=== PATIENT | female | born 1990 | race Caucasian/White ===

== ENCOUNTER 2022-09-25 09:32 | Outpatient (OUT) | payer OTHER, SELFPAY ==
--- NOTE | 2022-09-25 10:30 | US_ITS ---
The [address] [address] Patient Name: HERBERT VIEYRA MRN: [id number] date: 1990 Sex: F Assigned Patient Location: [place] Current Patient Location: [place] Accession/Order Number: [id number] Exam Date: 09/25/2022 09:52 Report Date: 09/25/2022 11:14 At the request of: TIM PANDYA Procedure: US renal bladder EXAM: US renal bladder HISTORY: . URINARY TRACT INFECTION COMPARISON: None. TECHNIQUE: Grayscale and color imaging was performed FINDINGS: Scanning of the right kidney demonstrates right kidney measures 12 x 4.1 x 6.1 cm. Color-flow is noted. No solid renal cortical masses or hydronephrosis is noted. Renal cortical echotexture is unremarkable. Left kidney measures 12.7 x 5 x 5.4 cm. Color-flow is noted. No solid renal cortical masses or hydronephrosis is noted. There is a 9 mm nonobstructing left renal calculus. Renal cortical echotexture is unremarkable. IMPRESSION: 1. Normal-appearing right kidney. 2. 9 mm nonobstructing left renal calculus. Electronically authenticated by: GERSNO MAYBERRY Date: 09/25/2022 11:14
== END 2022-09-25 09:33 ==
LOC: US 09:37
PROVIDERS: PCP Family Medicine; Visit Provider Urology
DX: N20.0 Calculus of kidney (principal)
CPT/HCPCS: 76770

== ENCOUNTER 2022-10-18 14:37 | Observation (INO) | payer OTHER, SELFPAY ==
--- NOTE | 2022-10-18 14:40 | US_ITS ---
[address] [address] Patient Name: HERBERT VIEYRA MRN: [id number] date: 1990 Sex: F Assigned Patient Location: [facility] Current Patient Location: [facility] Accession/Order Number: [id number] Exam Date: 10/18/2022 14:41 Report Date: 10/18/2022 15:35 At the request of: SAMUEL ATKINSON Procedure: US renal BI EXAMINATION: US renal BI HISTORY: back pain COMPARISON: No relevant comparison available. TECHNIQUE: Ultrasound examination was performed of the bladder. FINDINGS: Right Kidney: Normal in size, contour and echotexture. The cortex measures 1.4 cm. No hydronephrosis, obstructing nephrolithiasis or solid cortical mass Height: 4.1 cm Length: 11.6 cm Width: 5.5 cm Left Kidney: Normal size, contour and echotexture. The cortex measures 2.0 cm. Moderate hydronephrosis Height: 6.5 cm Length: 14.1 cm Width: 6.1 cm The urinary bladder is not visualized. head observed in the pelvis IMPRESSION: Moderate left hydronephrosis of unknown etiology. This could be related to intrauterine gestation or an unseen obstruction Electronically authenticated by: GERSON MELLO Date: 10/18/2022 15:35
--- NOTE | 2022-10-18 14:40 | US_ITS ---
[address] [address] Patient Name: HERBERT VIEYRA MRN: [id number] date: 1990 Sex: F Assigned Patient Location: [facility] Current Patient Location: [facility] Accession/Order Number: [id number] Exam Date: 10/18/2022 14:41 Report Date: 10/18/2022 15:32 At the request of: SAMUEL ATKINSON Procedure: US OB BPP w non-stress EXAMINATION: US OB BPP w non-stress HISTORY: back pain COMPARISON: No relevant comparison available. TECHNIQUE: Ultrasound biophysical profile was performed in the radiology department. FINDINGS: BREATHING MOVEMENTS: 2.0 GROSS BODY MOVEMENTS: 2.0 TONE: 2.0 QUALITATIVE AMNIOTIC FLUID VOLUME: 2.0 PRESENTATION: CEPHALIC HEART RATE: 140.6 bpm H.B./min AMNIOTIC FLUID VOLUME: 16.0 cm cm GESTATIONAL AGE: 32 weeks 5 days CONCLUSION: Total biophysical profile score: 8.0 Electronically authenticated by: GERSON MELLO Date: 10/18/2022 15:32
[2022-10-18] MEDS: ACETAMINOPHEN 500 MG TABLET 1000 MG PO (14:51)
[2022-10-18 15:20] VITALS: BP 82/49; PULSE 71
[2022-10-18 15:28] LABS: Bilirubin Urine NEGATIVE (NEGATIVE); Blood Urine NEGATIVE (NEGATIVE); Clarity Urine CLEAR (CLEAR); Color Urine YELLOW (YELLOW); Glucose Urine UA NEGATIVE (NEGATIVE); Ketones Urine NEGATIVE (NEGATIVE); Leukocyte Esterase Urine NEGATIVE (NEGATIVE); Nitrite Urine NEGATIVE (NEGATIVE); Protein Urine TRACE mg/dL (NEG/TRACE); Specific Gravity Urine >=1.030 (1.005-1.025); Urine Microscopic Indicated NO; Urobilinogen Urine 0.2 EU/dL (0.2-1.0)
[2022-10-18 15:39] LABS: Amphetamine Screen Urine NEGATIVE (NEGATIVE); Barbiturates Screen Urine NEGATIVE (NEGATIVE); Benzodiazepines Screen Urine NEGATIVE (NEGATIVE); Buprenorphine Screen Urine NEGATIVE (NEGATIVE); Cannabinoid Screen Urine POSITIVE (NEGATIVE); Cocaine Screen Urine NEGATIVE (NEGATIVE); Methadone Screen Urine NEGATIVE (NEGATIVE); Methamphetamines Screen Urine NEGATIVE (NEGATIVE); Opiate Screen Urine NEGATIVE (NEGATIVE); Oxycodone Screen Urine NEGATIVE (NEGATIVE); Phencyclidine Screen Urine NEGATIVE (NEGATIVE); Tricyclic Antidepressant Urine NEGATIVE (NEGATIVE)
[2022-10-18 15:41] VITALS: BP 92/50; PULSE 71
[2022-10-18] MEDS: 0.9 % SODIUM CHLORIDE 1,000 ML 1000 ML IV (16:09)
[2022-10-18] MEDS: 0.9 % SODIUM CHLORIDE 1,000 ML 125 ML IV (17:10)
== END 2022-10-18 18:10 | disposition home or self-care (01) ==
LOC: FBC 14:37
PROVIDERS: Admitting Provider Obstetrics & Gynecology; PCP Family Medicine; Visit Provider Obstetrics & Gynecology
DX: O26.893 Other specified pregnancy related conditions, third trimester (principal); M54.9 Dorsalgia, unspecified; Z3A.32 32 weeks gestation of pregnancy
CPT/HCPCS: 59025; 76775; 76818; 80307; 81003; G0378; G0379

== ENCOUNTER 2022-10-20 21:09 | Observation (INO) | payer OTHER, SELFPAY ==
[2022-10-20 21:33] VITALS: BP 106/57; PULSE 78
[2022-10-20 21:35] VITALS: PULSE 78; RESP 20; TEMP 35.6; TEMP 35.9
[2022-10-20 21:50] LABS: Bilirubin Urine NEGATIVE (NEGATIVE); Blood Urine TRACE-I (NEGATIVE); Clarity Urine CLEAR (CLEAR); Color Urine YELLOW (YELLOW); Glucose Urine UA NEGATIVE (NEGATIVE); Ketones Urine NEGATIVE (NEGATIVE); Leukocyte Esterase Urine NEGATIVE (NEGATIVE); Nitrite Urine NEGATIVE (NEGATIVE); Protein Urine 30 mg/dL (NEG/TRACE); Specific Gravity Urine >=1.030 (1.005-1.025); Urobilinogen Urine 0.2 EU/dL (0.2-1.0)
[2022-10-20 21:53] LABS: Urine Microscopic Indicated YES
[2022-10-20 21:56] LABS: Bacteria Urine SMALL #/HPF (NONE SEEN)
[2022-10-20 21:57] LABS: Calcium Oxalate Crystals Urine FEW; Cast Seen? NONE SEEN #/LPF (NONE SEEN); Crystals Seen? Seen #/HPF (None Seen); Mucus Urine NONE SEEN (NONE SEEN); Squamous Epithelial Cell Urine MANY #/LPF (NONE/RARE); Urine Culture Indicated YES
[2022-10-20 22:45] LABS: Basophils Percent Auto 0.3 % (0.2-2.0); Eosinophils Absolute Auto 0.1 10^3/uL (0.0-0.7); Eosinophils Percent Auto 0.8 % (0.9-7.0); Hematocrit 30.5 % (36.0-48.0); Hemoglobin 10.6 g/dL (12.0-16.0); Immature Granulocytes Pct Auto 0.9 % (0.0-0.5); Mean Corpuscular HGB Conc 34.8 g/dL (29.9-35.2); Mean Corpuscular Hemoglobin 32.4 pg (26.7-34.0); Mean Corpuscular Volume 93.3 fL (81.0-99.0); Mean Platelet Volume 9.8 fL (9.5-13.5); Monocytes Absolute Auto 0.9 10^3/uL (0.3-0.8); Monocytes Percent Auto 7.6 % (1.7-12.0); Neutrophils Absolute Auto 8.5 10^3/uL (1.4-6.5); Neutrophils Percent Auto 73.4 % (43.0-75.0); Platelet Count 214 10^3/uL (150-450); Red Blood Count 3.27 10^6/uL (4.20-5.40); Red Cell Distribution Width 12.5 % (11.0-15.0); White Blood Count 11.6 10^3/uL (4.0-11.0)
[2022-10-20 22:53] LABS: Alanine Aminotransferase 17 U/L (14-59); Amylase 38 U/L (25-115); Anion Gap 12.3; Aspartate Amino Transferase 15 U/L (15-37); Carbon Dioxide 22.7 mmol/L (21.0-32.0); Chloride 105 mmol/L (98-107); Estimated GFR (African America 56 (>=60); Estimated GFR (Non-African Ame 46 (>=60); Sodium 136 mmol/L (136-145)
[2022-10-20] MEDS: 0.9 % SODIUM CHLORIDE 1,000 ML 125 ML IV (23:01)
[2022-10-20] MEDS: NALBUPHINE HCL 10 MG/ML AMPULE IV (23:01)
--- NOTE | 2022-10-20 23:30 | PC.NURSE ---
Patient more comfortable and dozing at this time.
[2022-10-21] VITALS (18 sets, daily range): BP systolic 89–112; BP diastolic 49–75; PULSE 67–88; RESP 14–25; TEMP 36.1–37.1; O2SAT 95–100
[2022-10-21] MEDS: 0.9 % SODIUM CHLORIDE 1,000 ML 125 ML IV (00:04)
[2022-10-21] MEDS: CEFAZOLIN SODIUM/DEXTROSE 2 GM/50 ML PIGGYBACK IV (00:06)
--- NOTE | 2022-10-21 01:18 | PC.NURSE ---
Care relinquished to Duyen Lucero RN
[2022-10-21] MEDS: 0.9 % SODIUM CHLORIDE 1,000 ML 175 ML IV ×2 (05:49→12:14)
--- NOTE | 2022-10-21 07:00 | US_ITS ---
[address] [address] Patient Name: HERBERT VIEYRA MRN: [id number] date: 1990 Sex: F Assigned Patient Location: [facility] Current Patient Location: [facility] Accession/Order Number: [id number] Exam Date: 10/21/2022 07:20 Report Date: 10/21/2022 07:59 At the request of: MELISSA RENDON Procedure: US renal BI EXAM: Renal and bladder ultrasound CLINICAL INDICATION: Flank pain/ kidney stone. TECHNIQUE: Grayscale and color Doppler imaging was obtained of both kidneys. FINDINGS: RIGHT: No hydronephrosis. Cortical echogenicity and thickness is preserved. The kidney measures 10.9 cm length. 4 mm right calyceal nonobstructing stone. No abnormal renal masses identified. LEFT: Moderate left hydronephrosis is not significantly changed compared to 10/10/2022. Cortical echogenicity and thickness is preserved. The kidney measures 13.4 cm length. No sonographically evident renal calculi. No abnormal renal masses identified. Bladder: No obvious sonographic abnormality. IMPRESSION: Moderate left hydronephrosis is not significantly changed. Electronically authenticated by: ADIS KAPLAN Date: 10/21/2022 07:59
--- NOTE | 2022-10-21 07:13 | P.OBHP_ITS ---
OB - H&P: HPI History of Present Illness Chief complaint: BACK PAIN , CVA tenderness : 3 Para: 2 Gestational age based on last menstrual period: 32 6/7wks Meds Home Medications and Allergies Allergies Allergy/AdvReac Type Severity Reaction Status Date / Time No Known Allergies Allergy Verified 10/20/22 22:22 Exam Constitutional Vital Signs - 24 hr 10/20/22 21:33 10/20/22 21:35 10/20/22 21:35 Temperature 96.1 F L 96.7 F L Pulse Rate 78 78 Respiratory Rate 20 Blood Pressure 106/57 L Results Labs Labs: Short CBC 10/20/22 Range/Units 22:35 WBC 11.6 H (4.0-11.0) 10^3/uL Hgb 10.6 L (12.0-16.0) g/dL Hct 30.5 L (36.0-48.0) % Plt Count 214 (150-450) 10^3/uL BMP 10/20/22 22:35 Sodium 136 Potassium 4.0 Chloride 105 Carbon Dioxide 22.7 BUN 14.0 Creatinine 1.35 H Liver Function 10/20/22 Range/Units 22:35 AST 15 (15-37) U/L ALT 17 (14-59) U/L Urine 10/20/22 Range/Units 21:30 Urine Color Yellow (YELLOW) Urine Clarity Clear (CLEAR) Urine pH 6.0 (5.0-9.0) Ur Specific [place] >=1.030 A (1.005-1.025) Urine Protein 30 A (NEG/TRACE) mg/dL Urine Glucose (UA) Negative (NEGATIVE) mg/dL
--- NOTE | 2022-10-21 07:16 | PM.OBLDTN ---
OB - Triage/Final Diagnosis Visit Information Date of evaluation: 10/21/22 Reason for evaluation: other Comments/Additional reasons for admission: pt here for lt sided flank pain, nausea/vomiting, denies fevers, chills, denies urinay symptoms, positive fm, ua shows crystals and calcium oxalate along with hematuria Evaluation Laboratory results: Laboratory Tests 10/20/22 10/20/22 21:30 22:35 WBC 11.6 H RBC 3.27 L Hgb 10.6 L Hct 30.5 L MCV 93.3 MCH 32.4 MCHC 34.8 RDW 12.5 Plt Count 214 MPV 9.8 Neut % (Auto) 73.4 Lymph % (Auto) 17.0 L [place] % (Auto) 7.6 Eos % (Auto) 0.8 L Baso % (Auto) 0.3 Neut # (Auto) 8.5 H Lymph # (Auto) 2.0 [place] # (Auto) 0.9 H Eos # (Auto) 0.1 Baso # (Auto) 0.0 Abs Immat Gran (auto) 0.10 H Imm/Tot Granulo (auto) 0.9 H Sodium 136 Potassium 4.0 Chloride 105 Carbon Dioxide 22.7 Anion Gap 12.3 BUN 14.0 Creatinine 1.35 H Est GFR ( Amer) 56 L Est GFR (Non-Af Amer) 46 L AST 15 ALT 17 Amylase 38 Lipase 73.0 Urine Color Yellow Urine Clarity Clear Urine pH 6.0 Ur Specific [place] >=1.030 A Urine Protein 30 A Urine Glucose (UA) Negative Urine Ketones Negative Urine Occult Blood Trace-i Urine Nitrite Negative Urine Bilirubin Negative Urine Urobilinogen 0.2 Ur Leukocyte Esterase Negative Urine RBC 2-5 A Urine WBC 5-10 A Ur Squamous Epith Cells Many A Urine Crystals Seen A Calcium Oxalate Crystal Few Urine Bacteria Small A Urine Casts None seen Urine Mucus None seen Ur Culture Indicated? Yes Vital signs: Vital Signs - 24 hr 10/20/22 21:33 10/20/22 21:35 10/20/22 21:35 Temperature 96.1 F L 96.7 F L Pulse Rate 78 78 Respiratory Rate 20 Blood Pressure 106/57 L heart rate baseline: 110 keno terminal operator variability: Moderate (6-25 bpm) monitor accelerations: Present monitor decelerations: None
--- NOTE | 2022-10-21 07:21 | PM.OBPN ---
OB - PN: Subj Subjective Interval history: pt is a 32 yo at 32 6/7wks presents with lt sided flank pain, nausea and vomiting, pt denies fevers, chills, complains of suprapubic pain positive fm, denies vaginal bleeding, ctxns, lof Patient comments: other Exam Constitutional Vital Signs - 24 hr 10/20/22 21:33 10/20/22 21:35 10/20/22 21:35 Temperature 96.1 F L 96.7 F L Pulse Rate 78 78 Respiratory Rate 20 Blood Pressure 106/57 L Documenting provider has reviewed patient's vital signs: yes Common normals: alert General appearance: cooperative Respiratory Common normals: normal respiratory effort and clear to auscultation bilaterally Cardio Common normals: regular rate and regular rhythm GI Common normals: Normal to inspection, nondistended, normoactive bowel sounds present, soft to palpation and non-tender Auscultation: normoactive bowel sounds Common normals: CVA tenderness (lt sided cva tenderness) Bladder/kidney exam: CVA tenderness on the left Extremity Common normals: normal to inspection, no clubbing, cyanosis or edema and no calf tenderness Results Labs Labs: Short CBC 10/20/22 Range/Units 22:35 WBC 11.6 H (4.0-11.0) 10^3/uL Hgb 10.6 L (12.0-16.0) g/dL Hct 30.5 L (36.0-48.0) % Plt Count 214 (150-450) 10^3/uL BMP 10/20/22 22:35 Sodium 136 Potassium 4.0 Chloride 105 Carbon Dioxide 22.7 BUN 14.0 Creatinine 1.35 H Liver Function 10/20/22 Range/Units 22:35 AST 15 (15-37) U/L ALT 17 (14-59) U/L Urine 10/20/22 Range/Units 21:30 Urine Color Yellow (YELLOW) Urine Clarity Clear (CLEAR) Urine pH 6.0 (5.0-9.0) Ur Specific [place] >=1.030 A (1.005-1.025) Urine Protein 30 A (NEG/TRACE) mg/dL Urine Glucose (UA) Negative (NEGATIVE) mg/dL OB - PN: A/P Assessment and Plan (1) Kidney stones: Plan lt sided cva tenderness, suprapubic pain, ho kidney stones-cont iv hydration, cont iv abx, labs reviewed, awaiting renal ultrasound, considering urology consult Time Spent with Patient Time: Total time spent is greater than 50% in coordination of care (as documented) at patient's floor/unit and/or counseling patient: Total time spent with greater than 50% in coordination of care (as documented) at patient's floor/unit and/or counseling patient: 25 - 35 minutes
--- NOTE | 2022-10-21 08:25 | US_ITS ---
The [address] [address] Patient Name: HERBERT VIEYRA MRN: [id number] date: 1990 Sex: F Assigned Patient Location: [facility] Current Patient Location: [facility] Accession/Order Number: [id number] Exam Date: 10/21/2022 09:10 Report Date: 10/21/2022 10:22 At the request of: TIM PANDYA Procedure: US bladder US bladder CLINICAL HISTORY: left flank pain, elevated creatinine COMPARISON: 10/21/2022. TECHNIQUE: Routine transverse and longitudinal grayscale images of the bladder. FINDINGS: Visualized lower pelvis demonstrates intrauterine with cephalic presentation. Cervix not well evaluated. No other imaging is provided. Mild urinary bladder distention. Right ureteral jet is seen with none on the left after 15 minute visualization. Urinary bladder with 98 mL prevoid volume. No significant post void residual. Focused imaging left kidney demonstrates unchanged moderate left hydronephrosis pre and post. IMPRESSION: Mild urinary bladder distention but with persistent unchanged moderate left hydronephrosis both pre and post void. No left ureteral jet seen for 15 minutes. Electronically authenticated by: DAR ESCUDERO Date: 10/21/2022 10:22
[2022-10-21] MEDS: ONDANSETRON PF 4 MG/2 ML VIAL IV ×2 (09:04→14:49)
[2022-10-21] MEDS: NALBUPHINE HCL 10 MG/ML AMPULE IV (09:18)
--- NOTE | 2022-10-21 11:00 | XR_ITS ---
[address] [address] Patient Name: HERBERT VIEYRA MRN: [id number] date: 1990 Sex: F Assigned Patient Location: [facility] Current Patient Location: [facility] Accession/Order Number: [id number] Exam Date: 10/21/2022 11:00 Report Date: 10/21/2022 21:28 At the request of: TIM PANDYA Procedure: XR urethrogram retrograde X-RAY RETROGRADE CYSTOURETHROGRAM HISTORY: LEFT KIDNEY STONE COMPARISON: None. DLP/Contrast: 1.23 mGycm FINDINGS/IMPRESSION: There was one image a provided for interpretation. There is contrast in the left renal collecting system with mild hydronephrosis. There is a left ureteral stent proximal portion visualized. Correlate with procedure note. Electronically authenticated by: DINORA BARRAZA Date: 10/21/2022 21:28
--- NOTE | 2022-10-21 11:23 | PM.CN ---
Consult Note: HPI Data of Consult Consult date: 10/21/22 Requesting Physician: Chandu Hernandez DO Primary Care Provider: VICTORIANO RINCON Consult Narrative Reason for consult: left hydronephrosis, CAMPBELL, renal colic, history of kidney stone Narrative: 32 year old female at 32 6/7wks gestation with a history of BL renal stones presents with worsening left sided flank pain, nausea and vomiting. Pt denies fevers, chills, dysuria. Labs showed CAMPBELL Cr 1.3, mild leukocytosis 11, UA neg for UTI. Renal US shows moderate L hydronephrosis, prior left lower pole renal stone from US 09/21/22 no longer seen. No ureteral jets were obtained during this US. Repeat later showed no left ureteral jet x 15 minutes. Pt continues to have uncontrolled pain, nausea and emesis. On empiric Ancef. Seen outpt 09/20/22 - at that time she had mild L hydronephrosis with 9 mm LLP stone from recent renal US. Repeat renal US showed no hydronephrosis, 9mm LLP non obstructing stone in place, BL ureteral jets. She was asymptomatic until this past week, likely due to stone now passing. cc:: CC: Chandu Hernandez DO Review of Systems ROS Constitutional Denies: fever or chills Eyes Denies: change in vision or blurry vision Cardiovascular Denies: chest pain or palpitations Respiratory Denies: shortness of breath or cough Gastrointestinal Reports: abdominal pain (LLQ ), nausea and vomiting Genitourinary Reports: pelvic pain; Denies: painful urination Musculoskeletal Reports: back pain; Denies: extremity pain Integumentary/Breast Denies: rash or itching Neurological Denies: headache or numbness in extremities Psychiatric Denies: anxiety or memory loss Meds Home Medications and Allergies Home Medications Medication Instructions Recorded Confirmed Type cephalexin 500 mg capsule 500 mg PO TID 7 days #21 caps 10/21/22 Rx oxycodone-acetaminophen 5 mg-325 1 tab PO Q6H PRN pain 5 days #20 10/21/22 Rx mg tablet (Percocet) tabs Allergies Allergy/AdvReac Type Severity Reaction Status Date / Time No Known Allergies Allergy Verified 10/20/22 22:22 Exam Narrative Exam Narrative: Lying in bed. Moderate to severe distress Sweating, appears uncomfortable Non labored respirations, on room air Normal rate and rhythm Abd gravity, LLQ/hip pain No BL CVA tenderness Moves all extremities Motor/sensation intact, no acute focal deficits Appropriate, cooperative, alert and oriented Constitutional Vital Signs - 24 hr 10/20/22 21:33 10/20/22 21:35 10/21/22 09:58 Temperature 96.1 F L Pulse Rate 78 71 Respiratory Rate Blood Pressure 106/57 L 112/55 L Blood Pressure [Left Radial Artery] 10/20/22 21:35 10/21/22 09:00 Temperature 96.7 F L 98.2 F Pulse Rate 78 75 Respiratory Rate 20 18 Blood Pressure Blood Pressure [Left Radial Artery] 112/75 Results Labs Labs: Short CBC 10/20/22 Range/Units 22:35 WBC 11.6 H (4.0-11.0) 10^3/uL Hgb 10.6 L (12.0-16.0) g/dL Hct 30.5 L (36.0-48.0) % Plt Count 214 (150-450) 10^3/uL BMP 10/20/22 22:35 Sodium 136 Potassium 4.0 Chloride 105 Carbon Dioxide 22.7 BUN 14.0 Creatinine 1.35 H Liver Function 10/20/22 Range/Units 22:35 AST 15 (15-37) U/L ALT 17 (14-59) U/L Urine 10/20/22 Range/Units 21:30 Urine Color Yellow (YELLOW) Urine Clarity Clear (CLEAR) Urine pH 6.0 (5.0-9.0) Ur Specific [place] >=1.030 A (1.005-1.025) Urine Protein 30 A (NEG/TRACE) mg/dL Urine Glucose (UA) Negative (NEGATIVE) mg/dL Imaging US - abdomen: Attestation: I have reviewed the pertinent imaging results. (MRN: [facility]:[id number] date: 1990 Sex: F Assigned Patient Location: [facility] Current Patient Location: [facility] Accession/Order Number: [id number] Exam Date: 10/21/2022 09:10 Report Date: 10/21/2022 10:22 At the request of: TIM PANDYA Procedure: US bladder US bladder CLINICAL HISTO) My impression: Renal, bladder US 10/21/22: Moderate left hydronephrosis. No L ureteral jet, consistent with left ureteral obstruction. Distal stone potentially seen. 4 mm right non obstructing stone Assessment and Plan Assessment and Plan (1) Kidney stones: (2) Hydronephrosis, left: (3) Acute unilateral obstructive uropathy: (4) CAMPBELL (acute kidney injury): (5) Renal colic on left side: Plan 32 year old female at 32 6/7wks gestation with uncontrolled left flank/LLQ pain and findings of left hydronephrosis with obstruction and CAMPBELL. Prior 9 mm LLP stone no longer visible. Discussed risks and benefits of management options for suspected obstructing left ureteral stone. Given patient's uncontrollable pain PO intolerance and CAMPBELL, patient elected to proceed to the OR for cystoscopy, left ureteroscopy with laser lithotripsy, stone basket extraction, left stent placement. Risks were discussed including but not limited to bleeding, pain, infection, damage to surroounding structures, inability to treat the stone/place a stent and need for additional procedures. Additional risks were discussed including labor given 3rd trimester. Also discussed need for frequent stent exchanges if needed to stay in situ during . Dr. Hernandez notified, plans for monitoring pre and post op.
--- NOTE | 2022-10-21 11:31 | PC.NURSE ---
0710 Report received, vomited large emesis and writhing in pain, pain to left flank which pt states feels swollen to the touch, pain also radiates to low left hip and abdomen area. instructed on plan of care
--- NOTE | 2022-10-21 11:40 | PC.NURSE ---
9095 Dr Hernandez sees pt and views labs, orders received. US to room
--- NOTE | 2022-10-21 11:53 | PC.NURSE ---
0900 Zofran given for intermittent nausea, continues to cry, Dr Bonds consulted and orders received and discussed with pt
--- NOTE | 2022-10-21 12:03 | PC.NURSE ---
0915 US at bedside, medicated with Nubain
--- NOTE | 2022-10-21 12:04 | PC.NURSE ---
0947 Dr Bonds notified of US results, states will take pt to surgery for complete blockage r/t probable stone, encourages RN to call Dr Hernandez with plan of care
--- NOTE | 2022-10-21 12:08 | PC.NURSE ---
1100 Dr Bonds available at bedside and explains surgery to pt and consent signed
--- NOTE | 2022-10-21 13:19 | P.URON_ITS ---
Urology Surgery Operative Note Operative Note Procedure Date: 10/21/22 Time Out Performed: yes Pre-op Diagnosis: 1. Left ureteral stone with hydronephrosis and obstruction 2. Acute renal injury 3. Renal colic Post-op Diagnosis: Same Procedures performed: Cystoscopy, left retrograde pyelogram, ureteroscopy with laser lithotripsy/stone extraction, stent placement Anesthesia: MAC and spinal (Dr. Mauri Rodgers) Primary Surgeon: Diane Falcon Complications: none Estimated blood loss (mL): 1 Findings: Ureteral stone was pushed up into kidney with wire placement. Concentrated urine with some debris (Urine culture sent). ~ 9x5mm stone in upper pole laser lithotripsied. Larger fragments removed. Unable to advance sheath past mid ureter due to ureteral narrowing, limiting visibility and stone removal. 3-4 mm stone in LLP, unable to remove/fragment due to angle. No extravasation of contrast or filling defects of left moderate hydronephrosis. Specimens: 1. Left renal pelvis for culture 2. Left renal stone Drains: 6Fr x 22-30 JJ left ureteral stent Indications for Procedures: 32 year old female at 32-6/7 weeks gestation admitted with left obstructive uropathy, CAMPBELL, uncontrolled renal colic and PO intolerance due to a 9 mm stone. After discussion of risks/benefits of management options including labor, patient elected to proceed urgently to the OR for the above procedures. Detailed description of Procedure: After informed consent was obtained, the patient was brought to the operating room and transferred onto the operating table in supine position. Sequential compression devices were placed on bilateral lower extremities. The patient received the appropriate dose of preoperative IV antibiotics and spinal and MAC anesthesia was induced. They were positioned in modified dorsolithotomy with the appropriate pressure points padded, prepped, and draped in the usual sterile fashion for this procedure. The left hip was bumped up and a lead apron was used to cover the right side and lower abd of the patient. leaving only the left kidney visible. An operative safety timeout was performed confirming the patient's identity, laterality and procedure, and all present agreed to proceed. I began by inserting a 22 [place] rigid cystoscope with 30 degree lens into the patient's urethra and bladder without difficulty. There were no bladder tumors, lesions or foreign bodies. Bilateral ureteral orifices were orthotopic and patent. I turned my attention to the left ureteral orifice and a sensor wire was inserted into the ureter up to the renal pelvis. Next a semirigid ureteroscope was inserted along the wire to gain access to the ureteral stone. However, no stone was found up to the proximal-mid ureter. Next a flexible ureteroscope was inserted over the wire and advanced to the kidney where the stone was now found in renal pelvis. Ureteroscope was removed and an 11/13 [place] by 36 cm ureteral access sheath was inserted over the wire in a sequential fashion to gain access to the renal pelvis, unfortunately meeting resistance and unable to advance past mid ureter. The flexible ureterscope was inserted through the sheath and the stone was pushed into the upper pole. A 275 ?m holmium laser fiber was used to break the stone into fragments which were then removed with a 2.2 tipless basket. Due to soft aspects of the stone and ureter, the fragments was difficult to fully remove. The remaining fragments were dusted as much as possible. Visibility was limited, despite repeat manual aspirations to decompress the pelvis. After the stone was adequately treated, a full renoscopy was performed with findings as above. The wire was reinserted, contrast was injected with fi ndings above and a pull down ureteroscopy was performing confirming no stones were in the ureter. The wire was backloaded through the cystoscope and 6 Fr x 22-30cm JJ variable length ureteral stent was advanced over the wire, noting adequate curl in the renal pelvis and bladder on fluoroscopic and direct visualization. The bladder was drained and inspected one final time to ensure adequate position of stent and no undue trauma to the bladder was done. The stones sent for pathology and the cystoscope was removed. The patient tolerated the procedure well without complication. The patient was awakened from anesthesia and sent to PACU in stable condition. Plan: Return to OB floor. Ok for dc home later if pain controlled and doing well. Tamsulosin and AZO prn for stent irritation and bladder pain. Follow up on intraop culture to ensure on appropriate abx if needed (preop UA neg for UTI). -Follow up in 2-3 wks with renal US to determine stent removal vs need for 2nd ureteroscopy after delivery vs stent exchange. Pt's mother was updated on findings and plan of care. Increased fluid intake was highlighted. Other Provider present: No Attending Doc Confirm Attending Attestation: Yes
[2022-10-21 13:51] LABS: Bilirubin Urine NEGATIVE (NEGATIVE); Blood Urine LARGE (NEGATIVE); Color Urine YELLOW (YELLOW); Glucose Urine UA NEGATIVE (NEGATIVE); Ketones Urine TRACE mg/dL (NEGATIVE); Leukocyte Esterase Urine MODERATE (NEGATIVE); Nitrite Urine NEGATIVE (NEGATIVE); Protein Urine 30 mg/dL (NEG/TRACE); Specific Gravity Urine 1.015 (1.005-1.025); Urobilinogen Urine 0.2 EU/dL (0.2-1.0)
[2022-10-21 13:52] LABS: Clarity Urine SLIGHTLY CLOUDY (CLEAR); Urine Microscopic Indicated YES
[2022-10-21 13:59] LABS: Bacteria Urine NONE SEEN #/HPF (NONE SEEN); Crystals Seen? None Seen #/HPF (None Seen); Mucus Urine NONE SEEN (NONE SEEN); RBC Urine 75-100 #/HPF (0-2); Squamous Epithelial Cell Urine RARE #/LPF (NONE/RARE)
[2022-10-21 14:00] LABS: Cast Seen? NONE SEEN #/LPF (NONE SEEN); Urine Culture Indicated NO
[2022-10-21] MEDS: NIFEdipine 10 MG CAPSULE 20 MG PO (15:47)
[2022-10-21] MEDS: TAMSULOSIN HCL 0.4 MG CAPSULE PO (16:04)
--- NOTE | 2022-10-21 16:26 | PC.NURSE ---
1600 voids large amount in bed involuntarily, Dr Hernandez aware and order for flomax given
[2022-10-21] MEDS: RHO(D) IMMUNE GLOBULIN 1,500 UNIT SYRINGE 300 UNIT IV (18:25)
[2022-10-21] MEDS: PROMETHAZINE HCL 25 MG/ML VIAL 12.5 MG IV (18:39)
--- NOTE | 2022-10-21 19:54 | PC.NURSE ---
1650 voids large amount in bed, involuntarily. urine appears clear yellow
--- NOTE | 2022-10-21 19:55 | PC.NURSE ---
1700 up to void with assist of RN, able to ambulate easily, states feels empty and uncomfortable returns to bed then medicated with percocet
--- NOTE | 2022-10-21 20:02 | PC.NURSE ---
1819 Dr lombardi updated on pt feeling tired and continued intermittent nausea, orders received
--- NOTE | 2022-10-21 20:03 | PC.NURSE ---
1840 medicated with phenergan and monitor applied, denies pain currently, plan of care discussed
[2022-10-22] VITALS: RESP 14
[2022-10-22] MEDS: ZOLPIDEM TARTRATE 10 MG TABLET PO (00:08)
[2022-10-22 00:14] VITALS: BP 103/59; PULSE 65; RESP 14; TEMP 36.2
--- NOTE | 2022-10-22 00:32 | PC.NURSE ---
RN flushes IV site at this time prior to medication administration. With initial 1 ml from flush, pt complaining of tenderness then pt denied pain with the rest of flush. IV site WNLs. Pt states the tape is itchy but denies need for intervention.
[2022-10-22] MEDS: ONDANSETRON PF 4 MG/2 ML VIAL IV (00:44)
--- NOTE | 2022-10-22 10:27 | PC.NURSE ---
up to BR per self to void,QS richard/pink urine noted. Then returns to bed per self. Eats breakfast, d/c plan of care reviewed. verbalizes understanding.
--- NOTE | 2022-10-22 12:10 | PM.OBPN ---
OB - PN: Subj Subjective Interval history: pt is a 32 yo at 32 6/7wks presents with lt sided flank pain, nausea and vomiting, pt denies fevers, chills, complains of suprapubic pain positive fm, denies vaginal bleeding, ctxns, lof Patient comments: pain well controlled Narrative: Patient states she feels much better since the stent procedure. She states she can void now and she feels much better. does desire to go home today. Exam Constitutional Vital Signs - 24 hr 10/21/22 13:35 10/21/22 13:53 10/21/22 14:08 Temperature Pulse Rate 78 74 74 Respiratory Rate Blood Pressure 101/49 L 97/51 L 95/55 L Pulse Oximetry Oxygen Delivery Method 10/21/22 14:53 10/21/22 15:11 10/21/22 15:23 Temperature Pulse Rate 70 77 67 Respiratory Rate Blood Pressure 96/55 L 102/55 L 102/55 L Pulse Oximetry Oxygen Delivery Method 10/21/22 15:38 10/21/22 15:38 10/22/22 00:14 Temperature 98.8 F Pulse Rate 70 65 Respiratory Rate 18 Blood Pressure 99/55 L 103/59 L Pulse Oximetry Oxygen Delivery Method 10/22/22 00:14 10/21/22 12:50 10/21/22 13:00 Temperature 97.1 F L 97 F L Pulse Rate 78 Respiratory Rate 14 24 Blood Pressure 89/49 L Pulse Oximetry 95 Oxygen Delivery Method Room Air Room Air 10/21/22 12:53 10/21/22 12:55 10/21/22 12:56 Temperature Pulse Rate 84 83 Respiratory Rate 18 18 Blood Pressure 89/49 L Pulse Oximetry 97 97 98 Oxygen Delivery Method 10/21/22 12:56 10/21/22 12:56 10/21/22 12:58 Temperature Pulse Rate 88 85 79 Respiratory Rate 19 25 H 16 Blood Pressure 89/49 L 91/56 L Pulse Oximetry 95 96 98 Oxygen Delivery Method 10/21/22 13:00 10/21/22 13:05 10/21/22 13:10 Temperature Pulse Rate 76 73 75 Respiratory Rate 19 19 16 Blood Pressure 95/53 L 95/54 L 97/53 L Pulse Oximetry 98 98 98 Oxygen Delivery Method 10/21/22 13:20 10/22/22 00:00 Temperature Pulse Rate 75 Respiratory Rate 14 14 Blood Pressure 102/60 Pulse Oximetry 100 Oxygen Delivery Method Room Air Room Air Documenting provider has reviewed patient's vital signs: yes Common normals: no apparent distress General appearance: cooperative HENMT Common normals: normocephalic Chest Common normals: inspection of chest normal Respiratory Common normals: normal respiratory effort Cardio Common normals: regular rate and regular rhythm Rate: regular rate Rhythm: regular rhythm GI Common normals: Normal to inspection, nondistended, normoactive bowel sounds present Auscultation: normoactive bowel sounds Palpation: soft Common normals: no CVA tenderness Psych Common normals: mental status grossly normal and thought process normal Attitude: calm Speech: normal speech Results Labs Labs: Urine 10/21/22 Range/Units 13:00 Urine Color Yellow (YELLOW) Urine Clarity Slightly cloudy A (CLEAR) Urine pH 6.0 (5.0-9.0) Ur Specific [place] 1.015 (1.005-1.025) Urine Protein 30 A (NEG/TRACE) mg/dL Urine Glucose (UA) Negative (NEGATIVE) mg/dL OB - PN: A/P Assessment and Plan (1) Kidney stones: (2) Hydronephrosis, left: (3) Acute unilateral obstructive uropathy: (4) CAMPBELL (acute kidney injury): (5) Renal colic on left side: Time Spent with Patient Time: Total time spent is greater than 50% in coordination of care (as documented) at patient's floor/unit and/or counseling patient: Total time spent with greater than 50% in coordination of care (as documented) at patient's floor/unit and/or counseling patient: less than 15 minutes
--- NOTE | 2022-10-22 12:21 | PM.OBDS ---
DS: Providers Provider Date of admission: 10/20/22 21:09 Primary care physician: VICTORIANO RINCON Admitting clinician: Chandu Hernandez Attending physician on admission: Chandu Hernandez Consults: 10/21/22 Consult to Urology Routine Consulting Provider: Diane Falcon Attending physician on discharge: CRISTOFER NUNEZ Discharging clinician: CRISTOFER NUNEZ Anticipated date of discharge: 10/22/22 DS: Diagnosis Discharge Diagnosis (1) Kidney stones: (2) Hydronephrosis, left: (3) Acute unilateral obstructive uropathy: (4) CAMPBELL (acute kidney injury): (5) Renal colic on left side: OB - DS: Summary Hospital Course Time spent discussing smoking cessation with patient: more than 10 minutes Peripartum Data - Procedures: Procedures Operation Date: 10/21/22 11:00 Actual Procedure Side Surgeon p Cysto, LEFT Ureteroscopy, LEFT RETROGRTADE,HOLMIUM LASER,BASKET STONE EXTRACTION, left Stent Insert Not Applicable Diane Falcon MD Peripartum Data - Vaginal Delivery Procedures: Procedures Operation Date: 10/21/22 11:00 Actual Procedure Side Surgeon p Cysto, LEFT Ureteroscopy, LEFT RETROGRTADE,HOLMIUM LASER,BASKET STONE EXTRACTION, left Stent Insert Not Applicable Diane Falcon MD Complications complications: other Time Spent with Patient Time attestation: Total time spent providing and/or coordinating discharge services: Time spent: less than 30 minutes Exam Constitutional Vital Signs - 24 hr 10/21/22 13:35 10/21/22 13:53 10/21/22 14:08 Temperature Pulse Rate 78 74 74 Respiratory Rate Blood Pressure 101/49 L 97/51 L 95/55 L Pulse Oximetry Oxygen Delivery Method 10/21/22 14:53 10/21/22 15:11 10/21/22 15:23 Temperature Pulse Rate 70 77 67 Respiratory Rate Blood Pressure 96/55 L 102/55 L 102/55 L Pulse Oximetry Oxygen Delivery Method 10/21/22 15:38 10/21/22 15:38 10/22/22 00:14 Temperature 98.8 F Pulse Rate 70 65 Respiratory Rate 18 Blood Pressure 99/55 L 103/59 L Pulse Oximetry Oxygen Delivery Method 10/22/22 00:14 10/21/22 12:50 10/21/22 13:00 Temperature 97.1 F L 97 F L Pulse Rate 78 Respiratory Rate 14 24 Blood Pressure 89/49 L Pulse Oximetry 95 Oxygen Delivery Method Room Air Room Air 10/21/22 12:53 10/21/22 12:55 10/21/22 12:56 Temperature Pulse Rate 84 83 Respiratory Rate 18 18 Blood Pressure 89/49 L Pulse Oximetry 97 97 98 Oxygen Delivery Method 10/21/22 12:56 10/21/22 12:56 10/21/22 12:58 Temperature Pulse Rate 88 85 79 Respiratory Rate 19 25 H 16 Blood Pressure 89/49 L 91/56 L Pulse Oximetry 95 96 98 Oxygen Delivery Method 10/21/22 13:00 10/21/22 13:05 10/21/22 13:10 Temperature Pulse Rate 76 73 75 Respiratory Rate 19 19 16 Blood Pressure 95/53 L 95/54 L 97/53 L Pulse Oximetry 98 98 98 Oxygen Delivery Method 10/21/22 13:20 10/22/22 00:00 Temperature Pulse Rate 75 Respiratory Rate 14 14 Blood Pressure 102/60 Pulse Oximetry 100 Oxygen Delivery Method Room Air Room Air Documenting provider has reviewed patient's vital signs: yes Common normals: no apparent distress General appearance: cooperative and comfortable HENMT Common normals: normocephalic Chest Common normals: inspection of chest normal Respiratory Common normals: normal respiratory effort Effort & inspection: able to speak in complete sentences Auscultation: clear to auscultation bilaterally Cardio Common normals: no JVD, regular rate and regular rhythm Rate: regular rate Rhythm: regular rhythm GI Common normals: Normal to inspection, nondistended, normoactive bowel sounds present Inspection: normal to inspection Auscultation: normoactive bowel sounds Palpation: soft Common normals: no CVA tenderness Psych Common normals: mental status grossly normal and thought process normal DS: Data Data Completed and Pending Labs on day of discharge: Labs from last 24 hours 10/21/22 10/21/22 16:38 13:00 Urine Color Yellow Urine Clarity Slightly cloudy A Urine pH 6.0 Ur Specific [place] 1.015 Urine Protein 30 A Urine Glucose (UA) Negative Urine Ketones Trace A Urine Occult Blood Large A Urine Nitrite Negative Urine Bilirubin Negative Urine Urobilinogen 0.2 Ur Leukocyte Esterase Moderate A Urine RBC 75-100 A Urine WBC 2-5 A Ur Squamous Epith Cells Rare Urine Crystals None seen Urine Bacteria None seen Urine Casts None seen Urine Mucus None seen Ur Culture Indicated? No Blood Type A Negative Antibody Screen Negative Discharge Plan Discharge Disposition: Home, Self-Care (OBS FBC) Condition: Good Care Plan Goals: patient will be discharged today and has follow up appointments scheduled with dr Hernandez and Dr Araya-urology Discharge Medications: New oxycodone-acetaminophen [Percocet] 5-325 mg tablet 1 tab PO Q6H PRN (Reason: pain) 5 Days Qty: 20 0RF cephalexin 500 mg capsule 500 mg PO TID 7 Days Qty: 21 0RF tamsulosin 0.4 mg capsule 0.4 mg PO DAILY Qty: 30 2RF Patient Instructions: Kidney Stones (DC), Ureteral Stent Placement (DC), Ureteroscopy (DC) Activity Restrictions/Additional Instructions: Tamsulosin daily for stent pain. If you get lightheaded or dizzy, take at night. You can purchase AZO [id number] for urinary discomfort and burning with urination. This will make your urine orange. Drink plenty of fluids to keep urine light. Seeing blood in urine or red is normal. If you are unable to urinate, please call the office or present to ER. Referrals: Diane Falcon MD [Physician] - (Office will call to schedule follow up in 2-3 weeks with renal US just before appointment)
[2022-10-31 00:07] LABS: Calcium Oxalate Monohydrate 20 % (.); Calcium phosphate (hydroxyl) 80 % (.)
== END 2022-10-22 12:40 | disposition home or self-care (01) ==
PROVIDERS: Urology; Admitting Provider Obstetrics & Gynecology; PCP Family Medicine; Visit Provider Obstetrics & Gynecology
PROC: (CPT 52356; principal; 2022-10-21 11:00)
DX: O26.893 Other specified pregnancy related conditions, third trimester (principal); N13.2 Hydronephrosis with renal and ureteral calculous obstruction; N17.9 Acute kidney failure, unspecified; Z3A.32 32 weeks gestation of pregnancy
CPT/HCPCS: 52356; 36415; 59025; 74420; 76775; 76857; 80051; 81003; 81015; 82150; 82365; 82565; 83690; 84450; 84460; 84520; 85025; 86850; 86900; 86901; 87086; 96374; 96375; 96376; 99999; C1874; G0378; G0379; J2300; J2704; J2790

== ENCOUNTER 2022-10-27 09:37 | Outpatient (OUT) | payer OTHER, SELFPAY ==
--- NOTE | 2022-10-27 09:47 | US_ITS ---
[address] [address] Patient Name: HERBERT VIEYRA MRN: [id number] date: 1990 Sex: F Assigned Patient Location: Current Patient Location: US Accession/Order Number: [id number] Exam Date: 10/27/2022 09:50 Report Date: 10/27/2022 16:44 At the request of: TIM PANDYA Procedure: US renal BI EXAMINATION: US renal BI HISTORY: Ureteral stone, hydronephrosis COMPARISON: 10/21/2022 TECHNIQUE: Ultrasound examination was performed of the bladder. FINDINGS: Right Kidney: Normal in size, contour and echotexture with no solid cortical mass, hydronephrosis or obstructing nephrolithiasis. The cortex measures 1.4 cm Height: 5.0 cm Length: 9.8 cm Width: 4.7 cm Left Kidney: Asymmetrically enlarged in size, normal in, contour and echotexture with no solid cortical mass. The cortex measures 1.8 cm. Moderate hydronephrosis. Area of linear hyperechogenicity, I suspect a ureteral stent. 6 mm echogenic focus, nephrolith Height: 6.6 cm Length: 13.5 cm Width: 5.2 cm Urinary bladder measures 2.4 x 5.5 x 9.1 cm a volume of 84.6 mL IMPRESSION: Moderate left hydronephrosis Electronically authenticated by: GERSON MELLO Date: 10/27/2022 16:44
== END 2022-10-27 09:38 | disposition home or self-care (01) ==
LOC: US 09:38
PROVIDERS: PCP Family Medicine; Visit Provider Urology
DX: N13.2 Hydronephrosis with renal and ureteral calculous obstruction (principal)
CPT/HCPCS: 76775

== ENCOUNTER 2022-11-01 11:09 | Outpatient (OUT) | payer OTHER, SELFPAY ==
--- NOTE | 2022-11-01 11:14 | US_ITS ---
[address] [address] Patient Name: HERBERT VIEYRA MRN: [id number] date: 1990 Sex: F Assigned Patient Location: US Current Patient Location: US Accession/Order Number: [id number] Exam Date: 11/01/2022 11:20 Report Date: 11/01/2022 19:51 At the request of: TIM PANDYA Procedure: US bladder EXAM: US bladder HISTORY: Unspecified hydronephrosis N13.30 COMPARISON: Ultrasound bladder 10/21/2022 TECHNIQUE: Multiple sonographic images of the urinary bladder were obtained. FINDINGS: The urinary bladder is mildly distended, with a prevoid volume of 79 mL. The post void volume is 12 mL. Evaluation for bladder wall thickening is limited. A ureteral stent is in place on the left. The left ureteral jet is partially visualized. The right ureteral jet is present. Moderate left hydronephrosis persists. US/US bladder IMPRESSION: The urinary bladder is initially is not very well distended. The left stent remains in place with the faint ureteral jet on the left. Moderate hydronephrosis is present. Electronically authenticated by: KAREN SUAZO Date: 11/01/2022 19:51
== END 2022-11-01 11:10 | disposition home or self-care (01) ==
LOC: US 11:10
PROVIDERS: PCP Family Medicine; Visit Provider Urology
DX: N13.30 Unspecified hydronephrosis (principal)
CPT/HCPCS: 76857

== ENCOUNTER 2022-11-09 19:46 | Outpatient (REF) | payer OTHER, SELFPAY | END 2022-11-09 19:47 | disposition home or self-care (01) | LOC: LAB 19:46 | PROVIDERS: PCP Family Medicine; Visit Provider Physician Assistant | DX: Z34.93 Encounter for supervision of normal pregnancy, unspecified, third trimester (principal) | CPT/HCPCS: 87081 ==

== ENCOUNTER 2022-11-16 09:51 | Outpatient (OUT) | payer OTHER, SELFPAY | END 2022-11-16 09:52 | disposition home or self-care (01) | LOC: PST 09:51 | PROVIDERS: PCP Family Medicine; Visit Provider Urology | DX: Z01.818 Encounter for other preprocedural examination (principal); N13.2 Hydronephrosis with renal and ureteral calculous obstruction ==

== ENCOUNTER 2022-11-20 05:01 | Inpatient (IN) | payer OTHER, SELFPAY ==
[2022-11-20] VITALS (89 sets, daily range): BP systolic 91–136; BP diastolic 44–77; PULSE 62–106; RESP 16–18; TEMP 36.6–37.2
[2022-11-20 05:54] LABS: Hematocrit 29.8 % (36.0-48.0); Hemoglobin 10.5 g/dL (12.0-16.0); Mean Corpuscular HGB Conc 35.2 g/dL (29.9-35.2); Mean Corpuscular Hemoglobin 32.4 pg (26.7-34.0); Mean Platelet Volume 10.8 fL (9.5-13.5); Platelet Count 221 10^3/uL (150-450); Red Blood Count 3.24 10^6/uL (4.20-5.40); Red Cell Distribution Width 13.2 % (11.0-15.0)
[2022-11-20] MEDS: OXYTOCIN 10 UNIT in 0.9 % SODIUM CHLORIDE 500 ML 6.012 UNIT IV (05:59)
[2022-11-20] MEDS: 0.9 % SODIUM CHLORIDE 1,000 ML 125 ML IV ×2 (06:00→15:21)
[2022-11-20 06:06] LABS: Amphetamine Screen Urine NEGATIVE (NEGATIVE); Benzodiazepines Screen Urine NEGATIVE (NEGATIVE); Cannabinoid Screen Urine POSITIVE (NEGATIVE); Cocaine Screen Urine NEGATIVE (NEGATIVE); Methamphetamines Screen Urine NEGATIVE (NEGATIVE); Opiate Screen Urine NEGATIVE (NEGATIVE); Phencyclidine Screen Urine NEGATIVE (NEGATIVE)
[2022-11-20 06:07] LABS: Barbiturates Screen Urine NEGATIVE (NEGATIVE); Buprenorphine Screen Urine NEGATIVE (NEGATIVE); Methadone Screen Urine NEGATIVE (NEGATIVE); Oxycodone Screen Urine NEGATIVE (NEGATIVE); Tricyclic Antidepressant Urine NEGATIVE (NEGATIVE)
[2022-11-20] MEDS: FENTANYL CITRATE/PF 100 MCG/2 ML VIAL EPIDURAL ×2 (10:07→10:10)
[2022-11-20] MEDS: EPHEDRINE SULFATE 50 MG/ML VIAL IV (10:08)
[2022-11-20] MEDS: 0.9 % SODIUM CHLORIDE 1,000 ML 1000 ML IV ×2 (10:09→10:10)
[2022-11-20] MEDS: ROPIVACAINE HCL/PF 400 MG/200 ML PREMIX 10 MG EPIDURAL (10:12)
--- NOTE | 2022-11-20 11:50 | US_ITS ---
[address] [address] Patient Name: HERBERT VIEYRA MRN: [id number] date: 1990 Sex: F Assigned Patient Location: [facility] Current Patient Location: [facility] Accession/Order Number: [id number] Exam Date: 11/20/2022 12:00 Report Date: 11/20/2022 12:37 At the request of: MELISSA RENDON Procedure: US OB limited EXAM: US OB limited HISTORY: PRESENTATION COMPARISON: None. TECHNIQUE: Transabdominal ultrasound evaluation. FINDINGS: Presentation: Cephalic Heart rate: 126 bpm GA: 37 weeks 3 days SONU: 12/08/2022 US/US OB limited IMPRESSION: 1. Single live intrauterine in cephalic presentation. Electronically authenticated by: ELIZA DIAMOND Date: 11/20/2022 12:37
[2022-11-20] MEDS: ONDANSETRON PF 4 MG/2 ML VIAL IV (18:11)
--- NOTE | 2022-11-20 21:27 | PM.OBPRCVD ---
Procedure Intrapartal events: None Induction method: per pitocin protocol Delivery augmentation: pitocin Delivery monitor: external FHT and external uterine Route of delivery: Episiotomy Description: none Laceration description: none Estimated blood loss (mL): 250 Anesthesia type: Epidural Disposition: floor Delivery date: 11/20/22 Gender: male presentation: vertex Placental delivery description: Spontaneous cord description: 3 Vessels, Nuchal Cord (TIMES 2) and Around Body x1
[2022-11-20] MEDS: OXYBUTYNIN chloride 5 MG TABLET PO (22:24)
[2022-11-20] MEDS: IBUPROFEN 600 MG TABLET PO (23:06)
[2022-11-21 04:08] VITALS: BP 116/79; PULSE 70
[2022-11-21 04:10] VITALS: TEMP 37.1
[2022-11-21] MEDS: IBUPROFEN 600 MG TABLET PO ×4 (04:57→23:28)
[2022-11-21 06:29] LABS: Basophils Percent Auto 0.2 % (0.2-2.0); Eosinophils Absolute Auto 0.1 10^3/uL (0.0-0.7); Hematocrit 25.1 % (36.0-48.0); Hemoglobin 8.5 g/dL (12.0-16.0); Immature Granulocytes Abs Auto 0.11 10^3/uL (0.00-0.03); Immature Granulocytes Pct Auto 0.8 % (0.0-0.5); Lymphocytes Absolute Auto 2.4 10^3/uL (1.2-3.8); Lymphocytes Percent Auto 18.2 % (20.5-60.0); Mean Corpuscular HGB Conc 33.9 g/dL (29.9-35.2); Mean Corpuscular Hemoglobin 32.2 pg (26.7-34.0); Mean Corpuscular Volume 95.1 fL (81.0-99.0); Mean Platelet Volume 9.7 fL (9.5-13.5); Monocytes Absolute Auto 1.1 10^3/uL (0.3-0.8); Monocytes Percent Auto 8.2 % (1.7-12.0); Neutrophils Absolute Auto 9.4 10^3/uL (1.4-6.5); Neutrophils Percent Auto 71.6 % (43.0-75.0); Platelet Count 164 10^3/uL (150-450); Red Blood Count 2.64 10^6/uL (4.20-5.40); Red Cell Distribution Width 13.2 % (11.0-15.0); White Blood Count 13.2 10^3/uL (4.0-11.0)
--- NOTE | 2022-11-21 07:52 | W.PC.ACHO ---
Registration Status: ADM IN Primary Language: Indian Preferred Language: Indian Active Medications Generic Name Dose Route Start Last Admin Trade Name Freq PRN Reason Stop Dose Admin Acetaminophen 650 mg 11/20/22 21:25 Acetaminophen 325 Mg Tablet PO Q6H PRN Mild Pain Al Hydroxide/Mg Hydroxide 2,400 mg 11/20/22 21:25 Magnesium Hydroxide 2,400 Mg/10 Ml Oral.Susp PO Q6H PRN Dyspepsia Benzocaine/Menthol 1 applic 11/20/22 21:25 Benzocaine/Menthol 85 Gram Bottle TOPICAL DIRECTED PRN Pain Diphenhydramine HCl 25 mg 11/20/22 05:02 Diphenhydramine Hcl 50 Mg/Ml (1ml) Vial IV Q6H PRN Itching Docusate Sodium 100 mg 11/21/22 09:00 Docusate Sodium 100 Mg Capsule PO BID TD Ephedrine Sulfate 5 mg 11/20/22 05:02 11/20/22 10:08 Ephedrine Sulfate 50 Mg/Ml Vial IV 5 mg Q5M PRN Administration Blood Pressure - Low Fentanyl Citrate 100 mcg 11/20/22 05:02 11/20/22 10:07 Fentanyl Citrate/Pf 100 Mcg/2 Ml Vial EPIDURAL 100 mcg Q4H PRN Administration Pain Fentanyl Citrate 100 mcg 11/20/22 07:23 11/20/22 10:10 Fentanyl Citrate/Pf 100 Mcg/2 Ml Vial EPIDURAL 100 mcg Q4H PRN Administration Pain Sodium Chloride 1,000 mls @ 125 mls/hr 11/20/22 05:15 11/20/22 21:18 Sodium Chloride 0.9% 1,000 Ml IV Infused .Q8H [facility] Infusion Oxytocin 10 unit/ Sodium 501 mls @ 6.012 mls/hr 11/20/22 05:15 11/20/22 05:59 Chloride IV 2 milliunit/min Q24H TD 6.012 mls/hr Administration 2 MILLIUNIT/MIN Ropivacaine/Sodium Chloride 400 mg in 200 mls @ 6 mls/hr 11/20/22 05:15 11/20/22 10:12 Naropin 0.2% 400 Mg/200 Ml Bag EPIDURAL 10 ml/hr Q24H TD 10 mls/hr Administration Ibuprofen 600 mg 11/20/22 21:25 11/21/22 04:57 Ibuprofen 600 Mg Tablet PO 600 mg Q6H PRN Administration Moderate Pain Lidocaine 5 ml 11/20/22 05:02 Lidocaine Hcl 2% Pf 100 Mg/5 Ml Vial INJ Q1H PRN Labor Pain Nalbuphine HCl 10 mg 11/20/22 05:02 Nalbuphine Hcl 10 Mg/Ml Ampule IV Q3H PRN Pain Naloxone HCl 0.4 mg 11/20/22 21:25 Naloxone Hcl 0.4 Mg/Ml Vial IV ONCE PRN Opiate Reversal Ondansetron HCl 4 mg 11/20/22 05:02 11/20/22 18:11 Ondansetron Pf 4 Mg/2 Ml Vial IV 4 mg Q6H PRN Administration Nausea And Vomiting Ondansetron HCl 4 mg 11/20/22 05:02 Ondansetron 4 Mg Rapdis Tablet SL Q6H PRN Nausea And Vomiting Oxybutynin Chloride 5 mg 11/20/22 22:00 11/20/22 22:24 Oxybutynin Chloride 5 Mg Tablet PO 5 mg DAILY TD Administration Oxytocin 10 unit 11/20/22 21:25 Oxytocin 10 Unit/Ml Vial IV 11/21/22 21:26 ONCE PRN Uterine Bleeding Senna 17.2 mg 11/20/22 20:00 Sennosides 8.6 Mg Tablet PO QHS PRN Constipation Simethicone 80 mg 11/20/22 21:25 Simethicone 80 Mg Tab.Chew PO QID PRN Abdominal Distention Temazepam 15 mg 11/20/22 20:00 Temazepam 15 Mg Capsule PO BEDTIME PRN Sleep Witch Debora/Glycerin 1 each 11/20/22 21:25 Glycerin/Witch Debora 1 Each Jar TOPICAL DIRECTED PRN Pain Diet Category Date Time Status Regular Consistency Diet Diet 11/20/22 Dinner Active Consults Category Date Time Status Consult to Vice President Investor Relations Routine Cons 11/21/22 Ordered Respiratory Lung sounds [Throughout] clear Oxygen Delivery Method Room Air Catheter Date Urinary Catheter Removed 11/20/22
--- NOTE | 2022-11-21 08:12 | PM.OBPN ---
OB - PN: Subj Subjective Patient comments: no complaints [place] status: doing well feeding status: exclusively Exam Constitutional Vital Signs, click to edit/add: Last Vital Signs Temp 98.7 F 11/21/22 04:10 Pulse 70 11/21/22 04:08 Resp 16 11/20/22 14:37 BP 116/79 11/21/22 04:08 O2 Del Method Room Air 11/20/22 23:20 Documenting provider has reviewed patient's vital signs: yes Common normals: no apparent distress General appearance: cooperative HENMT Common normals: normocephalic Lymph Lymphatic: no lymphadenopathy noted Chest Common normals: inspection of chest normal Respiratory Common normals: normal respiratory effort Effort & inspection: able to speak in complete sentences Auscultation: clear to auscultation bilaterally Cardio Common normals: no JVD, regular rate and regular rhythm Rate: regular rate Rhythm: regular rhythm GI Common normals: Normal to inspection, nondistended, normoactive bowel sounds present Auscultation: normoactive bowel sounds Palpation: soft Percussion: normal to percussion Common normals: no CVA tenderness Back & Pelvis Common normals: no CVA tenderness Extremity Common normals: normal to inspection Neuro Sensorium/orientation: awake, alert, oriented to person, oriented to place and oriented to time Psych Psychiatry clinicians, please identify where your Mental Status Exam is documented: Mental Status Exam documented in the separate MSE Attitude: calm Activity/motor behavior: appropriate eye contact Results Labs Labs: Short CBC 11/21/22 Range/Units 06:18 WBC 13.2 H (4.0-11.0) 10^3/uL Hgb 8.5 L (12.0-16.0) g/dL Hct 25.1 L (36.0-48.0) % Plt Count 164 (150-450) 10^3/uL OB - PN: A/P Plan - Vaginal Delivery day: 1 Plan: routine care Time Spent with Patient Time: Total time spent is greater than 50% in coordination of care (as documented) at patient's floor/unit and/or counseling patient: Total time spent with greater than 50% in coordination of care (as documented) at patient's floor/unit and/or counseling patient: less than 15 minutes
[2022-11-21 08:17] VITALS: BP 117/82; PULSE 74
[2022-11-21] MEDS: DOCUSATE SODIUM 100 MG CAPSULE PO ×2 (08:18→21:47)
--- NOTE | 2022-11-21 15:00 | W.PC.ACHO ---
Registration Status: ADM IN Primary Language: Libyan Preferred Language: Libyan Report given to Asmita Warner RN. Care relinquished. Active Medications Generic Name Dose Route Start Last Admin Trade Name Cecelia PRN Reason Stop Dose Admin Acetaminophen 650 mg 11/20/22 21:25 Acetaminophen 325 Mg Tablet PO Q6H PRN Mild Pain Al Hydroxide/Mg Hydroxide 2,400 mg 11/20/22 21:25 Magnesium Hydroxide 2,400 Mg/10 Ml Oral.Susp PO Q6H PRN Dyspepsia Benzocaine/Menthol 1 applic 11/20/22 21:25 Benzocaine/Menthol 85 Gram Bottle TOPICAL DIRECTED PRN Pain Docusate Sodium 100 mg 11/21/22 09:00 11/21/22 08:18 Docusate Sodium 100 Mg Capsule PO 100 mg BID TD Administration Sodium Chloride 1,000 mls @ 125 mls/hr 11/20/22 05:15 11/20/22 21:18 Sodium Chloride 0.9% 1,000 Ml IV Infused .Q8H TD Infusion Oxytocin 10 unit/ Sodium 501 mls @ 6.012 mls/hr 11/20/22 05:15 11/20/22 05:59 Chloride IV 2 milliunit/min Q24H TD 6.012 mls/hr Administration 2 MILLIUNIT/MIN Ropivacaine/Sodium Chloride 400 mg in 200 mls @ 6 mls/hr 11/20/22 05:15 11/20/22 10:12 Naropin 0.2% 400 Mg/200 Ml Bag EPIDURAL 10 ml/hr Q24H TD 10 mls/hr Administration Ibuprofen 600 mg 11/20/22 21:25 11/21/22 11:35 Ibuprofen 600 Mg Tablet PO 600 mg Q6H PRN Administration Moderate Pain Ondansetron HCl 4 mg 11/20/22 05:02 11/20/22 18:11 Ondansetron Pf 4 Mg/2 Ml Vial IV 4 mg Q6H PRN Administration Nausea And Vomiting Ondansetron HCl 4 mg 11/20/22 05:02 Ondansetron 4 Mg Rapdis Tablet SL Q6H PRN Nausea And Vomiting Oxybutynin Chloride 5 mg 11/20/22 22:00 11/20/22 22:24 Oxybutynin Chloride 5 Mg Tablet PO 5 mg DAILY TD Administration Oxytocin 10 unit 11/20/22 21:25 Oxytocin 10 Unit/Ml Vial IV 11/21/22 21:26 ONCE PRN Uterine Bleeding Senna 17.2 mg 11/20/22 20:00 Sennosides 8.6 Mg Tablet PO QHS PRN Constipation Simethicone 80 mg 11/20/22 21:25 Simethicone 80 Mg Tab.Chew PO QID PRN Abdominal Distention Temazepam 15 mg 11/20/22 20:00 Temazepam 15 Mg Capsule PO BEDTIME PRN Sleep Witch Debora/Glycerin 1 each 11/20/22 21:25 Glycerin/Witch Debora 1 Each Jar TOPICAL DIRECTED PRN Pain Diet Category Date Time Status Regular Consistency Diet Diet 11/20/22 Dinner Active Consults Category Date Time Status Consult to Food Preparation Kitchen Aide Routine Cons 11/21/22 Ordered Respiratory Lung sounds [Throughout] clear Lung sounds [Throughout] clear Oxygen Delivery Method Room Air Oxygen Delivery Method Room Air Renal Bladder Pattern Continent Catheter Date Urinary Catheter Removed 11/20/22
--- NOTE | 2022-11-21 16:08 | SWNOTE1 ---
SW was consulted due to positive drug screen for marijuana. Patient lives at home with her mother and father and her 2 children who are 9 & 2. Patient has good support with her family, she has 5 brothers as well who are her support. Pt has everything she needs at home for baby as well. She works at [employer] and plans on going back to work in January. Patient had kidney stones around 25 weeks and was in a lot of pain. Pt did smoke marijuana during and she was positive on admission. Pt stated she was in a lot of pain for kidney stones and she smoke for that. She was prescribed percocet, but did not take it. She does not plan on using marijuana after discharge. Pt is appropriate with baby and bonding with baby. SW did ask about father of baby, who is father of 9 year old. She stated he is just coming to sign certificate, but does not feel he will be involved. Pt did voice she has a lot of other support. SW let her know that SW is mandated reported and has to call CPS. YADY called report in to [facility] CPS. HIPPA form sent to Danay. Cord sent.
--- NOTE | 2022-11-21 16:08 | PC.NURSE ---
LC into room, mom holding and bonding with baby. States has nursed other children 2 years each and feels confident in her ability to nurse this child. Does note difference in infant waking up for feeds. Baby delivered at 37+4 days where other children were 40 weeks. Discussed LPI behaviors and mom verbalizes understanding. Given BF handouts with discussion as well as LPI information. No concerns noted at this time.
[2022-11-21 17:24] VITALS: BP 120/73; PULSE 61
[2022-11-21 17:28] VITALS: BP 120/73; PULSE 61; RESP 16; TEMP 36.8
[2022-11-21] MEDS: ACETAMINOPHEN 325 MG TABLET 650 MG PO (19:43)
[2022-11-21] MEDS: OXYBUTYNIN chloride 5 MG TABLET PO (23:29)
[2022-11-21 23:33] VITALS: BP 109/85; PULSE 73; TEMP 35.8
--- NOTE | 2022-11-22 07:36 | W.PC.ACHO ---
Registration Status: ADM IN Primary Language: Stateless Preferred Language: Stateless Active Medications Generic Name Dose Route Start Last Admin Trade Name Freq PRN Reason Stop Dose Admin Acetaminophen 650 mg 11/20/22 21:25 11/21/22 19:43 Acetaminophen 325 Mg Tablet PO 650 mg Q6H PRN Administration Mild Pain Al Hydroxide/Mg Hydroxide 2,400 mg 11/20/22 21:25 Magnesium Hydroxide 2,400 Mg/10 Ml Oral.Susp PO Q6H PRN Dyspepsia Benzocaine/Menthol 1 applic 11/20/22 21:25 Benzocaine/Menthol 85 Gram Bottle TOPICAL DIRECTED PRN Pain Docusate Sodium 100 mg 11/21/22 09:00 11/21/22 21:47 Docusate Sodium 100 Mg Capsule PO 100 mg BID TD Administration Sodium Chloride 1,000 mls @ 125 mls/hr 11/20/22 05:15 11/20/22 21:18 Sodium Chloride 0.9% 1,000 Ml IV Infused .Q8H TD Infusion Oxytocin 10 unit/ Sodium 501 mls @ 6.012 mls/hr 11/20/22 05:15 11/20/22 05:59 Chloride IV 2 milliunit/min Q24H TD 6.012 mls/hr Administration 2 MILLIUNIT/MIN Ropivacaine/Sodium Chloride 400 mg in 200 mls @ 6 mls/hr 11/20/22 05:15 11/20/22 10:12 Naropin 0.2% 400 Mg/200 Ml Bag EPIDURAL 10 ml/hr Q24H TD 10 mls/hr Administration Ibuprofen 600 mg 11/20/22 21:25 11/21/22 23:28 Ibuprofen 600 Mg Tablet PO 600 mg Q6H PRN Administration Moderate Pain Ondansetron HCl 4 mg 11/20/22 05:02 11/20/22 18:11 Ondansetron Pf 4 Mg/2 Ml Vial IV 4 mg Q6H PRN Administration Nausea And Vomiting Ondansetron HCl 4 mg 11/20/22 05:02 Ondansetron 4 Mg Rapdis Tablet SL Q6H PRN Nausea And Vomiting Oxybutynin Chloride 5 mg 11/21/22 23:30 11/21/22 23:29 Oxybutynin Chloride 5 Mg Tablet PO 5 mg HS TD Administration Senna 17.2 mg 11/20/22 20:00 Sennosides 8.6 Mg Tablet PO QHS PRN Constipation Simethicone 80 mg 11/20/22 21:25 Simethicone 80 Mg Tab.Chew PO QID PRN Abdominal Distention Temazepam 15 mg 11/20/22 20:00 Temazepam 15 Mg Capsule PO BEDTIME PRN Sleep Witch Debora/Glycerin 1 each 11/20/22 21:25 Glycerin/Witch Debora 1 Each Jar TOPICAL DIRECTED PRN Pain Respiratory Lung sounds [Throughout] clear Lung sounds [Throughout] clear Lung sounds [Throughout] clear Oxygen Delivery Method Room Air Renal Bladder Pattern Continent
[2022-11-22 07:39] VITALS: BP 91/54; PULSE 54
[2022-11-22] MEDS: IBUPROFEN 600 MG TABLET PO ×2 (07:39→14:13)
[2022-11-22 07:45] VITALS: RESP 16
--- NOTE | 2022-11-22 08:19 | PM.OBPN ---
OB - PN: Subj Subjective Patient comments: no complaints [place] status: doing well Exam Constitutional Vital Signs, click to edit/add: Last Vital Signs Temp 96.4 F L 11/21/22 23:33 Pulse 54 L 11/22/22 07:39 Resp 16 11/22/22 07:45 BP 91/54 11/22/22 07:39 O2 Del Method Room Air 11/22/22 07:45 Common normals: no apparent distress General appearance: cooperative Neck & C-Spine Common normals: full ROM Lymph Lymphatic: no lymphadenopathy noted Respiratory Common normals: normal respiratory effort Auscultation: clear to auscultation bilaterally Cardio Common normals: no JVD, regular rate, regular rhythm and no murmurs Rate: regular rate Rhythm: regular rhythm GI Common normals: Normal to inspection, nondistended, normoactive bowel sounds present Common normals: no CVA tenderness Back & Pelvis Common normals: no CVA tenderness Extremity Common normals: normal to inspection Neuro Common normals: oriented x3 Sensorium/orientation: awake, alert, oriented to person, oriented to place and oriented to time Speech: speech normal Psych Attitude: calm OB - PN: A/P Plan - Vaginal Delivery day: 2 Plan: discharge home Time Spent with Patient Time: Total time spent is greater than 50% in coordination of care (as documented) at patient's floor/unit and/or counseling patient: Total time spent with greater than 50% in coordination of care (as documented) at patient's floor/unit and/or counseling patient: less than 15 minutes
--- NOTE | 2022-11-22 14:28 | PC.NURSE ---
1415 pt requested ice pack and Motrin for back pain and uterine cramping. Given ice pack for epidural site on back, bruising noted and medicated with Motrin 600mg as requested. No further complaints offered.
[2022-11-23 11:09] LABS: Cannabinoid Positive (.); Carboxy THC Conf, MS, UR 708 ng/mL (Cutoff=10)
== END 2022-11-22 17:25 | disposition home or self-care (01) | DRG 560 ==
PROVIDERS: Admitting Provider Obstetrics & Gynecology; PCP Family Medicine; Visit Provider Obstetrics & Gynecology
DX: O99.892 Other specified diseases and conditions complicating childbirth (principal); O69.81X0 Labor and delivery complicated by cord around neck, without compression, not applicable or unspecified; O69.82X0 Labor and delivery complicated by other cord entanglement, without compression, not applicable or unspecified; Z3A.37 37 weeks gestation of pregnancy; Z37.0 Single live birth; N20.0 Calculus of kidney; M54.9 Dorsalgia, unspecified; M41.9 Scoliosis, unspecified; M53.9 Dorsopathy, unspecified; O99.62 Diseases of the digestive system complicating childbirth; K21.9 Gastro-esophageal reflux disease without esophagitis
CPT/HCPCS: 36415; 59050; 59410; 76815; 80307; 80349; 85025; 85027; 86850; 86900; 86901; 96365; 96366; 96375; 96376

== ENCOUNTER 2022-12-01 10:44 | Emergency (ER) | payer OTHER, SELFPAY ==
[2022-12-01 10:47] VITALS: BP 135/70; PULSE 74; RESP 18; TEMP 36.8; O2SAT 99; BMI 36.6
--- NOTE | 2022-12-01 11:04 | ED_ITS ---
HPI - Female Genitourinary General Chief complaint: Urogenital-Female Stated complaint: FLANK PAIN Time Seen by Provider: 12/01/22 11:04 Source: patient Mode of arrival: walk-in Limitations: no limitations History of Present Illness HPI Narrative: pt presents to the emergency department complaining of right flank pain. Patient states pain started in her right flank this morning radiating to her right groin. Patient states this feels like when she had a kidney stone. She states she had a left ureteral stent placed 10/21/[address] Falcon. She then had a spontaneous vaginal delivery 11/21/[address] Hernandez. She states that she was doing well taking Motrin at home for pain however this pain came on suddenly this morning and is causing her to be nauseated. She states she has not been vomiting. Pain is sharp, stabbing. She denies any hematuria, dysuria. She states she still has some vaginal bleeding denies any discharge or foul odor discharge. Patient is breast-feeding. She denies any complications or other than the kidney stone during the . Denies any fever, chills, or cough. She denies any diarrhea, constipation. She denies any urinary symptoms. She denies any headache. Related Data Home Medications Medication Instructions Recorded Confirmed vits [id number] fum 1 tab PO DAILY 11/16/22 12/01/22 27 mg iron-folic acid 800 mcg tablet ( Vitamin) oxybutynin chloride 5 mg tablet 5 mg PO .QD 11/20/22 12/01/22 Previous Rx's Medication Instructions Recorded acetaminophen 325 mg tablet 650 mg PO Q6H PRN Mild Pain #30 11/22/22 tabs benzocaine 20 %-menthol 0.5 % 1 spray topical DIRECTED PRN 11/22/22 topical aerosol (Dermoplast (with Pain 14 days #56 grams menthol)) glycerin-witch marc 12.5 %-50 % 1 pad topical DIRECTED PRN Pain 11/22/22 topical pads (A.E.R. Witch Marc) 14 days #40 ea ibuprofen 800 mg tablet 800 mg PO Q8H PRN Moderate Pain 30 11/22/22 days #60 tabs cephalexin 500 mg capsule 500 mg PO BID 7 days #14 caps 12/01/22 hydrocodone 5 mg-acetaminophen 325 1 tab PO Q6H PRN pain 5 days #20 12/01/22 mg tablet tabs ondansetron HCl 4 mg tablet 4 mg PO DAILY PRN nausea and 12/01/22 vomiting 4 days #10 tabs Allergies Allergy/AdvReac Type Severity Reaction Status Date / Time Latex, Natural Rubber Allergy Unknown Verified 12/01/22 10:52 Review of Systems ROS Status of ROS 10 or more systems reviewed and unremarkable except as noted in history and below PFSH PFS Medical History (Updated 12/01/22 @ 13:07 by Dhara Gusman MD) (2019) Surgical History (Updated 11/16/22 @ 10:52 by Bina Barreto) (~10/2022) Family History (Updated 11/16/22 @ 10:32 by Bina Barreto) Other Family history of Alzheimer's disease Family history of diabetes mellitus Family history of heart disease Family history of hypertension Family history of stroke Social History (Updated 11/16/22 @ 10:24 by Bina Barreto) Within the past year, how often did you have a drink containing alcohol: never Within the past year, how often did you have six or more drinks on one occasion: never Score interpretation: A score less than 3 is consistent with normal alcohol consumption. Smoking status: Former smoker Nicotine containing products detail: CANNABIS Non-prescribed substance use: cannabis (any form) Non-prescribed substance use details: SMOKES 3X A DAY FOR 15 YEARS Previous occupational history: [employer] Highest level of school completed/degree received: high school graduate Exam Narrative Exam Narrative: Nurses notes and vital signs reviewed and patient is not hypoxic. General: Nontoxic, Crying from the pain, no apparent distress. Skin: Warm, dry, no pallor noted. No Rash Head: Normocephalic, atraumatic. Neck: Supple, non-tender. Eye: Pupils are equal, round and EOMI. No scleral icterus. Ears, Nose, Mouth, and Throat: TM clear, no posterior oropharynx erythema or nasal mucosal hypertrophy, uvula is mid-line Oral mucosa is moist Cardiovascular: Regular Rate and Rhythm without murmur, gallop or rub. Respiratory: No accessory muscle use or respiratory distress. Lungs are clear to auscultation, no wheezing, rales or rhonchi Chest Wall: no tenderness Back: No midline thoracic or lumbar vertebral tenderness. No CVA tenderness Musculoskeletal: normal ROM, no calf or popliteal tenderness, no lower extremity edema/swelling GI: Abdomen is soft, non-distended. Normal bowel sounds. No masses appreciated. No tenderness to palpation. No rebound, guarding, or rigidity noted. Neurological: A&O x4. No cranial nerve dysfunction observed. No truncal ataxia. Moves all extremities. Sensation intact. Psychiatric: Cooperative and interactive. Normal mood and affect. Constitutional Vital Signs, click to edit/add: Last Vital Signs Temp 98.2 F 12/01/22 10:47 Pulse 54 L 12/01/22 11:55 Resp 18 12/01/22 11:55 BP 108/73 12/01/22 11:55 Pulse Ox 95 12/01/22 11:55 O2 Del Method Room Air 12/01/22 10:47 Course Vital Signs Vital signs: Vital Signs Temperature 98.2 F 12/01/22 10:47 Pulse Rate 74 12/01/22 10:47 Respiratory Rate 18 12/01/22 10:47 Blood Pressure 135/70 12/01/22 10:47 Pulse Oximetry 99 12/01/22 10:47 Oxygen Delivery Method Room Air 12/01/22 10:47 Temperature 98.2 F 12/01/22 10:47 Pulse Rate 54 L 12/01/22 11:55 Respiratory Rate 18 12/01/22 11:55 Blood Pressure 108/73 12/01/22 11:55 Pulse Oximetry 95 12/01/22 11:55 Oxygen Delivery Method Room Air 12/01/22 10:47 MDM - Female Genitourinary MDM Narrative Medical decision making narrative: IV established, given 1 L of normal saline. She was given 4 mg of morphine and Zofran. Discussed with the patient risks and benefits of narcotics while breast- feeding. She understands and is agreeable to having the medication. Studies were done, urinalysis shows moderate leucocytes, pt will be started on keflex.Ct scan abdomen and pelvis showed a 5 mm right UVJ obstructing stone. Patient's BUN/creatinine are normal. She has a left ureteral stent. Patient has follow-up appointment with urology next week. Patient is tolerating by mouth. Pain is well controlled. Patient is nontoxic. Discussed strainer, increase fluids, and [place], Keflex, and Zofran. She will try to pass this stone as an outpatient. and has fu with urology next week. She will return to emergency department if she develops any fever, worsening pain, any of the symptoms worsened, she cannot tolerate by mouth, or she has any problems or concerns. Differential Diagnosis Differential diagnosis: Likely urinary tract infection Lab Data Attestation: I reviewed the patient's lab results. Labs: Lab Results 12/01/22 12/01/22 Range/Units 10:55 11:05 WBC 6.8 (4.0-11.0) 10^3/uL RBC 3.14 L (4.20-5.40) 10^6/uL Hgb 9.9 L (12.0-16.0) g/dL Hct 30.3 L (36.0-48.0) % MCV 96.5 (81.0-99.0) fL MCH 31.5 (26.7-34.0) pg MCHC 32.7 (29.9-35.2) g/dL RDW 13.2 (11.0-15.0) % Plt Count 346 (150-450) 10^3/uL MPV 9.2 L (9.5-13.5) fL Neut % (Auto) 56.9 (43.0-75.0) % Lymph % (Auto) 34.3 (20.5-60.0) % [place] % (Auto) 6.1 (1.7-12.0) % Eos % (Auto) 1.9 (0.9-7.0) % Baso % (Auto) 0.4 (0.2-2.0) % Neut # (Auto) 3.8 (1.4-6.5) 10^3/uL Lymph # (Auto) 2.3 (1.2-3.8) 10^3/uL [place] # (Auto) 0.4 (0.3-0.8) 10^3/uL Eos # (Auto) 0.1 (0.0-0.7) 10^3/uL Baso # (Auto) 0.0 (0.0-0.1) 10^3/uL Abs Immat Gran (auto) 0.03 (0.00-0.03) 10^3/uL Imm/Tot Granulo (auto) 0.4 (0.0-0.5) % Sodium 139 (136-145) mmol/L Potassium 4.8 (3.5-5.1) mmol/L Chloride 109 H (98-107) mmol/L Carbon Dioxide 22.4 (21.0-32.0) mmol/L Anion Gap 12.4 BUN 20.0 H (7.0-18.0) mg/dL Creatinine 0.91 (0.55-1.02) mg/dL Est GFR ( Amer) >60 (>=60) Est GFR (Non-Af Amer) >60 (>=60) BUN/Creatinine Ratio 22.0 Glucose 86 (74-106) mg/dL Calcium 8.7 (8.5-10.1) mg/dL Total Bilirubin 0.2 (0.2-1.0) mg/dL AST 19 (15-37) U/L ALT 24 (14-59) U/L Alkaline Phosphatase 53 (46-116) U/L Total Protein 6.7 (6.4-8.2) g/dL Albumin 2.9 L (3.4-5.0) g/dL Globulin 3.8 g/dL Albumin/Globulin Ratio 0.8 Urine Color Lt. yellow (YELLOW) Urine Clarity Clear (CLEAR) Urine pH 6.0 (5.0-9.0) Ur Specific [place] 1.015 (1.005-1.025) Urine Protein 100 A (NEG/TRACE) mg/dL Urine Glucose (UA) Negative (NEGATIVE) mg/dL Urine Ketones Negative (NEGATIVE) mg/dL Urine Occult Blood Large A (NEGATIVE) Urine Nitrite Negative (NEGATIVE) Urine Bilirubin Negative (NEGATIVE) Urine Urobilinogen 0.2 (0.2-1.0) EU/dL Ur Leukocyte Esterase Large A (NEGATIVE) Urine RBC 20-50 A (0-2) #/HPF Urine WBC 20-50 A (NONE SEEN) #/HPF Ur Squamous Epith Cells Few A (NONE/RARE) #/LPF Urine Crystals None seen (None Seen) #/HPF Urine Bacteria Small A (NONE SEEN) #/HPF Urine Casts None seen (NONE SEEN) #/LPF Urine Mucus Trace A (NONE SEEN) Ur Culture Indicated? Yes Discharge Plan Discharge Chief Complaint: Urogenital-Female Clinical Impression: Urinary tract infection, Right distal ureteral calculus Patient Disposition: Home, Self-Care Time of Disposition Decision: 13:03 Condition: Good Mode of Transportation: Private Vehicle Prescriptions / Home Meds: New cephalexin 500 mg capsule 500 mg PO BID 7 Days Qty: 14 0RF hydrocodone-acetaminophen 5-325 mg tablet 1 tab PO Q6H PRN (Reason: pain) 5 Days Qty: 20 0RF ondansetron HCl 4 mg tablet 4 mg PO DAILY PRN (Reason: nausea and vomiting) 4 Days Qty: 10 0RF No Action Vitamin 27 mg iron- 800 mcg tablet 1 tab PO DAILY oxybutynin chloride 5 mg tablet 5 mg PO .QD acetaminophen 325 mg Tablet 650 mg PO Q6H PRN (Reason: Mild Pain) Qty: 30 0RF Dermoplast (with menthol) 20-0.5 % Aerosol 1 spray topical DIRECTED PRN (Reason: Pain) 14 Days Qty: 56 0RF A.E.R. Witch Marc 12.5-50 % Pads, Medicated 1 pad topical DIRECTED PRN (Reason: Pain) 14 Days Qty: 40 0RF ibuprofen 800 mg tablet 800 mg PO Q8H PRN (Reason: Moderate Pain) 30 Days Qty: 60 0RF Instructions: Urinary Tract Infection in Women (ED), Ureteral Stones (ED) Stand Alone Forms: Portal Instructions Referrals: VICTORIANO RINCON [Primary Care Provider] - 1 week Freddy Sandoval MD [Physician] - 1 week
[2022-12-01 11:15] LABS: Bilirubin Urine NEGATIVE (NEGATIVE); Blood Urine LARGE (NEGATIVE); Clarity Urine CLEAR (CLEAR); Color Urine LT. YELLOW (YELLOW); Glucose Urine UA NEGATIVE (NEGATIVE); Ketones Urine NEGATIVE (NEGATIVE); Leukocyte Esterase Urine LARGE (NEGATIVE); Nitrite Urine NEGATIVE (NEGATIVE); Protein Urine 100 mg/dL (NEG/TRACE); Specific Gravity Urine 1.015 (1.005-1.025); Urine Microscopic Indicated YES; Urobilinogen Urine 0.2 EU/dL (0.2-1.0)
--- NOTE | 2022-12-01 11:22 | CT_ITS ---
[address] [address] Patient Name: HERBERT VIEYRA MRN: [id number] date: 1990 Sex: F Assigned Patient Location: ER Current Patient Location: Accession/Order Number: [id number] Exam Date: 12/01/2022 11:40 Report Date: 12/01/2022 12:04 At the request of: JORDON BRENNAN Procedure: CT abdomen pelvis wo con EXAM: CT abdomen pelvis wo con; [id number] REASON FOR EXAM: flank pain TECHNIQUE: Helical CT images of the abdomen and pelvis were obtained without IV contrast. Multiplanar reformats were generated at the scanner. Dose reduction technique used: Automated exposure control and/or adjustment of the mA and/or kV according to patient size and/or use of iterative reconstruction technique. COMPARISON: None. FINDINGS: Note: Compared with a contrast-enhanced CT exam, noncontrast images are relatively insensitive for detection of solid organ and vascular abnormalities. Visualized Chest: No pleural effusion or any significant pulmonary findings. Abdomen: Liver: Within normal limits. Gallbladder: No calcified gallstones. No acute inflammatory changes. Bile Ducts: No significant biliary ductal dilatation. Pancreas: No ductal dilatation or inflammatory changes. Spleen: No splenomegaly. Adrenals: No nodules. Kidneys: -Obstructing stone at the right distal ureter near the ureterovesical junction measuring 5 x 4 mm (series 3 image 113). This results in mild right-sided hydroureter and hydronephrosis. -Nonobstructing 3 mm stone in the lower pole of the right kidney. -Left-sided double-J ureteral stent appears appropriately positioned. -Collection of amorphous calcification in the lower pole of the left kidney measuring in total approximately 14 x 17 mm (series 3 image 48). Vascular: No aortic aneurysm. Lymph Nodes: No adenopathy. Abdominal Wall: No hernia or mass. Pelvis: No mass or adenopathy. Bowel/Peritoneal Cavity/Mesentery: -No bowel obstruction or significant ileus. -No acute inflammatory changes. -No free air or free fluid. Musculoskeletal: No acute fracture or suspicious osseous lesion. CT/CT abdomen pelvis wo con IMPRESSION: 1. Obstructing 5 x 4 mm stone in the most distal right ureter near the right ureterovesical junction resulting in mild right-sided hydronephrosis. 2. The left-sided double-J ureteral stent appears appropriately positioned. 3. Nonobstructing 3 mm stone in the right kidney and collection of amorphous calcification in the lower pole of the left kidney measuring up to 17 mm. Electronically authenticated by: BORIS KAY Date: 12/01/2022 12:04
[2022-12-01 11:26] LABS: Bacteria Urine SMALL #/HPF (NONE SEEN); Cast Seen? NONE SEEN #/LPF (NONE SEEN); Crystals Seen? None Seen #/HPF (None Seen); Mucus Urine TRACE (NONE SEEN); RBC Urine 20-50 #/HPF (0-2); Squamous Epithelial Cell Urine FEW #/LPF (NONE/RARE); Urine Culture Indicated YES; WBC Urine 20-50 #/HPF (NONE SEEN)
[2022-12-01] MEDS: ONDANSETRON PF 4 MG/2 ML VIAL IV (11:36)
[2022-12-01] MEDS: 0.9 % SODIUM CHLORIDE 1,000 ML 1000 ML IV (11:36)
[2022-12-01] MEDS: MORPHINE SULFATE 4 MG/ML VIAL IV (11:36)
[2022-12-01 11:44] LABS: Basophils Percent Auto 0.4 % (0.2-2.0); Eosinophils Absolute Auto 0.1 10^3/uL (0.0-0.7); Eosinophils Percent Auto 1.9 % (0.9-7.0); Hematocrit 30.3 % (36.0-48.0); Hemoglobin 9.9 g/dL (12.0-16.0); Immature Granulocytes Abs Auto 0.03 10^3/uL (0.00-0.03); Immature Granulocytes Pct Auto 0.4 % (0.0-0.5); Lymphocytes Absolute Auto 2.3 10^3/uL (1.2-3.8); Lymphocytes Percent Auto 34.3 % (20.5-60.0); Mean Corpuscular HGB Conc 32.7 g/dL (29.9-35.2); Mean Corpuscular Hemoglobin 31.5 pg (26.7-34.0); Mean Corpuscular Volume 96.5 fL (81.0-99.0); Mean Platelet Volume 9.2 fL (9.5-13.5); Monocytes Absolute Auto 0.4 10^3/uL (0.3-0.8); Monocytes Percent Auto 6.1 % (1.7-12.0); Neutrophils Absolute Auto 3.8 10^3/uL (1.4-6.5); Neutrophils Percent Auto 56.9 % (43.0-75.0); Platelet Count 346 10^3/uL (150-450); Red Blood Count 3.14 10^6/uL (4.20-5.40); Red Cell Distribution Width 13.2 % (11.0-15.0); White Blood Count 6.8 10^3/uL (4.0-11.0)
[2022-12-01 11:45] LABS: Alanine Aminotransferase 24 U/L (14-59); Albumin Globulin Ratio 0.8; Albumin Level 2.9 g/dL (3.4-5.0); Alkaline Phosphatase 53 U/L (46-116); Anion Gap 12.4; Aspartate Amino Transferase 19 U/L (15-37); Bilirubin Total 0.2 mg/dL (0.2-1.0); Calcium 8.7 mg/dL (8.5-10.1); Carbon Dioxide 22.4 mmol/L (21.0-32.0); Chloride 109 mmol/L (98-107); Estimated GFR (African America >60 (>=60); Estimated GFR (Non-African Ame >60 (>=60); Globulin 3.8 g/dL; Glucose 86 mg/dL (74-106); Potassium 4.8 mmol/L (3.5-5.1); Sodium 139 mmol/L (136-145); Total Protein 6.7 g/dL (6.4-8.2)
[2022-12-01 11:55] VITALS: BP 108/73; PULSE 54; RESP 18; O2SAT 95
[2022-12-01 13:34] VITALS: BP 116/78; PULSE 53; RESP 16; O2SAT 98
== END 2022-12-01 13:37 | disposition home or self-care (01) ==
PROVIDERS: Emergency Provider Emergency Medicine; PCP Family Medicine
DX: O90.89 Other complications of the puerperium, not elsewhere classified (principal); N20.1 Calculus of ureter; O86.20 Urinary tract infection following delivery, unspecified; N39.0 Urinary tract infection, site not specified; Z87.891 Personal history of nicotine dependence; Z87.442 Personal history of urinary calculi
CPT/HCPCS: 36415; 74176; 80053; 81001; 85025; 87086; 96374; 96375; 99285

== ENCOUNTER 2022-12-06 13:08 | Day surgery (SDC) | payer OTHER, SELFPAY ==
[2022-11-16 10:25] VITALS: PULSE 79; RESP 16; TEMP 36.6; O2SAT 98; BMI 39.2
[2022-12-06] VITALS (11 sets, daily range): BP systolic 111–156; BP diastolic 73–102; PULSE 52–88; RESP 14–19; TEMP 36.1–36.3; O2SAT 94–99; BMI 36.9
--- NOTE | 2022-12-06 13:00 | XR_ITS ---
The [address] [address] Patient Name: HERBERT VIEYRA MRN: [id number] date: 1990 Sex: F Assigned Patient Location: [facility] Current Patient Location: [facility] Accession/Order Number: [id number] Exam Date: 12/06/2022 13:35 Report Date: 12/06/2022 15:15 At the request of: FEROZ BECKER Procedure: XR chest 1V EXAM: XR chest 1V HISTORY: smoker COMPARISON: None. TECHNIQUE: AP view of the chest. FINDINGS: The cardiomediastinal silhouette is normal. The lungs are clear. There is no pneumothorax. No pleural effusion is noted. The osseous structures are intact. XR/XR chest 1V IMPRESSION: No acute cardiopulmonary process. Electronically authenticated by: CHUNG PAGE Date: 12/06/2022 15:15
[2022-12-06 13:32] LABS: HCG Qualitative NEGATIVE (NEGATIVE)
[2022-12-06] MEDS: LACTATED RINGER'S SOLUTION 1,000 ML 50 ML IV (14:08)
--- NOTE | 2022-12-06 14:26 | P.URON_ITS ---
Urology Surgery Operative Note Operative Note Procedure Date: 12/06/22 Time Out Performed: yes Pre-op Diagnosis: 1. Left kidney stone 2. Indwelling left ureteral stent Post-op Diagnosis: other (1. Left kidney stone, 2. Encrusted left ureteral stent ) Procedures performed: 1. Cystoscopy, left retrograde pyelogram, left ureteroscopy with laser lithotripsy of encrusted stent 2. Left renoscopy with stone extraction, left stent exchange Anesthesia: GETA (LMA, Dr. Francesco Last) Primary Surgeon: Diane Falcon Complications: none Estimated blood loss (mL): 0 Findings: Encrusted proximal and distal curls of indwelling left ureteral stent requiring laser lithotripsy to remove stent, adding complexity and prolonging case. Irritated proximal ureter and renal pelvis. Left mid and lower pole stone fragments removed. Small fragments of debris unable to be basket extracted. No hydronephrosis or extravasation of contrast. Specimens: none Drains: 4.8Fr x 22-30 cm JJ left ureteral stent Incision: none Indications for Procedures: 32 year old female diagnosed with left kidney and ureteral stones during s/p left ureteroscopy, laser lithotripsy/stone extraction, stent placement on 10/21/2022. Unable to complete treatment of additional kidney stones during index urgent surgery while for ureteral stone treatment. A 5-6mm stone remains in the left kidney per renal US. She presents today for definitive stone treatment as above now that she has delivered her baby. Risks were discussed including but not limited to bleeding, pain, infection, damage to surrounding structures, inability to treat the stone/place a stent, and need for additional procedures. The patient understands the stent is not permanent and needs to be removed or exchanged within 3 months to prevent encrustation, infection, invasive procedures and/or permanent renal damage. Detailed description of Procedure: After informed consent was obtained, the patient was brought to the operating room and transferred onto the operating table in supine position. Sequential compression devices were placed on bilateral lower extremities. The patient received the appropriate dose of preoperative IV antibiotics and general anesthesia LMA was induced. They were positioned in modified dorsolithotomy with the appropriate pressure points padded, prepped, and draped in the usual sterile fashion for this procedure. An operative safety timeout was performed confirming the patient's identity, laterality and procedure, and all present agreed to proceed. I began by inserting a 22 Yoruba rigid cystoscope with 30 degree lens into the patient's urethra and bladder without difficulty. There were no bladder tumors, lesions or stones. Bilateral ureteral orifices were orthotopic and patent. I turned my attention to the left ureteral orifice and noted an encrusted curl of the left indwelling stent. Flexible graspers were used to break off the calcifications to allow uncurling of the stent. The indwelling stent was brought to the meatus with graspers. A Sensor wire was inserted into the stent, req uiring manipulation, ultimately unable to advance through the proximal curl. The wire was then inserted alongside the stent, meeting resistance at the renal pelvis. A semirigid ureteroscope was inserted alongside the wire and indwelling stent until the encrusted proximal aspect was noted at the UPJ. A 275 ?m holmium laser fiber was used to break off the encrusted stent calcifications and dust the fragments into tiny pieces. After circumferentially treating the stent, it was able to be removed intact without difficulty. Next the ureter was cleared of any calcifications/debris using a 2.4 tipless nitinol basket. After the ureter was cleared, an 11/13Fr x 36cm ureteral access sheath was inserted over the wire to gain access to the renal pelvis. A full renoscopy was performed removing any retrievable debris and stones. After the kidney was cleared, contrast was injected to assist with mapping for the renoscopy, confirming no significant residual stones or fragments remained. The wire was reinserted and a pull down ureteroscopy was performed confirming no stones remained in the ureter. The wire was backloaded through the cystoscope and 4.8Fr x 22-30cm JJ variable length ureteral stent was advanced over the wire, noting adequate curl in the renal pelvis and bladder on fluoroscopic and direct visualization. The bladder was irrigated until clear and inspected one final time to ensure adequate position of stent and no undue trauma to the bladder was done. The cystoscope was removed. The patient tolerated the procedure well without complication. The patient was awakened from anesthesia and sent to PACU in stable condition. Plan: Discharge home with stent pain medications. Follow up in 2 weeks for in- office cystoscopy, left ureteral stent removal. Other Provider present: No Post Operative care instructions: See discharge instructions Attending Doc Confirm Attending Attestation: Yes
[2022-12-06] MEDS: CEFAZOLIN SODIUM/DEXTROSE,ISO 2 GM/50 ML PIGGYBACK IV (14:28)
[2022-12-06] MEDS: LACTATED RINGER'S SOLUTION 1,000 ML 1000 ML IV (15:29)
[2022-12-06] MEDS: IOHEXOL 240 MG/ML - 50 ML VIAL INJ (16:00)
== END 2022-12-06 17:30 | disposition home or self-care (01) ==
PROVIDERS: Anesthesiology; PCP Family Medicine; Visit Provider Urology
PROC: (CPT 918; principal; 2022-12-06 14:00)
DX: N20.0 Calculus of kidney (principal); Z87.891 Personal history of nicotine dependence; R31.0 Gross hematuria; R35.1 Nocturia; R33.9 Retention of urine, unspecified; N39.43 Post-void dribbling
CPT/HCPCS: 52356; 36415; 71045; 74420; 84703; C1874; J2704; Q9966

== ENCOUNTER 2023-01-24 08:55 | Outpatient (OUT) | payer OTHER, SELFPAY ==
--- NOTE | 2023-01-24 09:00 | US_ITS ---
[address] [address] Patient Name: HERBERT VIEYRA MRN: [id number] date: 1990 Sex: F Assigned Patient Location: Current Patient Location: Accession/Order Number: [id number] Exam Date: 01/24/2023 09:01 Report Date: 01/24/2023 09:27 At the request of: TIM PANDYA Procedure: US renal BI EXAMINATION: US renal BI HISTORY: Left Hydronephrosis N13.30, Ureteral Stone With Hydronephros COMPARISON: 10/27/2022 TECHNIQUE: Ultrasound examination was performed of the bladder. FINDINGS: Right Kidney: Normal in size, contour and echotexture. No solid cortical mass, hydronephrosis or obstructing nephrolithiasis Height: 3.9 cm Length: 11.6 cm Width: 5.4 cm Left Kidney: Normal in size, contour and echotexture. No solid cortical mass or obstructing nephrolithiasis. Mild pelviectasis Height: 4.6 cm Length: 12.7 cm Width: 4.8 cm The urinary bladder measures 9.5 x 9.7 x 6.1 cm with volume of 389 mL US/US renal BI IMPRESSION: Mild left pelviectasis Electronically authenticated by: GERSON MELLO Date: 01/24/2023 09:27
== END 2023-01-24 08:56 | disposition home or self-care (01) ==
LOC: US 08:55
PROVIDERS: PCP Family Medicine; Visit Provider Urology
DX: N13.2 Hydronephrosis with renal and ureteral calculous obstruction (principal)
CPT/HCPCS: 76775

== ENCOUNTER 2023-02-07 21:44 | Outpatient (REF) | payer OTHER, SELFPAY ==
[2023-02-13 09:08] LABS: Age Gdln ACOG Testing Note (.); HPV Aptima Negative (Negative); IGP, Aptima HPV, rfx 16/18,45 Note (.)
== END 2023-02-07 21:45 | disposition home or self-care (01) ==
LOC: LAB 21:44
PROVIDERS: PCP Family Medicine; Visit Provider Obstetrics & Gynecology
DX: Z01.419 Encounter for gynecological examination (general) (routine) without abnormal findings (principal)
CPT/HCPCS: 87624; G0145

== ENCOUNTER 2023-08-28 16:04 | Outpatient (OUT) | payer OTHER, SELFPAY ==
--- NOTE | 2023-08-28 16:07 | US_ITS ---
The [address] [address] Patient Name: HERBERT VIEYRA MRN: [id number] date: 1990 Sex: F Assigned Patient Location: Current Patient Location: Accession/Order Number: [id number] Exam Date: 08/28/2023 16:10 Report Date: 08/29/2023 07:43 At the request of: MELISSA RENDON Procedure: US pelvis transvaginal EXAMINATION: US pelvis transvaginal HISTORY: pelvic cramping R10.2 COMPARISON: No relevant comparison available. FINDINGS: Uterus is normal in size, contour and myometrial echotexture measuring 8.2 x 3.2 x 4.5 cm. No focal myometrial mass The endometrium measures 5.9 mm, normal. Linear hyperechogenicity within the endometrial canal, normally positioned IUD The right ovary is normal measuring 3.7 x 1.7 x 2.6 cm. Normal color and Doppler flow. Normal subcentimeter follicles. The left ovary is normal measuring 2.2 x 1.9 x 1.7 cm. Normal color Doppler flow. Normal subcentimeter follicles No ascites US/US pelvis transvaginal IMPRESSION: Normal exam Electronically authenticated by: GERSON MELLO Date: 08/29/2023 07:43
== END 2023-08-28 16:05 | disposition home or self-care (01) ==
LOC: US 16:04
PROVIDERS: PCP Family Medicine; Visit Provider Obstetrics & Gynecology
DX: R10.2 Pelvic and perineal pain (principal)
CPT/HCPCS: 76830

== ENCOUNTER 2024-03-10 12:21 | Emergency (ER) | payer OTHER, SELFPAY ==
[2024-03-10 12:33] VITALS: BP 124/80; PULSE 74; TEMP 37.1; O2SAT 98; BMI 36.8
--- NOTE | 2024-03-10 12:50 | US_ITS ---
The [address] [address] Patient Name: HERBERT VIEYRA MRN: [id number] date: 1990 Sex: F Assigned Patient Location: ER Current Patient Location: ER Accession/Order Number: [id number] Exam Date: 03/10/2024 13:40 Report Date: 03/10/2024 14:21 At the request of: LINDSAY STEWART Procedure: US venous doppler LE LT CLINICAL DATA: Leg swelling. Pain. PROCEDURE: Left lower extremity venous duplex ultrasound TECHNIQUE: Peguero-scale, color flow, and waveform spectral analysis was performed of the left lower extremity. FINDINGS: The left common femoral, profunda femoral, femoral, and popliteal veins were compressible. The saphenous vein was compressible. No venous thrombosis was seen. The veins fill with color Doppler. Augmentation was normal. US/US venous doppler LE LT IMPRESSION: 1. No acute lower extremity deep venous thrombosis. 2. No superficial venous thrombosis. Electronically authenticated by: Mary COFFEY Date: 03/10/2024 14:21
--- NOTE | 2024-03-10 12:50 | XR_ITS ---
The [address] [address] Patient Name: HERBERT VIEYRA MRN: [id number] date: 1990 Sex: F Assigned Patient Location: ER Current Patient Location: ER Accession/Order Number: [id number] Exam Date: 03/10/2024 12:55 Report Date: 03/10/2024 13:54 At the request of: LINDSAY STEWART Procedure: XR foot LT min 3V PROCEDURE: XR foot LT min 3V HISTORY: Atraumatic pain, swelling COMPARISON: None. FINDINGS: BONES:No fracture, acute abnormality, or significant arthropathy. SOFT TISSUES:Distal dorsal soft tissue swelling. EFFUSION:None visible. OTHER: Negative. XR/XR foot LT min 3V IMPRESSION: 1. Dorsal soft tissue swelling of uncertain etiology. 2. No acute bone abnormality or significant degenerative changes. Electronically authenticated by: ELIZA DIAMOND Date: 03/10/2024 13:54
--- NOTE | 2024-03-10 12:51 | ED_ITS ---
HPI HPI - General Adult General Chief complaint: Extremity Injury, Lower Stated complaint: LOWER EXTREMITY PAIN/SWELLING Time Seen by Provider: 03/10/24 12:44 Source: patient Mode of arrival: walk-in Limitations: no limitations History of Present Illness HPI narrative: 33-year-old female presents for swelling in her left foot and pain in the calf. Her mother was worried about a blood clot so she came here to be checked. No chest pain or shortness of breath or symptoms in the right leg. She has had the symptoms for more than a week. Related Data Home Medications ?Medication ?Instructions ?Recorded ?Confirmed citalopram 20 mg tablet mg 03/10/24 venlafaxine 37.5 mg mg PO 03/10/24 capsule,extended release 24 hr Previous Rx's ?Medication ?Instructions ?Recorded acetaminophen 325 mg tablet 650 mg (2 x 325 mg) PO Q6H PRN 11/22/22 Mild Pain #30 tabs Allergies Allergy/AdvReac Type Severity Reaction Status Date / Time Latex, Natural Rubber Allergy Unknown Abdominal Verified 03/10/24 12:37 Pain Opioid HPI Opioid Management Most Recent Opioid Data: Last Pain Scale 3 03/10/24 12:39 03/10/24 Urine Cannabinoids Positive (.) A 11/20/22 03:20 11/20/22 Ur Phencyclidine Scrn Negative (NEGATIVE) 11/20/22 05:20 10/23 05/15 Review of Systems ROS Narrative A ten point review of systems is negative except as noted above. [facility] Medical History (Updated 03/10/24 @ 14:46 by Kobi Bravo MD) Ureteral stent present ?Z96.0 - Presence of urogenital implants (ICD-10) Shingles (2019) ?B02.9 - Zoster without complications (ICD-10) HPV (human papilloma virus) infection ?B97.7 - Papillomavirus as the cause of diseases classified elsewhere (ICD- 10) Back pain ?M54.9 - Dorsalgia, unspecified (ICD-10) Depression ?F32.A - Depression, unspecified (ICD-10) Bronchitis ?J40 - Bronchitis, not specified as acute or chronic (ICD-10) Restless leg ?G25.81 - Restless legs syndrome (ICD-10) Seasonal allergies ?J30.2 - Other seasonal allergic rhinitis (ICD-10) GERD (gastroesophageal reflux disease) ?K21.9 - Gastro-esophageal reflux disease without esophagitis (ICD-10) Heartburn ?R12 - Heartburn (ICD-10) Activity intolerance ?R68.89 - Other general symptoms and signs (ICD-10) Colon polyps ?K63.5 - Polyp of colon (ICD-10) Renal colic on left side ?N23 - Unspecified renal colic (ICD-10) CAMPBELL (acute kidney injury) ?N17.9 - Acute kidney failure, unspecified (ICD-10) Acute unilateral obstructive uropathy ?N13.9 - Obstructive and reflux uropathy, unspecified (ICD-10) Hydronephrosis, left ?N13.30 - Unspecified hydronephrosis (ICD-10) Kidney stones ?N20.0 - Calculus of kidney (ICD-10) Surgical History (Updated 11/16/22 @ 10:52 by Bina Barreto) S/P cystoscopy with ureteral stent placement (~10/2022) ?Z96.0 - Presence of urogenital implants (ICD-10) History of colonoscopy ?Z98.890 - Other specified postprocedural states (ICD-10) Family History (Updated 11/16/22 @ 10:32 by Bina Barreto) Other Family history of Alzheimer's disease Family history of diabetes mellitus Family history of heart disease Family history of hypertension Family history of stroke Social History (Updated 11/16/22 @ 10:24 by Bina Barreto) Within the past year, how often did you have a drink containing alcohol: never Within the past year, how often did you have six or more drinks on one occasion: never Score interpretation: A score less than 3 is consistent with normal alcohol consumption. Smoking status: Former smoker Nicotine containing products detail: CANNABIS Non-prescribed substance use: cannabis (any form) Non-prescribed substance use details: SMOKES 3X A DAY FOR 15 YEARS Previous occupational history: [employer] Highest level of school completed/degree received: high school graduate Little interest or pleasure in doing things: not at all Feeling down, depressed, or hopeless: not at all Exam Narrative Exam Narrative: Nurses note and vital signs reviewed and patient is not hypoxic. General: The patient appears well and in no apparent distress. Patient is resting comfortably on cart. Skin: Warm, dry, no pallor noted. There is no rash noted. Head: Normocephalic, atraumatic Eye: Normal conjunctiva, no drainage Ears, Nose, Mouth, and Throat: oral mucosa is moist. Nares patent. Cardiovascular: Regular Rate and Rhythm Respiratory: Patient is in no distress, no accessory muscle use, lungs are clear to auscultation, no wheezing, rales or rhonchi Back: non-tender GI: Nontender Musculoskeletal: The left foot is swollen. Dorsalis pedis pulse 2+. No erythema bruising or rash. She has minimal tenderness in the left calf area without mass. Neurological: Awake and alert Psychiatric: Cooperative Constitutional Vital Signs, click to edit/add: Last Vital Signs Temp 98.7 F 03/10/24 12:33 Pulse 74 03/10/24 12:33 Resp 18 03/10/24 12:33 BP 124/80 03/10/24 12:33 Pulse Ox 98 03/10/24 12:33 O2 Del Method Room Air 03/10/24 12:33 Course Vital Signs Vital signs: Vital Signs Temperature 98.7 F 03/10/24 12:33 Pulse Rate 74 03/10/24 12:33 Respiratory Rate 18 03/10/24 12:33 Blood Pressure 124/80 03/10/24 12:33 Pulse Oximetry 98 03/10/24 12:33 Oxygen Delivery Method Room Air 03/10/24 12:33 Temperature 98.7 F 03/10/24 12:33 Pulse Rate 74 03/10/24 12:33 Respiratory Rate 18 03/10/24 12:33 Blood Pressure 124/80 03/10/24 12:33 Pulse Oximetry 98 03/10/24 12:33 Oxygen Delivery Method Room Air 03/10/24 12:33 Medical Decision Making MDM Narrative Medical decision making narrative: X-ray shows soft tissue swelling, otherwise negative. Doppler shows no DVT or superficial thrombophlebitis. She was recommended ice and elevation. Treatment diagnosis and follow-up were discussed with the patient. Differential Diagnosis Differential Diagnosis: DVT, superficial thrombophlebitis, arthritis Imaging Data Foot x-ray, Doppler: Radiologist's impression: ITS Impressions Foot X-Ray 03/10/24 12:50 IMPRESSION: 1. Dorsal soft tissue swelling of uncertain etiology. 2. No acute bone abnormality or significant degenerative changes. Electronically authenticated by: ELIZA DIAMOND Date: 03/10/2024 13:54 Venous Doppler Study 03/10/24 12:50 IMPRESSION: 1. No acute lower extremity deep venous thrombosis. 2. No superficial venous thrombosis. Electronically authenticated by: Mary COFFEY Date: 03/10/2024 14:21 Discharge Plan Discharge Chief Complaint: Extremity Injury, Lower Clinical Impression: Left foot pain Patient Disposition: Home, Self-Care Time of Disposition Decision: 14:46 Condition: Good Mode of Transportation: Private Vehicle Prescriptions / Home Meds: No Action acetaminophen 325 mg Tablet 650 mg PO Q6H PRN (Reason: Mild Pain) Qty: 30 0RF venlafaxine 37.5 mg capsule,extended release 24hr PO citalopram 20 mg tablet Print Language: Kinyarwanda Instructions: Leg Pain (ED) Referrals: VICTORIANO RINCON [Primary Care Provider] - 1 week
--- OUTSIDE RECORDS SUMMARY | 2024-03-10 13:04 | XMS_ITS | CCD ---
Author Organization [facility] Care Team Providers Care Hot Metal Charger Name Role Phone Chano Barron Unavailable Adalberto Cook Unavailable Diane Falcon Attending Unavailable DEMETRIUSPALAK FERNANDEZ Attending Unavailable PALAK ROMO Admitting Unavailable DEMETRIUS, PALAK Consulting Unavailable MCKENZIE, DR PASTRANA Primary Care Unavailable CHAVO, KAREN Barron Attending Unavailable KAREN TONY Admitting Unavailable MCKENZIE, DR PASTRANA Primary Care Unavailable DARA, DR ELIZA Gee Consulting Unavailable KAREN TONY Consulting Unavailable PALAK ROMO Attending Unavailable MCKENZIE, DR PASTRANA Primary Care Unavailable PALAK ROMO Admitting Unavailable RIAZ, DR GERSON Aguilar Consulting Unavailable PALAK ROMO Consulting Unavailable KARASIK ., DR BAKER Attending Unavailabl e KARASIK ., DR BAKER Admitting Unavailabl e KARASIK ., DR BAKER Consulting Unavailabl e REQUEST, DR NONE LISTED Primary Care Unavaila ble KARASIK ., DR BAKER Admitting Unavailabl e KARASIK ., DR BAKER Consulting Unavailabl e KARASIK ., DR BAKER Attending Unavailabl e KUNS, DR PASTRANA Primary Care Unavailable KARASIK ., DR BAKER Attending Unavailabl e KARASIK ., DR BAKER Admitting Unavailabl e KARASIK ., DR BAKER Consulting Unavailabl e REQUEST, NONE LISTED Primary Care Unavaila ble KARASIK ., DR BAKER Attending Unavailabl e KARASIK ., DR BAKER Admitting Unavailabl e KARASIK ., DR BAKER Consulting Unavailabl e REQUEST, DR NONE LISTED Primary Care Unavaila ble WEST, DR GERSON Aguilar Consulting Unavailable EMIL SHIELDS Consulting Unavailable MIKA .JORDON Admitting Unavailable GRECHNY ., PERCY RODRÍGUEZ Consulting Unavailabl e MCKENZIE, DR PASTRANA Primary Care Unavailable MIKA ., JORDON Attending Unavailable GERSON STRICKLAND Unavailable KARASIK ., DR BAKER Admitting Unavailabl e KARASIK ., DR BAKER Consulting Unavailabl e REQUEST, DR NONE LISTED Primary Care Unavaila ble KARASIK ., DR BAKER Attending Unavailabl e ZIEBER, DR ELIZA Gee Consulting Unavailable KARASIK ., DR BAKER Admitting Unavailabl e KARASIK ., DR BAKER Consulting Unavailabl e KARASIK ., DR BAKER Attending Unavailabl e KUNS, DR PASTRANA Primary Care Unavailable BRONAUGH, DR GERSON Aguilar Consulting Unavailable KUNAnt, DR PASTRANA Primary Care Unavailable DEMETRIUS, PALAK Attending Unavailable DEMETRIUS, PALAK Admitting Unavailable DEMETRIUS, PALAK Consulting Unavailable KARASIK ., DR BAKER Admitting Unavailabl e KARASIK ., DR BAKER Consulting Unavailabl e KARASIK ., DR BAKER Attending Unavailabl e REQUEST, DR NONE LISTED Primary Care Unavaila ble WEST, DR GERSON Aguilar Consulting Unavailable KARASIK ., DR BAKER Admitting Unavailabl e KARASIK ., DR BAKER Consulting Unavailabl e KARASIK ., DR BAKER Attending Unavailabl e KUNAnt, DR PASTRANA Primary Care Unavailable ANNE BURKETT Attending Unavailable MELISSA RENDON Attending Unavailable MELISSA RENDON Attending Unavailable ANNE BURKETT Attending Unavailable MELISSA RENDON Attending Unavailable MELISSA RENDON Attending Unavailable Medications Current Medications Medication Drug Class(es) Dates Sig (Normalized) Sig (Original) polyethylene glycol 3350 01075 mg powder for oral solution (2 sources) Osmotic Laxative Start: 06-14-2021 Polyethylene Glycol 3350 17 GM/SCOOP as directed Orally Once a day for 30 day(s) May, Active (2 sources) Active Completed/Discontinued Medications Medication Drug Class(es) Dates Sig (Normalized) Sig (Original) Ketorolac (1 source) Nonsteroidal Anti-inflammatory Drug, Cyclooxygenase Inhibitor Start: 07-15-2012 Toradol per 15 mg Jun, 2 ml Triamcinolone (1 source) Corticosteroid Start: 09-08-2020 KENALOG - 10 mg August, 40 mg Problems Active Problems Problem Classification Problem Date Documented Da te Episodic/Chronic Abdominal pain (1 source) Left lower quadrant pain; Translations: [LEFT LOWER QUADRANT PAIN] Onset: 08-18-2022 Episodic Mood disorders (2 sources) Major depressive disorder, single episode, unspecified; Translations: [Depression] Chronic Other complications of (4 sources) Other specified related conditions, second trimester; Translations: [OTH SPEC PREG RELATED COND 2ND TRI] Onset: 08-16-2022 Episodic Other diseases of kidney and ureters (1 source) Unspecified hydronephrosis; Translations: [UNSPECIFIED HYDRONEPHROSIS] Onset: 08-18-2022 Episodic Other gastrointestinal disorders (2 sources) Constipation; Translations: [Constipation, unspecified] Episodic Other nutritional; endocrine; and metabolic disorders (2 sources) Obese class II; Translations: [Body mass index (BMI) 38.0-38.9, adult] Chronic Other and delivery including normal (8 sources) Encounter for supervision of other normal , second trimester; Translations: [Encounter for supervision of other normal , first trimester] Onset: 06-14-2022 Episodic Other screening for suspected conditions (not mental disorders or infectious disease) (8 sources) Encounter for other specified screening; Translations: [Encounter for screening for malignant neoplasm of cervix] Onset: 01-27-2022 Episodic Residual codes; unclassified (1 source) 23 weeks gestation of ; Translations: [23 WEEKS GESTATION OF ] Onset: 08-18-2022 Episodic Substance-related disorders (1 source) Nicotine dependence, cigarettes, uncomplicated; Translations: [NICOTINE DEPEND CIGARETTES UNCOMP] Onset: 09-20-2021 Chronic Unclassified (1 source) OT SPCF DIS/COND COMPL ; Translations: [OT SPCF DIS/COND COMPL ] Onset: 08-18-2022 Past or Other Problems Problem Classification Problem Date Documented Da te Episodic/Chronic Anal and rectal conditions (1 source) Other specified diseases of anus and rectum Onset: 06-14-2021 Resolved: 06-14-2021 Episodic E Codes: Overexertion (1 source) Slipping, tripping and stumbling without falling, unspecified, initial encounter; Translations: [SLIP TRIP STUMBL NO FALL UNS INIT] Onset: 09-20-2021 Episodic Fracture of lower limb (9 sources) Displaced fracture of distal phalanx of left great toe, subsequent encounter for fracture with routine healing; Translations: [Displaced fracture of distal phalanx of left great toe, initial encounter for open fracture] Onset: 09-20-2021 Episodic Other connective tissue disease (4 sources) Pain in left foot; Translations: [PAIN IN LEFT FOOT] Onset: 12-06-2021 Episodic Other connective tissue disease (3 sources) Pain in right toe(s); Translations: [PAIN IN RIGHT TOES] Onset: 09-19-2021 Episodic Other gastrointestinal disorders (1 source) Constipation, unspecified Onset: 06-14-2021 Resolved: 06-14-2021 Episodic Results Test Name Value Interpretation Reference Range Facility CBC AUTO DIFFon 08-25-2022 BASO # 0.0 103/ul Normal 0.0-0.1 [facility] Comment on above: Performed By: #### C BC #### [facility] [address] [address] [address] Lara Greene Basophils/100 WBC (Bld) 0.2 % Normal 0.2-2.0 [facility] Comment on above: Performed By: #### C BC #### [facility] [address] [place] [address] Dr. Lara Greene EO # 0.0 103/ul Normal 0.0-0.7 [facility] Comment on above: Performed By: #### C BC #### [facility] [address] [address] [address] Lara Greene Eosinophils/100 WBC (Bld) 0.1 % Critically low 0.9-7.0 [facility] Comment on above: Performed By: #### C BC #### [facility] [address] [address] [address] Lara Greene Erythrocyte distribution width (RBC) [Ratio] 12.4 % Normal 11.0-15.0 [facility] Comment on above: Performed By: #### C BC #### [facility] [address] [address] [address] Lara Greene Hematocrit (Bld) [Volume fraction] 31.4 % Critically low 36.0-48.0 [facility] Comment on above: Performed By: #### C BC #### [facility] [address] [place] [address] Dr. Lara Greene Hemoglobin (Bld) [Mass/Vol] 11.0 g/dL Critically low 12.0-16.0 [facility] Comment on above: Performed By: #### C BC #### [facility] [address] [place] [address] Dr. Lara Greene IG # 0.06 10e3/ul Critically high 0.00-0.03 [facility] Comment on above: Performed By: #### C BC #### [facility] [address] [place] [address] Dr. Lara Greene IG % 0.5 % Normal 0.0-0.5 [facility] Comment on above: Performed By: #### C BC #### [facility] [address] [place] [address] Dr. Lara Greene LYMPH # 1.9 103/ul Normal 1.2-3.8 [facility] Comment on above: Performed By: #### C BC #### [facility] [address] [place] [address] Dr. Lara Greene Lymphocytes/100 WBC (Bld) 16.0 % Critically low 20.5-60.0 [facility] Comment on above: Performed By: #### C BC #### [facility] [address] [place] [address] Dr. Lara Greene MANUAL DIFF REQ NO Normal [facility] Comment on above: Performed By: #### C BC #### [facility] [address] [place] [address] Dr. Lara Greene MCH (RBC) [Entitic mass] 32.5 pg Normal 26.7-34.0 [facility] Comment on above: Performed By: #### C BC #### [facility] [address] [place] [address] Dr. Lara Greene MCHC (RBC) [Mass/Vol] 35.0 g/dL Normal 29.9-35.2 [facility] Comment on above: Performed By: #### C BC #### [facility] [address] [place] [address] Dr. Lara Greene MCV (RBC) [Entitic vol] 92.9 fL Normal 81.0-99.0 [facility] Comment on above: Performed By: #### C BC #### [facility] [address] [place] [address] Dr. Lara Greene MONO # 0.5 103/ul Normal 0.3-0.8 [facility] Comment on above: Performed By: #### C BC #### [facility] [address] [place] [address] Dr. Lara Greene Monocytes/100 WBC (Bld) 4.3 % Normal 1.7-12.0 [facility] Comment on above: Performed By: #### C BC #### [facility] [address] [place] [address] Dr. Lara Greene NEUT # 9.2 103/ul Critically high 1.4-6.5 [facility] Comment on above: Performed By: #### C BC #### [facility] [address] [place] [address] Dr. Lara Greene Neutrophils/100 WBC (Bld) 78.9 % Critically high 43.0-75.0 [facility] Comment on above: Performed By: #### C BC #### [facility] [address] [place] [address] Dr. Lara Greene Platelet mean volume (Bld) [Entitic vol] 9.7 fL Normal 9.5-13.5 [facility] Comment on above: Performed By: #### C BC #### [facility] [address] [place] [address] Dr. Lara Greene PLT 219 103/ul Normal 150-450 [facility] Comment on above: Performed By: #### C BC #### [facility] [address] [place] [address] Dr. Lara Greene RBC 3.38 106/ul Critically low 4.20-5.40 [facility] Comment on above: Performed By: #### C BC #### [facility] [address] [place] [address] Dr. Lara Greene WBC 11.7 103/ul Critically high 4.0-11.0 [facility] Comment on above: Performed By: #### C BC #### [facility] [address] [place] [address] Dr. Lara Greene GLUCOSE - 1HRon 08-25-2022 Glucose [Mass/Vol] 137 mg/dL Critically high 74-[address] [facility] Comment on above: Performed By: #### G LU1HR #### [facility] [address] [place] [address] Dr. Lara Greene CBC AUTO DIFFon 08-16-2022 BASO # 0.0 103/ul Normal 0.0-0.1 [facility] Comment on above: Performed By: #### C BC #### [facility] [address] [place] [address] Dr. Lara Greene Basophils/100 WBC (Bld) 0.2 % Normal 0.2-2.0 [facility] Comment on above: Performed By: #### C BC #### [facility] [address] [place] [address] Dr. Lara Greene EO # 0.1 103/ul Normal 0.0-0.7 [facility] Comment on above: Performed By: #### C BC #### [facility] [address] [place] [address] Dr. aLra Greene Eosinophils/100 WBC (Bld) 0.6 % Critically low 0.9-7.0 [facility] Comment on above: Performed By: #### C BC #### [facility] [address] [place] [address] Dr. Lara Greene Erythrocyte distribution width (RBC) [Ratio] 12.5 % Normal 11.0-15.0 [facility] Comment on above: Performed By: #### C BC #### [facility] [address] [place] [address] Dr. Lara Greene Hematocrit (Bld) [Volume fraction] 33.8 % Critically low 36.0-48.0 [facility] Comment on above: Performed By: #### C BC #### [facility] [address] [place], [place] [id number] Dr. Lara Greene Hemoglobin (Bld) [Mass/Vol] 11.9 g/dL Critically low 12.0-16.0 [facility] Comment on above: Performed By: #### C BC #### [facility] [address] [place] [address] Dr. Lara Greene IG # 0.05 10e3/ul Critically high 0.00-0.03 [facility] Comment on above: Performed By: #### C BC #### [facility] [address] [place] [address] Dr. Lara Greene IG % 0.4 % Normal 0.0-0.5 [facility] Comment on above: Performed By: #### C BC #### [facility] [address] [place] [address] Dr. Lara Greene LYMPH # 2.2 103/ul Normal 1.2-3.8 [facility] Comment on above: Performed By: #### C BC #### [facility] [address] [place] [address] Dr. Lara Greene Lymphocytes/100 WBC (Bld) 18.8 % Critically low 20.5-60.0 [facility] Comment on above: Performed By: #### C BC #### [facility] [address] [place] [address] Dr. Lara Greene MANUAL DIFF REQ NO Normal [facility] Comment on above: Performed By: #### C BC #### [facility] [address] [place] [address] Dr. Lara Greene MCH (RBC) [Entitic mass] 31.8 pg Normal 26.7-34.0 [facility] Comment on above: Performed By: #### C BC #### [facility] [address] [place] [address] Dr. Lara Greene MCHC (RBC) [Mass/Vol] 35.2 g/dL Normal 29.9-35.2 [facility] Comment on above: Performed By: #### C BC #### [facility] [address] [place] [address] Dr. Lara Greene MCV (RBC) [Entitic vol] 90.4 fL Normal 81.0-99.0 [facility] Comment on above: Performed By: #### C BC #### [facility] [address] [place] [address] Dr. Lara Greene MONO # 0.7 103/ul Normal 0.3-0.8 [facility] Comment on above: Performed By: #### C BC #### [facility] [address] [place] [address] Dr. Lara Greene Monocytes/100 WBC (Bld) 6.3 % Normal 1.7-12.0 [facility] Comment on above: Performed By: #### C BC #### [facility] [address] [place] [address] Dr. Lara Greene NEUT # 8.7 103/ul Critically high 1.4-6.5 [facility] Comment on above: Performed By: #### C BC #### [facility] [address] [place] [address] Dr. Lara Greene Neutrophils/100 WBC (Bld) 73.7 % Normal 43.0-75.0 [facility] Comment on above: Performed By: #### C BC #### [facility] [address] [place] [address] Dr. Lara Grenee Platelet mean volume (Bld) [Entitic vol] 9.9 fL Normal 9.5-13.5 [facility] Comment on above: Performed By: #### C BC #### [facility] [address] [place] [address] Dr. Lara Greene PLT 226 103/ul Normal 150-450 [facility] Comment on above: Performed By: #### C BC #### [facility] [address] [place] [address] Dr. Lara Greene RBC 3.74 106/ul Critically low 4.20-5.40 [facility] Comment on above: Performed By: #### C BC #### [facility] [address] [place] [address] Dr. Lara Greene WBC 11.8 103/ul Critically high 4.0-11.0 [facility] Comment on above: Performed By: #### C BC #### [facility] [address] [address] [address] Lara Greene CULTURE URINEon 08-16-2022 CULTURE URINE Culture Observations : NO GROWTH. Normal [facility] Comment on above: Performed By: #### D RUGRPD #### [facility] [address] [address] [address] Lara Greene UA (CLEAN/CATCH) CABLE OPERATOR/MICRO I F IND.on 08-16-2022 Bilirubin Ql (U) Negative Normal NEGATIVE [facility] Comment on above: Performed By: #### U ACSIND, UMICRO #### [facility] [address] [place] [address] Dr. Lara Greene Clarity (U) CLEAR Normal CLEAR [facility] Comment on above: Performed By: #### U ACSIND, UMICRO #### [facility] [address] [place] [address] Dr. Lara Greene Color (U) YELLOW Normal YELLOW [facility] Comment on above: Performed By: #### U ACSIND, UMICRO #### [facility] [address] [place] [address] Dr. Lara Greene Glucose Ql (U) Negative Normal NEGATIVE [facility] Comment on above: Performed By: #### U ACSIND, UMICRO #### [facility] [address] [place] [address] Dr. Lara Greene Hemoglobin Ql (U) LARGE Abnormal NEGATIVE [facility] Comment on above: Performed By: #### U ACSIND, UMICRO #### [facility] [address] [place] [address] Dr. Lara Greene Ketones Ql (U) Negative Normal NEGATIVE [facility] Comment on above: Performed By: #### U ACSIND, UMICRO #### [facility] [address] [place] [address] Dr. Lara Greene LEUKOCYTES Negative Normal NEGATIVE [facility] Comment on above: Performed By: #### U ACSIND, UMICRO #### [facility] [address] [address] [address] Lara Greene Nitrite Ql (U) Negative Normal NEGATIVE [facility] Comment on above: Performed By: #### U ACSDIMA UMICRO #### [facility] [address] [place] [address] Dr. Lara rGeene pH (U) 7.0 [pH] Normal 5-9 [facility] Comment on above: Performed By: #### U ACSDIMA UMICRO #### [facility] [address] [place] [address] Dr. Lara Greene SPEC GRAVITY 1.020 Normal 1.005-<=1.025 [facility] Comment on above: Performed By: #### U MARIAH UMICRO #### [facility] [address] [place] [address] Dr. Lara Greene UA PROTEIN 30 mg/dl Abnormal NEGATIVE/ TRACE [facility] Comment on above: Performed By: #### U MARIAH UMICRO #### [facility] [address] [place] [address] Dr. Lara Greene UR MICRO IND INDICATED Normal [facility] Comment on above: Performed By: #### U MARIAH UMICRO #### [facility] [address] [place] [address] Dr. Lara Greene Urobilinogen Qn (U) 0.2 {Francisco'U}/dL Normal 0.2 - 1. 0 [facility] Comment on above: Performed By: #### U ACSDIMA UMICRO #### [facility] [address] [place] [address] Dr. Lara Greene URINE MICROSCOPIC ONLYon BACTERIA SMALL Abnormal NONE SEEN [facility] Comment on above: Performed By: #### U ACSDIMA UMICRO #### [facility] [address] [place] [address] Dr. Lara Greene Bacteria identified Cx Nom (U) INDICATED Normal [facility] Comment on above: Performed By: #### U ACSDIMA UMICRO #### [facility] [address] [place], [place] [id number] Dr. Lara Greene CA OX CRYSTALS RARE Normal [facility] Comment on above: Performed By: #### U ACSIND, UMICRO #### [facility] [address] [place] [address] Dr. Lara Greene CAST NONE SEEN Normal NONE SEEN [facility] Comment on above: Performed By: #### U ACSIND, UMICRO #### [facility] [address] [place] [address] Dr. Lara Greene Crystals LM Nom (Urine sed) SEEN Abnormal NONE SEEN [facility] Comment on above: Performed By: #### U ACSIND, UMICRO #### [facility] [address] [place] [address] Dr. Lara Greene Epithelial cells LM Ql (Urine sed) FEW Abnormal NONE SEEN /RARE [facility] Comment on above: Performed By: #### U ACSIND, UMICRO #### [facility] [address] [place] [address] Dr. Lara Greene MUCOUS NONE SEEN Normal NONE SEEN [facility] Comment on above: Performed By: #### U ACSIND, UMICRO #### [facility] [address] [place] [address] Dr. Lara Greene RBC 20-50 Abnormal 0-2 [facility] Comment on above: Performed By: #### U ACSIND, UMICRO #### [facility] [address] [place] [address] Dr. Lara Greene WBC 0-2 Abnormal NONE SEEN [facility] Comment on above: Performed By: #### U ACSIND, UMICRO #### [facility] [address] [place] [address] Dr. Lara Greene US APPENDIXon 08-16-2022 US APPENDIX EXAM: US APPENDIX HISTORY: Left sided abdominal pain COMPARISON: None. TECHNIQUE: Grayscale and color ultrasound FINDINGS: Normal bowel loops. No ascites. The appendix is not visualized. Oval hypoechogenic structure in the right pelvis possibly a normal ovary measuring 4.5 x 2.0 x 3.2 cm IMPRESSION: Nonvisualization of the appendix Electronically authenticated by: GERSON MELLO Date: 2022-08-16 15:21 Normal [facility] US KIDNEYSon 08-16-2022 US KIDNEYS EXAM: US KIDNEYS HISTORY: Left sided abdominal pain COMPARISON: None. TECHNIQUE: Retroperitoneal ultrasound of the bilateral kidneys was performed with ramirez scale and color Doppler imaging. FINDINGS: KIDNEYS: RIGHT KIDNEY: Maximum length: 11.3 cm. Morphology: Normal echogenicity; no nephrolithiasis identified. There is a 0.3 cm echogenic focus, likely representing nonobstructing stone. Solid/cystic lesions: None. Collecting system: No hydronephrosis. LEFT KIDNEY: Maximum length: 12.3 cm. Morphology: Normal echogenicity; no nephrolithiasis identified. There is a 0.8 cm echogenic focus in the lower pole with posterior acoustic shadowing, representing a stone. Solid/cystic lesions: None. Collecting system: Mild hydronephrosis. BLADDER: Not imaged. Additional findings: None. IMPRESSION: 0.3 cm right renal stone. No hydronephrosis. 0.8 cm left lower pole renal stone. Mild hydronephrosis. Electronically authenticated by: EMIL SHIELDS Date: 2022-08-16 16:31 Normal [facility] US PREG CERVICAL LENGTHon US PREG CERVICAL LENGTH EXAMINATION: US PREG CERVICAL LENGTH HISTORY: Left sided abdominal pain COMPARISON: No relevant comparison available. FINDINGS: Closed cervix measuring 3.7 cm in length IMPRESSION: Closed cervix measuring 3.7 cm Electronically authenticated by: GERSON MELLO Date: 2022-08-16 15:20 Normal [facility] US PREG GROWTHon 08-16-2022 US PREG GROWTH EXAMINATION: US PREG GROWTH HISTORY: Patient currently COMPARISON: No relevant comparison available. FINDINGS: Heart Rate: 117.4 bpm Amniotic Fluid Volume: 17.1 cm Number: 1.0 Cervix: Closed, 3.7 cm Position: Cephalic presentation, longitudinal lie Placenta: Anterior. Placental edge is 6.8 cm from the internal os, grade 1. Maximum Vertical Pocket: 5.7 cm cm 5.1 cm cm 1.0 cm cm 5.3 cm cm BIOMETRY: BPD: 5.9 cm cm; 24 weeks 0 days; 53% HC: 22.2 cmcm; 24 weeks 1 days, 52% AC: 18.8 cm cm; 23 weeks 4 days, 37% FL: 4.0 cm cm; 22 weeks 5 days; 12.1 % % EFW: 585.0 grams, 1 lb. 5 oz., 25% FL/AC: 21.0 FL/BPD: 67.5 HC/AC: 1.2 GESTATIONAL AGE: Age by EDC: 23 weeks 5 days SONU by EDC: 12/08/2022 Age by US: 23 weeks 4 days SONU by US: 12/09/2022 IMPRESSION: Normal interval growth Electronically authenticated by: GERSON MELLO Date: 2022-08-16 13:35 Normal [facility] US PREG PLACENTAon US PREG PLACENTA EXAMINATION: US PREG PLACENTA HISTORY: Patient currently COMPARISON: 08/16/2022 FINDINGS: Placenta: Anterior. Placental edge 6.8 cm from the cervical os. Grade 1. Small areas of anechoic echogenicity measuring up to 1.3 cm, small placental franz suspected. No retroplacental echogenic abnormality to suggest hemorrhage Closed cervix measuring 3.7 cm IMPRESSION: No acute abnormality Electronically authenticated by: GERSON MELLO Date: 2022-08-16 13:36 Normal [facility] US PREG ANATOMY SINGLEon US PREG ANATOMY SINGLE EXAMINATION: US PREG ANATOMY SINGLE HISTORY: anatomy study COMPARISON: Ultrasound transvaginal 05/08/2022 TECHNIQUE: Transabdominal sonographic examination was performed for obstetrical and evaluation. FINDINGS: Number: 1 Heart Rate: 134.0 bpm H.B. /min Amniotic Fluid Volume: Subjectively normal Placental Location: Anterior with lower margin 3.0 cm from os. Cervix Length: 4.1 cm, closed. ANATOMY: Normal Structures -cerebellum, choroid plexus, cisterna magna, lateral cerebral ventricles, orbits, midline falx, hard palate, four-chamber heart, RVOT, LVOT, stomach, kidneys, bladder, umbilical cord insertion into abdomen, three-vessel cord, cervical spine, thoracic spine, lumbar spine, sacral spine, right upper extremity, left upper extremity, right lower extremity, left lower extremity. SUBOPTIMALLY SEEN: None ABNORMALITIES: None BIOMETRY: BPD: 4.7 cm , 20 weeks 3 days HC: 17.5 cm , 20 weeks 0 days AC: 14.8 cm , 20 weeks 1 day FL: 3.5 cm , 21 weeks 1 day EFW:357.8 grams; 33% by LMP; 49% by ultrasound FL/AC: 0.2 FL/BPD: 0.7 HC/AC: 1.2 GESTATIONAL AGE: Age by EDC: 20 weeks 5 days SONU by EDC: 12/08/2022 Age by current US: 20 weeks 3 days SONU by current US: 12/10/2022 IMPRESSION: 1. Single live intrauterine with growth detailed above. 2. Borderline low-lying anterior placenta. Electronically authenticated by: ELIZA DIAMOND Date: 2022-07-26 10:38 Normal [facility] AFP MATERNAL FOR SPINA BIFID Aon 07-22-2022 AFP MoM 0.72 Normal [facility] Comment on above: Performed By: #### A FPMAT #### [facility] [address] [address] [address] Lara Greene AFP Value 34.0 ng/mL Normal [facility] Comment on above: Performed By: #### A FPMAT #### [facility] [address] [address] [address] Lara Greene AFP, Serum for Spina Bifida Report Normal [facility] Comment on above: Performed By: #### A FPMAT #### [facility] [address] [address] [address] Lara Greene Comment Comment Normal [facility] Comment on above: Result Comment: Florentino Schrader, Ph.D., [facility] Director . References: Available Upon Request. . Multiples Of Median Cutoffs For AFP Elevations Jessica 2.5 Black 2.8 IDD 2.0 Twins 4.5 Abbreviation Definitions IDD - Insulin Dep Diabetes OSBR - Open Spina Bifida Risk . For further inquiries contact [employer] [facility] [facility] at [phone]. . This test was developed and its performance characteristics determined by [email or web address]. It has not been cleared or approved by the Food and Drug Administration. Performed By: #### A FPMAT #### [facility] [address] [address] [address] Lara Greene Gest Age Collection Date 19.9 weeks Normal [facility] Comment on above: Performed By: #### A FPMAT #### [facility] [address] [place] [address] Dr. Lara Greene Gestat, Age Based on LMP Normal [facility] Comment on above: Result Comment: Reca lculations are not recommended when gestational dating by LMP and ultrasound are within 10 days. Performed By: #### A FPMAT #### [facility] [address] [place] [address] Dr. Lara Greene Insulin Dep Diabetes No Normal [facility] Comment on above: Performed By: #### A FPMAT #### [facility] [address] [place] [address] Dr. Lara Greene Interpretation Comment Normal [facility] Comment on above: Result Comment: Inte rpretation: Screen Negative . This result is screen negative for OSB. The AFP MoM calculated is based on the gestational age provided. MS-AFP can identify up to 80% of open neural tube defects. Closed neural tube defects and some open defects may not be detected by this test. This test does not screen for Down Syndrome or Trisomy 18. If screening for Down Syndrome or Trisomy 18 is desired, contact [employer] to discuss available options. The [employer] recommends amniocentesis be offered to women age 35 and older. Performed By: #### A FPMAT #### [facility] [address] [place] [address] Dr. Lara Greene [age] Normal [facility] Comment on above: Performed By: #### A FPMAT #### [facility] [address] [place] [address] Dr. Lara Greene Multiple Gestation No Normal [facility] Comment on above: Performed By: #### A FPMAT #### [facility] [address] [place] [address] Dr. Lara Greene OSBR [place] 1 [place] [id number] [facility] Comment on above: Performed By: #### A FPMAT #### [facility] [address] [place] [address] Dr. Lara Greene PDF . Normal [facility] Comment on above: Performed By: #### A FPMAT #### [facility] [address] [address] [address] Lara Greene Race Normal [facility] Comment on above: Performed By: #### A FPMAT #### [facility] [address] [address] [address] Lara Greene Test Results: Negative Normal [facility] Comment on above: Performed By: #### A FPMAT #### [facility] [address] [address] [address] Lara Greene HEP B SURFACE ANTIGEN SCREEN on 06-15-2022 HBsAg Screen Negative Normal Negative [facility] Comment on above: Performed By: #### H BSANS #### [facility] [address] [place] [address] Dr. Lara Greene HEPATITIS C VIRUS AB W/ REFL EX QUANTon 06-15-2022 HCV AB Non-Reactive Normal Non Reactive [facility] Comment on above: Performed By: #### H BSANS #### [facility] [address] [place] [address] Dr. Lara Greene Interpretation: Comment Normal [facility] Comment on above: Result Comment: Not infected with HCV unless early or acute infection is suspected (which may be delayed in an immunocompromised individual), or other evidence exists to indicate HCV infection. Performed By: #### H BSANS #### [facility] [address] [place] [address] Dr. Lara Greene HIV 1 AND 2 WITH REFLEXon HIV Screen 4th Generation wRfx Non-Reactive Normal Non Reactive [facility] Comment on above: Result Comment: HIV Negative HIV-1/HIV-2 antibodies and HIV-1 p24 antigen were NOT detected. There is no laboratory evidence of HIV infection. Performed By: #### H IV12 #### [facility] [address] [place] [address] Dr. Lara Greene RPR QUANTon 06-15-2022 Rapid Plasma Reagin, Quant Non-Reactive Normal NonRea<1:1 [facility] Comment on above: Result Comment: Plea se Note: This test does not meet current guidelines for screening and diagnosis of syphilis. This test is intended for following treatment response in patients being treated for syphilis infection. To screen for syphilis infection, a reflex cascade that includes both RPR and a treponema-specific assay should be utilized, such as Treponema pallidum (Syphilis) Screening Foley (780912) or Rapid Plasma Reagin (RPR) Test With Reflex to Quantitative RPR and Confirmatory Treponema pallidum Antibodies (708519). Performed By: #### H BSANS #### [facility] [address] [place] [address] Dr. Lara Greene RUBELLA AB IGGon 06-15-2022 Rubella Antibodies, IgG 2.27 index Normal Immune >0.99 [facility] Comment on above: Result Comment: Non- immune <0.90 Equivocal 0.90 - 0.99 Immune >0.99 Performed By: #### R UBIGG #### [facility] [address] [place] [address] Dr. Lara Greene CBC AUTO DIFFon 06-14-2022 BASO # 0.0 103/ul Normal 0.0-0.1 [facility] Comment on above: Performed By: #### D RUGRPD #### [facility] [address] [place] [address] Dr. Lara Greene Basophils/100 WBC (Bld) 0.2 % Normal 0.2-2.0 [facility] Comment on above: Performed By: #### D RUGRPD #### [facility] [address] [place] [address] Dr. Lara Greene EO # 0.1 103/ul Normal 0.0-0.7 [facility] Comment on above: Performed By: #### D RUGRPD #### [facility] [address] [place] [address] Dr. Lara Greene Eosinophils/100 WBC (Bld) 0.7 % Critically low 0.9-7.0 [facility] Comment on above: Performed By: #### D RUGRPD #### [facility] [address] [place] [address] Dr. Lara Greene Erythrocyte distribution width (RBC) [Ratio] 13.2 % Normal 11.0-15.0 [facility] Comment on above: Performed By: #### D RUGRPD #### [facility] [address] [place] [address] Dr. Lara Greene Hematocrit (Bld) [Volume fraction] 31.6 % Critically low 36.0-48.0 [facility] Comment on above: Performed By: #### D RUGRPD #### [facility] [address] [place] [address] Dr. Lara Greene Hemoglobin (Bld) [Mass/Vol] 11.3 g/dL Critically low 12.0-16.0 [facility] Comment on above: Performed By: #### D RUGRPD #### [facility] [address] [place] [address] Dr. Lara Greene IG # 0.03 10e3/ul Normal 0.00-0.03 [facility] Comment on above: Performed By: #### D RUGRPD #### [facility] [address] [place] [address] Dr. Lara Greene IG % 0.4 % Normal 0.0-0.5 [facility] Comment on above: Performed By: #### D RUGRPD #### [facility] [address] [place] [address] Dr. Lara Greene LYMPH # 2.1 103/ul Normal 1.2-3.8 [facility] Comment on above: Performed By: #### D RUGRPD #### [facility] [address] [place] [address] Dr. Lara Greene Lymphocytes/100 WBC (Bld) 24.6 % Normal 20.5-60.0 [facility] Comment on above: Performed By: #### D RUGRPD #### [facility] [address] [place] [address] Dr. Lara Greene MANUAL DIFF REQ NO Normal [facility] Comment on above: Performed By: #### D RUGRPD #### [facility] [address] [place] [address] Dr. Lara Greene MCH (RBC) [Entitic mass] 32.0 pg Normal 26.7-34.0 [facility] Comment on above: Performed By: #### D RUGRPD #### [facility] [address] [place] [address] Dr. Lara Greene MCHC (RBC) [Mass/Vol] 35.8 g/dL Critically high 29.9-35.2 [facility] Comment on above: Performed By: #### D RUGRPD #### [facility] [address] [place] [address] Dr. Lara Greene MCV (RBC) [Entitic vol] 89.5 fL Normal 81.0-99.0 [facility] Comment on above: Performed By: #### D RUGRPD #### [facility] [address] [place] [address] Dr. Lara Greene MONO # 0.4 103/ul Normal 0.3-0.8 [facility] Comment on above: Performed By: #### D RUGRPD #### [facility] [address] [place] [address] Dr. Lara Greene Monocytes/100 WBC (Bld) 4.8 % Normal 1.7-12.0 [facility] Comment on above: Performed By: #### D RUGRPD #### [facility] [address] [place] [address] Dr. Lara Greene NEUT # 5.8 103/ul Normal 1.4-6.5 [facility] Comment on above: Performed By: #### D RUGRPD #### [facility] [address] [place] [address] Dr. Lara Greene Neutrophils/100 WBC (Bld) 69.3 % Normal 43.0-75.0 [facility] Comment on above: Performed By: #### D RUGRPD #### [facility] [address] [place] [address] Dr. Lara Greene Platelet mean volume (Bld) [Entitic vol] 9.8 fL Normal 9.5-13.5 [facility] Comment on above: Performed By: #### D RUGRPD #### [facility] [address] [place] [address] Dr. Lara Greene PLT 217 103/ul Normal 150-450 [facility] Comment on above: Performed By: #### D RUGRPD #### [facility] [address] [place] [address] Dr. Lara Greene RBC 3.53 106/ul Critically low 4.20-5.40 [facility] Comment on above: Performed By: #### D RUGRPD #### [facility] [address] [place] [address] Dr. Lara Greene WBC 8.4 103/ul Normal 4.0-11.0 [facility] Comment on above: Performed By: #### D RUGRPD #### [facility] [address] [place] [address] Dr. Lara Greene CULTURE URINEon 06-14-2022 CULTURE URINE Culture Observations : LIGHT GROWTH OF MIXED GENITAL DURAN. NO POTENTIAL PATHOGENS SEEN. Normal [facility] Comment on above: Performed By: #### D RUGRPD #### [facility] [address] [place] [address] Dr. Lara Greene DRUG SCREEN RAPID (URINE)on 06-14-2022 AMP Negative Normal NEGATIVE [facility] Comment on above: Performed By: #### D RUGRPD #### [facility] [address] [place] [address] Dr. Lara Greene BAR Negative Normal NEGATIVE [facility] Comment on above: Performed By: #### D RUGRPD #### [facility] [address] [place] [address] Dr. Lara Greene BUP Negative Normal NEGATIVE [facility] Comment on above: Performed By: #### D RUGRPD #### [facility] [address] [place] [address] Dr. Lara Greene BZO Negative Normal NEGATIVE [facility] Comment on above: Performed By: #### D RUGRPD #### [facility] [address] [place] [address] Dr. Lara Greene CLEMENT Negative Normal NEGATIVE [facility] Comment on above: Performed By: #### D RUGRPD #### [facility] [address] [place] [address] Dr. Lara Greene CUT-OFFS SEE BELOW Normal [facility] Comment on above: Result Comment: AMP (Amphetamine): 500ng/mL, BAR (Barbituates): 200 ng/mL, BZO (Benzodiazepines): 150 ng/mL, BUP (Buprenorphine): 10 ng/mL, CLEMENT (Cocaine): 150 ng/mL, mAMP (Methamphetamine): 500 ng/mL, MTD (Methadone): 200 ng/mL, OPI (Opiates): 100 ng/mL, OXY (Oxycodone): 100 ng/mL, PCP (Phencyclidine): 25 ng/mL, PPX (Propoxyphene): 300 ng/mL, THC (Cannabinoids): 50 ng/mL, TCA (Trycyclic Antidepressants): 300 ng/mL Performed By: #### D RUGRPD #### [facility] [address] [place] [address] Dr. Lara Greene DRUG CUT HEADER DRUG CLASS TEST SYST EM CUT-OFF CONCENTRATIONS ARE FOLLOWS: Normal [facility] Comment on above: Performed By: #### D RUGRPD #### [facility] [address] [place] [address] Dr. Lara Greene mAMP Negative Normal NEGATIVE [facility] Comment on above: Performed By: #### D RUGRPD #### [facility] [address] [place] [address] Dr. Lara Greene MTD Negative Normal NEGATIVE [facility] Comment on above: Performed By: #### D RUGRPD #### [facility] [address] [place] [address] Dr. Lara Greene OPI Negative Normal NEGATIVE [facility] Comment on above: Performed By: #### D RUGRPD #### [facility] [address] [place] [address] Dr. Lara Greene OXY Negative Normal NEGATIVE [facility] Comment on above: Performed By: #### D RUGRPD #### [facility] [address] [place] [address] Dr. Lara Greene PCP Negative Normal NEGATIVE [facility] Comment on above: Performed By: #### D RUGRPD #### [facility] [address] [address] [address] Lara Greene PPX Negative Normal NEGATIVE [facility] Comment on above: Performed By: #### D RUGRPD #### [facility] [address] [address] [address] Lara Greene TCA Negative Normal NEGATIVE [facility] Comment on above: Performed By: #### D RUGRPD #### [facility] [address] [place] [address] Dr. Lara Greene THC Positive Abnormal NEGATIVE [facility] Comment on above: Performed By: #### D RUGRPD #### [facility] [address] [place] [address] Dr. Lara Greene GLYCOHEMOGLOBIN A1Con 2022 ADA RECOMMENDATION SEE BELOW Normal [facility] Comment on above: Result Comment: ADA RECOMMENDED LIMIT 4.0 - 6.0 ADA THERAPEUTIC TARGET < 7.0 ACTION SUGGESTED > 7.0 Performed By: #### H BSANS #### [facility] [address] [place] [address] Dr. Lara Greene Glucose [Mass/Vol] 103 mg/dL Normal [facility] Comment on above: Performed By: #### H BSANS #### [facility] [address] [place] [address] Dr. Lara Greene HbA1c (Bld) [Mass fraction] 5.2 % Normal 4.5-6.2 [facility] Comment on above: Performed By: #### H BSANS #### [facility] [address] [place] [address] Dr. Lara Greene ARVIND BOX TEST PT SEND OUTo n 06-14-2022 SENT TO REF LAB 06/14/2022 Normal [facility] Comment on above: Performed By: #### H BSANS #### [facility] [address] [place] [address] Dr. Lara Greene TYPE AND SCREENon 06-14-2022 TYPE AND SCREEN Negative Normal [facility] Comment on above: Performed By: #### D RUGRPD #### [facility] [address] [place] [address] Dr. Lara Greene US PREG TVon 05-09-2022 US PREG TV EXAMINATION: US PREG TV HISTORY: Missed period COMPARISON: No relevant comparison available. FINDINGS: Transvaginal images Jessica intrauterine gestation Gestational sac: Normal morphology Yolk sac: 5.1 mm CRL: 2.61 cm, 9 weeks 3 days Heart rate: 157 bpm The uterus is normal in appearance, anteverted, anteflexed The ovaries are normal in appearance The cervix is closed measuring 4.0 cm in length Clinical age: 13 weeks 6 days Clinical SONU: 11/07/2022 Ultrasound age: 9 weeks 3 days Ultrasound SONU: 12/08/2022 IMPRESSION: Viable jessica intrauterine gestation measuring 9 weeks 3 days Electronically authenticated by: GERSON MELLO Date: 2022-05-09 07:07 [facility] PAP ACOG PANEL 2: 21 to 29on 02-02-2022 . . Normal [facility] Comment on above: Performed By: #### C BC #### [facility] [address] [place] [address] Dr. Lara Greene Age Gdln ACOG Testing - [facility] Comment on above: Performed By: #### C BC #### [facility] [address] [address] [address] Lara Greene DIAGNOSIS: Comment [facility] Comment on above: Result Comment: NEGA TIVE FOR INTRAEPITHELIAL LESION OR MALIGNANCY. Performed By: #### C BC #### [facility] [address] [place] [address] Dr. Lara Greene Methodology: Comment [facility] Comment on above: Result Comment: This liquid based ThinPrep(R) pap test was screened with the use of an image guided system. Performed By: #### C BC #### [facility] [address] [address] [address] Lara Greene Note: [facility] Comment on above: Result Comment: The Pap smear is a screening test designed to aid in the detection of premalignant and malignant conditions of the uterine cervix. It is not a diagnostic procedure and should not be used as the sole means of detecting cervical cancer. Both false-positive and false-negative reports do occur. . Performed By: #### C BC #### [facility] [address] [address] [address] Lara Greene Performed by: Comment Normal [facility] Comment on above: Result Comment: Arya Clement, [employer] Hand (ASCP) Performed By: #### C BC #### [facility] [address] [address] [address] Lara Greene Reflex Criteria: Comment Normal [facility] Comment on above: Result Comment: The HPV DNA reflex criteria were not met with this specimen result therefore, no HPV testing was performed. . Performed By: #### C BC #### [facility] [address] [address] [address] Lara Greene Specimen adequacy: Comment Normal [facility] Comment on above: Result Comment: Sati sfactory for evaluation. Endocervical and/or squamous metaplastic cells (endocervical component) are present. Performed By: #### C BC #### [facility] [address] [address] [address] Lara Greene XR TOES LT MIN 2 Von 05-30-2 022 XR TOES LT MIN 2 V EXAM: XR TOES LT MIN 2 V HISTORY: Acute great toe pain and swelling following fall. COMPARISON: None. TECHNIQUE: 3 views FINDINGS: IMPRESSION: Minimally angulated horizontal fracture of the first distal phalanx. Associated soft tissue edema. The remainder of the osseous structures are unremarkable. Joint spaces are unremarkable. Electronically authenticated by: GERSON STRICKLAND Date: 2021-09-19 17:39 Normal [facility] Drug Screen,Urineon 07-22-19 22 Amphetamine Screen,Urine Negative Normal Negative [facility] Comment on above: Performed By: #### U RDS #### [facility] [address] Barbiturate Screen,Urine Negative Normal Negative [facility] Comment on above: Performed By: #### U RDS #### [facility] [address] [place] [address] [place] Benzodiazepines Screen,Urine Negative Normal Negative [facility] Comment on above: Performed By: #### U RDS #### [address] Cannabinoid Screen,Urine Positive High Negative [facility] Comment on above: Result Comment: Thes e are unconfirmed results and should not be used for legal purposes. Drug Cut-Off Concentration: AMPH 1000 ng/mL AURY 200 ng/mL ELADIA 200 ng/mL COCM 300 ng/mL OP 300 ng/mL PCP 25 ng/mL THC 20 ng/mL PERFORMED BY: [place] [address] PATHOLOGIST FLARE BREAKER ED MUNOZ M.D. Performed By: #### U RDS #### [address] Cocaine Screen,Urine Negative Normal Negative [facility] Comment on above: Performed By: #### U RDS #### [address] Opiate Screen,Urine Negative Normal Negative [facility] Comment on above: Performed By: #### U RDS #### [address] Phencyclidine Screen,Urine Negative Normal Negative [facility] Comment on above: Performed By: #### U RDS #### [address] HCG,Urineon 07-21-2021 Beta HCG ( test) Ql (U) Negative Normal [facility] Comment on above: Result Comment: PERF ORMED BY: [place] [address] PATHOLOGIST FLARE BREAKER ED MUNOZ M.D. Performed By: #### U HCG #### [address] COVID-19 Antigenon 2 COVID-19 Antigen Healthcare Worker?: N Roseanna Reference Roseanna Reference Negative SARS-CoV+SARS-CoV-2 (COVID-19) Ag [Presence] in Respiratory specimen by Rapid immunoassay Negative for SARS Antigen by JOSSE COVID19 Blank Space Roseanna Disclaimer Negative results, from patients with symptom Roseanna Disclaimer onset beyond five days, should be treated as Roseanna Disclaimer presumptive and confirmation with a molecular Roseanna Disclaimer assay, if necessary, for patient management, Roseanna Disclaimer may be performed. Negative results do not rule Roseanna Disclaimer out COVID-19 and should not be used as the sole Roseanna Disclaimer basis for treatment or patient management Roseanna Disclaimer decisions, including infection control decisions. Roseanna Disclaimer Negative results should be considered in the Roseanna Disclaimer context of a patient's recent exposures, history Roseanna Disclaimer and the presence of clinical signs and symptoms Roseanna Disclaimer consistent with COVID-19. COVID19 Blank Space Roseanna Disclaimer The Roseanna SARS Antigen JOSSE does not differentiate Roseanna Disclaimer between SARS-CoV and SARS-CoV-2. COVID19 Blank Space Roseanna Disclaimer This test was developed and its performance Roseanna Disclaimer characteristic determined by [employer] and Roseanna Disclaimer validated at [facility]. This Roseanna Disclaimer test has not been FDA cleared or approved. This Roseanna Disclaimer test has been authorized by FDA under an Emergency Use Roseanna Disclaimer Authorization (EUA). This test has been validated Roseanna Disclaimer in accordance with the FDA's Guidance Document (Policy Roseanna Disclaimer for Diagnostics Testing in Laboratories Certified to Roseanna Disclaimer Perform High Complexity Testing under CLIA prior to Roseanna Disclaimer Emergency Use Authorization for Coronavirus Roseanna Disclaimer isease-2019 during the Public Health Emergency) Roseanna Disclaimer issued on July 24, 2019. This test is only authorized Roseanna Disclaimer for the duration of time the declaration that Roseanna Disclaimer circumstances exist justifying the authorization of Roseanna Disclaimer the emergency use of in vitro diagnostic tests for Roseanna Disclaimer detection of SARS-CoV-2 virus and/or diagnosis of Roseanna Disclaimer COVID-19 infection under section 564(b)(1) of the Roseanna Disclaimer Act, 21 U.S.C. 360bbb-3(b)(1), unless the Roseanna Disclaimer authorization is terminated or revoked sooner. PERFORMED BY: [place] [address] PATHOLOGIST FLARE BREAKER ED MUNOZ M.D. Normal [facility] Comment on above: Performed By: #### S OFIANEG, COVID-19 ROSEANNA #### [address] Roseanna Ag Negativeon 07-20-19 Roseanna Ag Negative Negative Normal Negative [facility] Comment on above: Result Comment: This is a duplicate Roseanna SARS Antigen (JOSSE) result to be used for statistical tracking purpose only. PERFORMED BY: [place] [address] PATHOLOGIST FLARE BREAKER ED MUNOZ M.D. Performed By: #### S OFIANEG, COVID-19 ROSEANNA #### [facility] [address] [place], [place] [id number] [facility] Vital Signs Date Time Vital Sign Value Performing Clinician Facility 07-22-2022 02:06-0400 Body weight 93.4416 kg PALAK ROMO [facility] Comment on above: Performed By: #### AFPMAT #### [facility] [address] [address] [address] Lara Greene 06-14-2021 12:30-0500 Body height 162.56 cm Chano Barron Other [facility] Other 06-14-2021 12:30-0500 Body mass index (BMI) [Ratio] 36.04 kg/m2 Chano Barron Other [facility] Other 06-14-2021 12:30-0500 Body weight 95.26 kg Chano Barron Other [facility] Other Encounters Encounter Date Encounter Type Care Provider Facility Start: 08-22-2023 End: 08-22-2023 ambulatory MELISSA JUSTICE Not Available Start: 07-17-2023 End: 07-17-2023 ambulatory MELISSA JUSTICE Not Available Start: 06-28-2023 End: 06-28-2023 ambulatory ANNE A FELTER Not Available Start: 06-26-2023 End: 06-26-2023 ambulatory MELISSA JUSTICE Not Available Start: 06-19-2023 End: 06-19-2023 ambulatory ANNE A FELTER Not Available Start: 03-29-2023 End: 03-29-2023 ambulatory MELISSA JUSTICE Not Available Start: 09-20-2022 ambulatory Diane Falcon Facility:[facility] Start: 08-25-2022 End: 08-26-[address] SAMUEL ATKINSON . Facility:[facility] Start: 08-16-2022 End: 08-16-[address] SAMUEL ATKINSON . Facility:[facility] Start: 07-26-2022 End: 07-27-[address] SAMUEL ATKINSON . Facility:[facility] Start: 07-20-2022 End: 07-21-[address] SAMUEL ATKINSON . Facility:[facility] Start: 06-14-2022 End: 06-15-[address] SAMUEL ATKINSON . Facility:[facility] Start: 05-08-2022 End: 05-09-[address] SAMUEL ATKINSON . Facility:[facility] Start: 01-27-2022 End: 01-27-[address] SAMUEL ATKINSON . Facility:[facility] Start: 12-06-2021 End: 12-07-2021 ambulatory PALAK ROMO Facility:[facility] Start: 11-01-2021 End: 11-02-[address] GERSON MELLO Facility:[facility] Start: 10-12-2021 End: 10-13-2021 ambulatory KAREN TONY Facility:[facility] Start: 09-21-2021 End: 09-21-2021 ambulatory Adalberto Cook Other [facility] Other Start: 09-21-2021 Telephone encounter Adalberto Cook [facility] [place] Start: 09-20-2021 End: 09-21-2021 ambulatory PALAK ROMO Facility:[facility] Start: 09-19-2021 End: 09-19-2021 ambulatory JORDON BRENNAN . Facility:[facility] Start: 06-14-2021 End: 06-14-2021 ambulatory Chano Barron Other [facility] Other Start: 06-14-2021 [facility] visit new patient Chano Barron [facility] Gastroenterology Immunizations Immunization Date Immunization Notes Care Provider Reji denton NEGATED: Highlighted row has not occurred!10-30-2019 influenza, seasonal, injectable Patient Objection Chano Connerkris Other [facility] Other Payers Date Payer Category Payer Unknown [id number] .16.84 [id number] 1992 Unknown [id number] .16.84 0.1.274664.3.579.2.593 1992 Unknown [id number] .16.84 0.1.737822.3.579.2.593 1992 Unknown [id number] .16.84 0.1.851097.3.579.2.593 1992 Unknown [id number] .16.84 0.1.216471.3.579.2.593 1992 Unknown [id number] .16.84 0.1.249687.3.579.2.593 1992 Unknown [id number] .16.84 0.1.642091.3.579.2.593 1992 Unknown [id number] 2.16.84 0.1.358787.3.579.2.593 1992 Unknown [id number] 2.16.84 0.1.499602.3.579.2.593 1992 Unknown [id number] 2.16.84 0.1.778626.3.579.2.593 1992 Unknown [id number] 2.16.84 0.1.670824.3.579.2.593 1992 Unknown [id number] 2.16.84 0.1.560195.3.579.2.593 1992 Unknown [id number] 2.16.84 0.1.164133.3.579.2.1259 1992 Unknown [id number] 2.16.84 0.1.761992.3.579.2.1259 1992 Unknown [id number] 2.16.84 0.1.908631.3.579.2.1259 1992 Unknown [id number] 2.16.84 0.1.871075.3.579.2.1259 1992 Unknown [id number] 2.16.84 0.1.891360.3.579.2.1259 1992 Unknown [id number] 2.16.840 .1.801919.3.579.2.1259 1959 Unknown [id number] 2.16. 840.1.860944.19 1959 Unknown [id number] 1959 Unknown [id number] Unknown [id number] 2.16.84 0.1.374376.3.579.2.593 Social History Date Type Detail Facility Unknown if ever smoked [facility] Other Sex Assigned At Sex Assigned At Bir th [facility] Other Clinical Note 12-07-2021 Note Date & Type Note Facility 12-07-2021 Note PROCEDURE: XR FOOT L T MIN 3 VIEWS HISTORY: Pain in left foot COMPARISON: XR foot left 11/01/2021 FINDINGS: BONES:Transverse fracture through base of first distal phalanx at the diametaphyseal junction; no displacement. Slight increased density of the fracture line consistent with ongoing bone healing. SOFT TISSUES:No visible soft tissue swelling. EFFUSION:None visible. OTHER: Negative. IMPRESSION: 1. Stable alignment and some bone healing of the first distal phalanx extra-articular fracture, but no significant change compared to 11/01/2021. Electronically authenticated by: ELIZA DIAMOND Date: 2021-12-07 09:03 [facility] Clinical Note 11-01-2021 Note Date & Type Note Facility 11-01-2021 Note PROCEDURE: XR FOOT L T MIN 3 VIEWS COMPARISON: 10/12/2021 HISTORY: Pain in left foot FINDINGS: BONES:Stable transverse extra-articular fracture base of the first distal phalanx. Interval increase in bone formation consistent with healing. No new fracture. No dislocation. SOFT TISSUES:Negative. No visible soft tissue swelling. EFFUSION:None visible. OTHER: Negative. IMPRESSION: Stable healing extra-articular fracture base of the first distal phalanx Electronically authenticated by: GERSON MELLO Date: 2021-11-01 19:20 [facility] Clinical Note 10-12-2021 Note Date & Type Note Facility 10-12-2021 Note PROCEDURE: XR FOOT L T MIN 3 VIEWS HISTORY: Pain in left foot ; follow-up left first toe fracture COMPARISON: XR foot left 09/20/2021 FINDINGS: BONES:Transverse fracture through base of first distal phalanx with minimal displacement. No appreciable increase in fracture line density or significant callus formation. SOFT TISSUES:No visible soft tissue swelling. EFFUSION:None visible. OTHER: Negative. IMPRESSION: 1. Stable alignment of first distal phalanx and likely ongoing changes of early bone healing. Electronically authenticated by: ELIZA DIAMOND Date: 2021-10-12 16:07 [facility] Clinical Note 09-20-2021 Note Date & Type Note Facility 09-20-2021 Note PROCEDURE: XR FOOT L T MIN 3 VIEWS COMPARISON: 09/19/2021 HISTORY: Pain in left foot FINDINGS: BONES:Stable transverse likely extra-articular fracture at the base of the first distal phalanx. No new fracture. No dislocation. SOFT TISSUES:Negative. No visible soft tissue swelling. EFFUSION:None visible. OTHER: Negative. IMPRESSION: Stable transverse extra-articular fracture base of the first distal Electronically authenticated by: GERSON MELLO Date: 2021-09-20 16:37 [facility] Evaluation note 06-14-2021 Note Date & Type Note Facility 06-14-2021 Evaluation note Encounter Date Diagnosis Assessment Notes May, Rectal pain (ICD-10 - K62.89) PATIENT STATES SHE WILL GET A SHARP STABBING PAIN WILL PROCEED WITH FLEX SIG. May, Constipation (ICD-10 - K59.00) PATIENT DOES STRAIN WITH BOWEL MOVEMENT. WILL START MIRALAX. WILL DO FLEX SIG AT THIS TIME. [facility] Other Evaluation note Note Date & Type Note Facility Evaluation note No Information [facility] Other History general Narrative - Reported Note Date & Type Note Facility History general Narrative - Reported Type Medical History ovarian cysts Surgical History ovarian cysts Surgical History polyp removal Surgical History wisdom teeth [facility] Other Summary Purpose Family History No Family History Records FoundNo Family History Records FoundNo Family History Records FoundNo Family History Records Found Advance Directives No Advanced Directives Records FoundNo Advanced Directives Records FoundNo Advanced Directives Records FoundNo Advanced Directives Records Found Additional Source Comments INFORMATION SOURCE (unrecogn ized section and content) DATE CREATED AUTHOR 07/29/2021 [facility] DATE CREATED AUTHOR AUTHOR'S ORGANIZ ATION 08/24/2022 [facility] DATE CREATED AUTHOR AUTHOR'S ORGANIZ ATION 09/06/2022 [facility] DATE CREATED AUTHOR AUTHOR'S ORGANIZ ATION 08/24/2023 [facility] EPIC REASON FOR VISIT (unrecogniz ed section and content) PATIENT HERE WITH COMPLAINTS OF RECTAL PAIN. PATIENT HAS SEEN DR. ORO IN THE PAST. PATIENT STATES SOMETHING SHE FEELS LIKE HAVING TO GO TO THE BATHROOM WILL HAVE A SHARP PAIN. PATIENT STATES WHEN GOING TO THE BATHROOM ITS PELLETS., PATIENT DID HAVE PREVIOUS ABOUT 10 YEARS AGO AND DID HAVE COLON POLYPSER notice FOR RECORDS PERTAINING TO PATIENTS WHO ARE OR HAVE BEEN ENROLLED IN A CHEMICAL DEPENDENCY/SUBSTANCEABUSE PROGRAM, SOME INFORMATION MAY BE OMITTED. This clinical summary was aggregated from multiple sources. Caution should be exercised in using it in the provision of clinical care. This summary normalizes information from multiple sources, and as a consequence, information in this document may materially change the coding, format and clinical context of patient data. In addition, data may be omitted in some cases. CLINICAL DECISIONS SHOULD BE BASED ON THE PRIMARY CLINICAL RECORDS. [facility] [employer] [facility]. provides no warranty or guarantee of the accuracy or completeness of information in this document.
== END 2024-03-10 14:58 | disposition home or self-care (01) ==
PROVIDERS: Emergency Provider Emergency Medicine; PCP Family Medicine
DX: M79.672 Pain in left foot (principal); Z87.891 Personal history of nicotine dependence
CPT/HCPCS: 73630; 93971; 99284

== ENCOUNTER 2024-07-02 11:15 | Emergency (ER) | payer OTHER, SELFPAY ==
[2024-07-02 11:27] VITALS: BP 142/80; PULSE 67; TEMP 36.9; O2SAT 100; BMI 38.4
--- OUTSIDE RECORDS SUMMARY | 2024-07-02 11:27 | XMS_ITS | CCD ---
Author Organization [facility] Care Team Providers Care Screen Tacker Name Role Phone Chano Barron Unavailable Adalberto [...] e KUNS, DR PASTRANA Primary Care Unavailable TUBAC, DR GERSON Aguilar Consulting Unavailable KUNAnt, DR [...] RENDON Attending Unavailable MELISSA RENDON Attending Unavailable NANE BURKETT Attending Unavailable MELISSA RENDON Attending Unavailable MELISSA RENDON Attending Unavailable Medications Current Medications Medication Drug Class(es) Dates Sig (Normalized) Sig (Original) polyethylene glycol 3350 44598 mg powder for oral solution (2 sources) [...] 08-25-2022 BASO # 0.0 103/ul Normal 0.0-0.1 [facility] Comment on above: Performed By: #### C BC #### [facility] [address] [address] [address] Lara Greene Basophils/100 WBC (Bld) 0.2 % Normal 0.2-2.0 [facility] Comment on above: Performed By: #### C BC #### [facility] [address] [place] [address] Dr. Lara Greene EO # 0.0 103/ul Normal 0.0-0.7 [facility] Comment on above: Performed By: #### C BC #### [facility] [address] [address] [address] Lara Greene Eosinophils/100 WBC (Bld) 0.1 % Critically low 0.9-7.0 [facility] Comment on above: Performed By: #### C BC #### [facility] [address] [address] [address] Lara Greene Erythrocyte distribution width (RBC) [Ratio] 12.4 % Normal 11.0-15.0 [facility] Comment on above: Performed By: #### C BC #### [facility] [address] [address] [address] Lara Greene Hematocrit (Bld) [Volume fraction] 31.4 % Critically low 36.0-48.0 [facility] Comment on above: Performed By: #### C BC #### [facility] [address] [place] [address] Dr. Lara Greene Hemoglobin (Bld) [Mass/Vol] 11.0 g/dL Critically low 12.0-16.0 [facility] Comment on above: Performed By: #### C BC #### [facility] [address] [place] [address] Dr. Lara Greene IG # 0.06 10e3/ul Critically high 0.00-0.03 [facility] Comment on above: Performed By: #### C BC #### [facility] [address] [place] [address] Dr. Lara Greene IG % 0.5 % Normal 0.0-0.5 [facility] Comment on above: Performed By: #### C BC #### [facility] [address] [place] [address] Dr. Lara Greene LYMPH # 1.9 103/ul Normal 1.2-3.8 [facility] Comment on above: Performed By: #### C BC #### [facility] [address] [place] [address] Dr. Lara Greene Lymphocytes/100 WBC (Bld) 16.0 % Critically low 20.5-60.0 [facility] Comment on above: Performed By: #### C BC #### [facility] [address] [place] [address] Dr. Lara Greene MANUAL DIFF REQ NO Normal [facility] Comment on above: Performed By: #### C BC #### [facility] [address] [place] [address] Dr. Lara Greene MCH (RBC) [Entitic mass] 32.5 pg Normal 26.7-34.0 [facility] Comment on above: Performed By: #### C BC #### [facility] [address] [place] [address] Dr. Lara Greene MCHC (RBC) [Mass/Vol] 35.0 g/dL Normal 29.9-35.2 [facility] Comment on above: Performed By: #### C BC #### [facility] [address] [place] [address] Dr. Lara Greene MCV (RBC) [Entitic vol] 92.9 fL Normal 81.0-99.0 [facility] Comment on above: Performed By: #### C BC #### [facility] [address] [place] [address] Dr. Lara Greene MONO # 0.5 103/ul Normal 0.3-0.8 [facility] Comment on above: Performed By: #### C BC #### [facility] [address] [place] [address] Dr. Lara Greene Monocytes/100 WBC (Bld) 4.3 % Normal 1.7-12.0 [facility] Comment on above: Performed By: #### C BC #### [facility] [address] [place] [address] Dr. Lara Greene NEUT # 9.2 103/ul Critically high 1.4-6.5 [facility] Comment on above: Performed By: #### C BC #### [facility] [address] [place] [address] Dr. Lara Greene Neutrophils/100 WBC (Bld) 78.9 % Critically high 43.0-75.0 [facility] Comment on above: Performed By: #### C BC #### [facility] [address] [place] [address] Dr. Lara Greene Platelet mean volume (Bld) [Entitic vol] 9.7 fL Normal 9.5-13.5 [facility] Comment on above: Performed By: #### C BC #### [facility] [address] [place] [address] Dr. Lara Greene PLT 219 103/ul Normal 150-450 [facility] Comment on above: Performed By: #### C BC #### [facility] [address] [place] [address] Dr. Lara Greene RBC 3.38 106/ul Critically low 4.20-5.40 [facility] Comment on above: Performed By: #### C BC #### [facility] [address] [place] [address] Dr. Lara Greene WBC 11.7 103/ul Critically high 4.0-11.0 [facility] Comment on above: Performed By: #### C BC #### [facility] [address] [place] [address] Dr. Lara Greene GLUCOSE - 1HRon 08-25-2022 Glucose [Mass/Vol] 137 mg/dL Critically high 74-[address] [facility] Comment on above: Performed By: #### G LU1HR #### [facility] [address] [place] [address] Dr. Lara Greene CBC AUTO DIFFon 08-16-2022 BASO # 0.0 103/ul Normal 0.0-0.1 [facility] Comment on above: Performed By: #### C BC #### [facility] [address] [place] [address] Dr. Lara Greene Basophils/100 WBC (Bld) 0.2 % Normal 0.2-2.0 [facility] Comment on above: Performed By: #### C BC #### [facility] [address] [place] [address] Dr. Lara Greene EO # 0.1 103/ul Normal 0.0-0.7 [facility] Comment on above: Performed By: #### C BC #### [facility] [address] [place] [address] Dr. Lara Greene Eosinophils/100 WBC (Bld) 0.6 % Critically low 0.9-7.0 [facility] Comment on above: Performed By: #### C BC #### [facility] [address] [place] [address] Dr. Lara Greene Erythrocyte distribution width (RBC) [Ratio] 12.5 % Normal 11.0-15.0 [facility] Comment on above: Performed By: #### C BC #### [facility] [address] [place] [address] Dr. Lara Greene Hematocrit (Bld) [Volume fraction] 33.8 % Critically low 36.0-48.0 [facility] Comment on above: Performed By: #### C BC #### [facility] [address] [place], [place] [id number] Dr. Lara Greene Hemoglobin (Bld) [Mass/Vol] 11.9 g/dL Critically low 12.0-16.0 [facility] Comment on above: Performed By: #### C BC #### [facility] [address] [place] [address] Dr. Lara Greene IG # 0.05 10e3/ul Critically high 0.00-0.03 [facility] Comment on above: Performed By: #### C BC #### [facility] [address] [place] [address] Dr. Lara Greene IG % 0.4 % Normal 0.0-0.5 [facility] Comment on above: Performed By: #### C BC #### [facility] [address] [place] [address] Dr. Lara Greene LYMPH # 2.2 103/ul Normal 1.2-3.8 [facility] Comment on above: Performed By: #### C BC #### [facility] [address] [place] [address] Dr. Lara Greene Lymphocytes/100 WBC (Bld) 18.8 % Critically low 20.5-60.0 [facility] Comment on above: Performed By: #### C BC #### [facility] [address] [place] [address] Dr. Lara Greene MANUAL DIFF REQ NO Normal [facility] Comment on above: Performed By: #### C BC #### [facility] [address] [place] [address] Dr. Lara Greene MCH (RBC) [Entitic mass] 31.8 pg Normal 26.7-34.0 [facility] Comment on above: Performed By: #### C BC #### [facility] [address] [place] [address] Dr. Lara Greene MCHC (RBC) [Mass/Vol] 35.2 g/dL Normal 29.9-35.2 [facility] Comment on above: Performed By: #### C BC #### [facility] [address] [place] [address] Dr. Lara Greene MCV (RBC) [Entitic vol] 90.4 fL Normal 81.0-99.0 [facility] Comment on above: Performed By: #### C BC #### [facility] [address] [place] [address] Dr. Lara Greene MONO # 0.7 103/ul Normal 0.3-0.8 [facility] Comment on above: Performed By: #### C BC #### [facility] [address] [place] [address] Dr. Lara Greene Monocytes/100 WBC (Bld) 6.3 % Normal 1.7-12.0 [facility] Comment on above: Performed By: #### C BC #### [facility] [address] [place] [address] Dr. Lara Greene NEUT # 8.7 103/ul Critically high 1.4-6.5 [facility] Comment on above: Performed By: #### C BC #### [facility] [address] [place] [address] Dr. Lara Greene Neutrophils/100 WBC (Bld) 73.7 % Normal 43.0-75.0 [facility] Comment on above: Performed By: #### C BC #### [facility] [address] [place] [address] Dr. Lara Greene Platelet mean volume (Bld) [Entitic vol] 9.9 fL Normal 9.5-13.5 [facility] Comment on above: Performed By: #### C BC #### [facility] [address] [place] [address] Dr. Lara Greene PLT 226 103/ul Normal 150-450 [facility] Comment on above: Performed By: #### C BC #### [facility] [address] [place] [address] Dr. Lara Greene RBC 3.74 106/ul Critically low 4.20-5.40 [facility] Comment on above: Performed By: #### C BC #### [facility] [address] [place] [address] Dr. Lara Greene WBC 11.8 103/ul Critically high 4.0-11.0 [facility] Comment on above: Performed By: #### C BC #### [facility] [address] [address] [address] Lara Greene CULTURE URINEon 08-16-2022 CULTURE URINE Culture Observations : NO GROWTH. Normal [facility] Comment on above: Performed By: #### D RUGRPD #### [facility] [address] [address] [address] Lara Greene UA (CLEAN/CATCH) CREATIVE SERVICES COORDINATOR/MICRO I F IND.on 08-16-2022 Bilirubin Ql (U) Negative Normal NEGATIVE [facility] Comment on above: Performed By: #### U ACSIND, UMICRO #### [facility] [address] [place] [address] Dr. Lara Greene Clarity (U) CLEAR Normal CLEAR [facility] Comment on above: Performed By: #### U ACSIND, UMICRO #### [facility] [address] [place] [address] Dr. Lara Greene Color (U) YELLOW Normal YELLOW [facility] Comment on above: Performed By: #### U ACSIND, UMICRO #### [facility] [address] [place] [address] Dr. Lara Greene Glucose Ql (U) Negative Normal NEGATIVE [facility] Comment on above: Performed By: #### U ACSIND, UMICRO #### [facility] [address] [place] [address] Dr. Lara Greene Hemoglobin Ql (U) LARGE Abnormal NEGATIVE [facility] Comment on above: Performed By: #### U ACSIND, UMICRO #### [facility] [address] [place] [address] Dr. Lara Greene Ketones Ql (U) Negative Normal NEGATIVE [facility] Comment on above: Performed By: #### U ACSIND, UMICRO #### [facility] [address] [place] [address] Dr. Lara Greene LEUKOCYTES Negative Normal NEGATIVE [facility] Comment on above: Performed By: #### U ACSIND, UMICRO #### [facility] [address] [address] [address] Lara Greene Nitrite Ql (U) Negative Normal NEGATIVE [facility] Comment on above: Performed By: #### U ACSDIMA UMICRO #### [facility] [address] [place] [address] Dr. Lara Greene pH (U) 7.0 [pH] Normal 5-9 [facility] Comment on above: Performed By: #### U ACSDIMA UMICRO #### [facility] [address] [place] [address] Dr. Lara Greene SPEC GRAVITY 1.020 Normal 1.005-<=1.025 [facility] Comment on above: Performed By: #### U MARIAH UMICRO #### [facility] [address] [place] [address] Dr. Lara Greene UA PROTEIN 30 mg/dl Abnormal NEGATIVE/ TRACE [facility] Comment on above: Performed By: #### U MARIAH UMICRO #### [facility] [address] [place] [address] Dr. Lara Greene UR MICRO IND INDICATED Normal [facility] Comment on above: Performed By: #### U MARIAH UMICRO #### [facility] [address] [place] [address] Dr. Lara Greene Urobilinogen Qn (U) 0.2 {Francisco'U}/dL Normal 0.2 - 1. 0 [facility] Comment on above: Performed By: #### U ACSDIMA UMICRO #### [facility] [address] [place] [address] Dr. Lara Greene URINE MICROSCOPIC ONLYon BACTERIA SMALL Abnormal NONE SEEN [facility] Comment on above: Performed By: #### U ACSDIMA UMICRO #### [facility] [address] [place] [address] Dr. Lara Greene Bacteria identified Cx Nom (U) INDICATED Normal [facility] Comment on above: Performed By: #### U ACSDIMA UMICRO #### [facility] [address] [place], [place] [id number] Dr. Lara Greene CA OX CRYSTALS RARE Normal [facility] Comment on above: Performed By: #### U ACSIND, UMICRO #### [facility] [address] [place] [address] Dr. Lara Greene CAST NONE SEEN Normal NONE SEEN [facility] Comment on above: Performed By: #### U ACSIND, UMICRO #### [facility] [address] [place] [address] Dr. Lara Greene Crystals LM Nom (Urine sed) SEEN Abnormal NONE SEEN [facility] Comment on above: Performed By: #### U ACSIND, UMICRO #### [facility] [address] [place] [address] Dr. Lara Greene Epithelial cells LM Ql (Urine sed) FEW Abnormal NONE SEEN /RARE [facility] Comment on above: Performed By: #### U ACSIND, UMICRO #### [facility] [address] [place] [address] Dr. Lara Greene MUCOUS NONE SEEN Normal NONE SEEN [facility] Comment on above: Performed By: #### U ACSIND, UMICRO #### [facility] [address] [place] [address] Dr. aLra Greene RBC 20-50 Abnormal 0-2 [facility] Comment on above: Performed By: #### U ACSIND, UMICRO #### [facility] [address] [place] [address] Dr. Lara Greeen WBC 0-2 Abnormal NONE SEEN [facility] Comment on above: Performed By: #### U ACSIND, UMICRO #### [facility] [address] [place] [address] Dr. Lara Greene US APPENDIXon 08-16-2022 US [...] GERSON MELLO Date: 2022-08-16 15:21 Normal [facility] US KIDNEYSon 08-16-2022 US KIDNEYS EXAM: US [...] EMIL SHIELDS Date: 2022-08-16 16:31 Normal [facility] US PREG CERVICAL LENGTHon US PREG CERVICAL LENGTH EXAMINATION: US PREG CERVICAL LENGTH HISTORY: Left sided abdominal pain COMPARISON: No relevant comparison available. FINDINGS: Closed cervix measuring 3.7 cm in length IMPRESSION: Closed cervix measuring 3.7 cm Electronically authenticated by: GERSON MELLO Date: 2022-08-16 15:20 Normal [facility] US PREG GROWTHon 08-16-2022 US PREG [...] by: GERSON MELLO Date: 2022-08-16 13:35 Normal [facility] US PREG PLACENTAon US PREG PLACENTA [...] by: GERSON MELLO Date: 2022-08-16 13:36 Normal [facility] US PREG ANATOMY SINGLEon US PREG [...] ELIZA DIAMOND Date: 2022-07-26 10:38 Normal [facility] AFP MATERNAL FOR SPINA BIFID Aon 07-22-2022 AFP MoM 0.72 Normal [facility] Comment on above: Performed By: #### A FPMAT #### [facility] [address] [address] [address] Lara Greene AFP Value 34.0 ng/mL Normal [facility] Comment on above: Performed By: #### A FPMAT #### [facility] [address] [address] [address] Lara Greene AFP, Serum for Spina Bifida Report Normal [facility] Comment on above: Performed By: #### A FPMAT #### [facility] [address] [address] [address] Lara Greene Comment Comment Normal [facility] Comment on above: Result Comment: Florentino Schrader, Ph.D., [facility] Director . References: Available Upon Request. . Multiples Of Median Cutoffs For AFP Elevations Jessica 2.5 Black 2.8 IDD 2.0 Twins 4.5 Abbreviation Definitions IDD - Insulin Dep Diabetes OSBR - Open Spina Bifida Risk . For further inquiries contact [employer] [facility] at [phone]. . This test was developed and its performance characteristics determined by [employer]. It has not been cleared or approved by the Food and Drug Administration. Performed By: #### A FPMAT #### [facility] [address] [address] [address] Lara Greene Gest Age Collection Date 19.9 weeks Normal [facility] Comment on above: Performed By: #### A FPMAT #### [facility] [address] [place] [address] Dr. Lara Greene Gestat, Age Based on LMP Normal [facility] Comment on above: Result Comment: Reca lculations are not recommended when gestational dating by LMP and ultrasound are within 10 days. Performed By: #### A FPMAT #### [facility] [address] [place] [address] Dr. Lara Greene Insulin Dep Diabetes No Normal [facility] Comment on above: Performed By: #### A FPMAT #### [facility] [address] [place] [address] Dr. Lara Greene Interpretation Comment Normal [facility] Comment on above: Result Comment: Inte [...] Customer Services to discuss available options. The [employer] recommends amniocentesis be offered to women age 35 and older. Performed By: #### A FPMAT #### [facility] [address] [place] [address] Dr. Lara Greene [age] Normal [facility] Comment on above: Performed By: #### A FPMAT #### [facility] [address] [place] [address] Dr. Lara Greene Multiple Gestation No Normal [facility] Comment on above: Performed By: #### A FPMAT #### [facility] [address] [place] [address] Dr. Lara Greene OS[place] [address] [facility] Comment on above: Performed By: #### A FPMAT #### [facility] [address] [place] [address] Dr. Lara Greene PDF . Normal [facility] Comment on above: Performed By: #### A FPMAT #### [facility] [address] [address] [address] Lara Greene Race Normal [facility] Comment on above: Performed By: #### A FPMAT #### [facility] [address] [address] [address] Lara Greene Test Results: Negative Normal [facility] Comment on above: Performed By: #### A FPMAT #### [facility] [address] [address] [address] Lara Greene HEP B SURFACE ANTIGEN SCREEN on 06-15-2022 HBsAg Screen Negative Normal Negative [facility] Comment on above: Performed By: #### H BSANS #### [facility] [address] [place] [address] Dr. Lara Greene HEPATITIS C VIRUS AB W/ REFL EX QUANTon 06-15-2022 HCV AB Non-Reactive Normal Non Reactive [facility] Comment on above: Performed By: #### H BSANS #### [facility] [address] [place] [address] Dr. Lara Greene Interpretation: Comment Normal [facility] Comment on above: Result Comment: Not infected with HCV unless early or acute infection is suspected (which may be delayed in an immunocompromised individual), or other evidence exists to indicate HCV infection. Performed By: #### H BSANS #### [facility] [address] [place] [address] Dr. Lara Greene HIV 1 AND 2 WITH REFLEXon HIV Screen 4th Generation wRfx Non-Reactive Normal Non Reactive [facility] Comment on above: Result Comment: HIV Negative HIV-1/HIV-2 antibodies and HIV-1 p24 antigen were NOT detected. There is no laboratory evidence of HIV infection. Performed By: #### H IV12 #### [facility] [address] [place] [address] Dr. Lara Greene RPR QUANTon 06-15-2022 Rapid Plasma Reagin, Quant Non-Reactive Normal NonRea<1:1 [facility] Comment on above: Result Comment: Plea se Note: This test does not meet current guidelines for screening and diagnosis of syphilis. This test is intended for following treatment response in patients being treated for syphilis infection. To screen for syphilis infection, a reflex cascade that includes both RPR and a treponema-specific assay should be utilized, such as Treponema pallidum (Syphilis) Screening [place] (091890) or Rapid Plasma Reagin (RPR) Test With Reflex to Quantitative RPR and Confirmatory Treponema pallidum Antibodies (748147). Performed By: #### H BSANS #### [facility] [address] [place] [address] Dr. Lara Greene RUBELLA AB IGGon 06-15-2022 Rubella Antibodies, IgG 2.27 index Normal Immune >0.99 [facility] Comment on above: Result Comment: Non- immune <0.90 Equivocal 0.90 - 0.99 Immune >0.99 Performed By: #### R UBIGG #### [facility] [address] [place] [address] Dr. Lara Greene CBC AUTO DIFFon 06-14-2022 BASO # 0.0 103/ul Normal 0.0-0.1 [facility] Comment on above: Performed By: #### D RUGRPD #### [facility] [address] [place] [address] Dr. Lara Greene Basophils/100 WBC (Bld) 0.2 % Normal 0.2-2.0 [facility] Comment on above: Performed By: #### D RUGRPD #### [facility] [address] [place] [address] Dr. Lara Greene EO # 0.1 103/ul Normal 0.0-0.7 [facility] Comment on above: Performed By: #### D RUGRPD #### [facility] [address] [place] [address] Dr. Lara Greene Eosinophils/100 WBC (Bld) 0.7 % Critically low 0.9-7.0 [facility] Comment on above: Performed By: #### D RUGRPD #### [facility] [address] [place] [address] Dr. Lara Greene Erythrocyte distribution width (RBC) [Ratio] 13.2 % Normal 11.0-15.0 [facility] Comment on above: Performed By: #### D RUGRPD #### [facility] [address] [place] [address] Dr. Lara Greene Hematocrit (Bld) [Volume fraction] 31.6 % Critically low 36.0-48.0 [facility] Comment on above: Performed By: #### D RUGRPD #### [facility] [address] [place] [address] Dr. Lara Greene Hemoglobin (Bld) [Mass/Vol] 11.3 g/dL Critically low 12.0-16.0 [facility] Comment on above: Performed By: #### D RUGRPD #### [facility] [address] [place] [address] Dr. Lara Greene IG # 0.03 10e3/ul Normal 0.00-0.03 [facility] Comment on above: Performed By: #### D RUGRPD #### [facility] [address] [place] [address] Dr. Lara Greene IG % 0.4 % Normal 0.0-0.5 [facility] Comment on above: Performed By: #### D RUGRPD #### [facility] [address] [place] [address] Dr. Lara Greene LYMPH # 2.1 103/ul Normal 1.2-3.8 [facility] Comment on above: Performed By: #### D RUGRPD #### [facility] [address] [place] [address] Dr. Lara Greene Lymphocytes/100 WBC (Bld) 24.6 % Normal 20.5-60.0 [facility] Comment on above: Performed By: #### D RUGRPD #### [facility] [address] [place] [address] Dr. Lara Greene MANUAL DIFF REQ NO Normal [facility] Comment on above: Performed By: #### D RUGRPD #### [facility] [address] [place] [address] Dr. Lara Greene MCH (RBC) [Entitic mass] 32.0 pg Normal 26.7-34.0 [facility] Comment on above: Performed By: #### D RUGRPD #### [facility] [address] [place] [address] Dr. Lara Greene MCHC (RBC) [Mass/Vol] 35.8 g/dL Critically high 29.9-35.2 [facility] Comment on above: Performed By: #### D RUGRPD #### [facility] [address] [place] [address] Dr. Lara Greene MCV (RBC) [Entitic vol] 89.5 fL Normal 81.0-99.0 [facility] Comment on above: Performed By: #### D RUGRPD #### [facility] [facility] [address] [place] [address] Dr. Lara Greene MONO # 0.4 103/ul Normal 0.3-0.8 [facility] Comment on above: Performed By: #### D RUGRPD #### [facility] [address] [place] [address] Dr. Lara Greene Monocytes/100 WBC (Bld) 4.8 % Normal 1.7-12.0 [facility] Comment on above: Performed By: #### D RUGRPD #### [facility] [address] [place] [address] Dr. Lara Greene NEUT # 5.8 103/ul Normal 1.4-6.5 [facility] Comment on above: Performed By: #### D RUGRPD #### [facility] [address] [place] [address] Dr. Lara Greene Neutrophils/100 WBC (Bld) 69.3 % Normal 43.0-75.0 [facility] Comment on above: Performed By: #### D RUGRPD #### [facility] [address] [place] [address] Dr. Lara Greene Platelet mean volume (Bld) [Entitic vol] 9.8 fL Normal 9.5-13.5 [facility] Comment on above: Performed By: #### D RUGRPD #### [facility] [address] [place] [address] Dr. Lara Greene PLT 217 103/ul Normal 150-450 [facility] Comment on above: Performed By: #### D RUGRPD #### [facility] [address] [place] [address] Dr. Lara Greene RBC 3.53 106/ul Critically low 4.20-5.40 [facility] Comment on above: Performed By: #### D RUGRPD #### [facility] [address] [place] [address] Dr. Lara Greene WBC 8.4 103/ul Normal 4.0-11.0 [facility] Comment on above: Performed By: #### D RUGRPD #### [facility] [address] [place] [address] Dr. Lara Greene CULTURE URINEon 06-14-2022 CULTURE URINE Culture Observations : LIGHT GROWTH OF MIXED GENITAL DURAN. NO POTENTIAL PATHOGENS SEEN. Normal [facility] Comment on above: Performed By: #### D RUGRPD #### [facility] [address] [place] [address] Dr. Lara Greene DRUG SCREEN RAPID (URINE)on 06-14-2022 AMP Negative Normal NEGATIVE [facility] Comment on above: Performed By: #### D RUGRPD #### [facility] [address] [place] [address] Dr. Lara Greene BAR Negative Normal NEGATIVE [facility] Comment on above: Performed By: #### D RUGRPD #### [facility] [address] [place] [address] Dr. Lara Greene BUP Negative Normal NEGATIVE [facility] Comment on above: Performed By: #### D RUGRPD #### [facility] [address] [place] [address] Dr. Lara Greene BZO Negative Normal NEGATIVE [facility] Comment on above: Performed By: #### D RUGRPD #### [facility] [address] [place] [address] Dr. Lara Greene CLEMENT Negative Normal NEGATIVE [facility] Comment on above: Performed By: #### D RUGRPD #### [facility] [address] [place] [address] Dr. Lara Greene CUT-OFFS SEE BELOW Normal [facility] Comment on above: Result Comment: AMP [...] ng/mL Performed By: #### D RUGRPD #### [facility] [address] [place] [address] Dr. Lara Greene DRUG CUT HEADER DRUG CLASS TEST SYST EM CUT-OFF CONCENTRATIONS ARE FOLLOWS: Normal [facility] Comment on above: Performed By: #### D RUGRPD #### [facility] [address] [place] [address] Dr. Lara Greene mAMP Negative Normal NEGATIVE [facility] Comment on above: Performed By: #### D RUGRPD #### [facility] [address] [place] [address] Dr. Lara Greene MTD Negative Normal NEGATIVE [facility] Comment on above: Performed By: #### D RUGRPD #### [facility] [address] [place] [address] Dr. Lara Greene OPI Negative Normal NEGATIVE [facility] Comment on above: Performed By: #### D RUGRPD #### [facility] [address] [place] [address] Dr. Lara Greene OXY Negative Normal NEGATIVE [facility] Comment on above: Performed By: #### D RUGRPD #### [facility] [address] [place] [address] Dr. Lara Greene PCP Negative Normal NEGATIVE [facility] Comment on above: Performed By: #### D RUGRPD #### [facility] [address] [address] [address] Lara Greene PPX Negative Normal NEGATIVE [facility] Comment on above: Performed By: #### D RUGRPD #### [facility] [address] [address] [address] Lara Greene TCA Negative Normal NEGATIVE [facility] Comment on above: Performed By: #### D RUGRPD #### [facility] [address] [place] [address] Dr. Lara Greene THC Positive Abnormal NEGATIVE [facility] Comment on above: Performed By: #### D RUGRPD #### [facility] [address] [place] [address] Dr. Lara Greene GLYCOHEMOGLOBIN A1Con 2022 ADA RECOMMENDATION SEE BELOW Normal [facility] Comment on above: Result Comment: ADA RECOMMENDED LIMIT 4.0 - 6.0 ADA THERAPEUTIC TARGET < 7.0 ACTION SUGGESTED > 7.0 Performed By: #### H BSANS #### [facility] [address] [place] [address] Dr. Lara Greene Glucose [Mass/Vol] 103 mg/dL Normal [facility] Comment on above: Performed By: #### H BSANS #### [facility] [address] [place] [address] Dr. Lara Greene HbA1c (Bld) [Mass fraction] 5.2 % Normal 4.5-6.2 [facility] Comment on above: Performed By: #### H BSANS #### [facility] [address] [place] [address] Dr. Lara Greene ARVIND BOX TEST PT SEND OUTo n 06-14-2022 SENT TO REF LAB 06/14/2022 Normal [facility] Comment on above: Performed By: #### H BSANS #### [facility] [address] [place] [address] Dr. Lara Greene TYPE AND SCREENon 06-14-2022 TYPE AND SCREEN Negative Normal [facility] Comment on above: Performed By: #### D RUGRPD #### [facility] [address] [place] [address] Dr. Lara Greene US PREG TVon 05-09-2022 [...] authenticated by: GERSON MELLO Date: 2022-05-09 07:07 [facility] PAP ACOG PANEL 2: 23 to 31on 02-02-2022 . . Normal [facility] Comment on above: Performed By: #### C BC #### [facility] [address] [place] [address] Dr. Lara Greene Age Gdln ACOG Testing - [facility] Comment on above: Performed By: #### C BC #### [facility] [address] [address] [address] Lara Greene DIAGNOSIS: Comment [facility] Comment on above: Result Comment: NEGA TIVE FOR INTRAEPITHELIAL LESION OR MALIGNANCY. Performed By: #### C BC #### [facility] [address] [place] [address] Dr. Lara Greene Methodology: Comment [facility] Comment on above: Result Comment: This liquid based ThinPrep(R) pap test was screened with the use of an image guided system. Performed By: #### C BC #### [facility] [address] [address] [address] Lara Greene Note: Comment [facility] Comment on above: Result Comment: The Pap smear is a screening test designed to aid in the detection of premalignant and malignant conditions of the uterine cervix. It is not a diagnostic procedure and should not be used as the sole means of detecting cervical cancer. Both false-positive and false-negative reports do occur. . Performed By: #### C BC #### [facility] [address] [address] [address] Lara Greene Performed by: Comment Normal [facility] Comment on above: Result Comment: Arya Clement, Steam Press Tender (ASCP) Performed By: #### C BC #### [facility] [address] [address] [address] Lara Greene Reflex Criteria: Comment Normal [facility] Comment on above: Result Comment: The HPV DNA reflex criteria were not met with this specimen result therefore, no HPV testing was performed. . Performed By: #### C BC #### [facility] [address] [address] [address] Lara Greene Specimen adequacy: Comment Normal [facility] Comment on above: Result Comment: Sati sfactory for evaluation. Endocervical and/or squamous metaplastic cells (endocervical component) are present. Performed By: #### C BC #### [facility] [address] [address] [address] Lara Greene XR TOES LT MIN [...] GERSON STRICKLAND Date: 2021-09-19 17:39 Normal [facility] Drug Screen,Urineon 07-22-19 22 Amphetamine Screen,Urine Negative Normal Negative [facility] Comment on above: Performed By: #### U RDS #### [facility] [address] Barbiturate Screen,Urine Negative Normal Negative [facility] Comment on above: Performed By: #### U RDS #### [facility] [address] [place] [address] [place] Benzodiazepines Screen,Urine Negative Normal Negative [facility] Comment on above: Performed By: #### U RDS #### [address] Cannabinoid Screen,Urine Positive High Negative [facility] Comment on above: Result Comment: Thes e are unconfirmed results and should not be used for legal purposes. Drug Cut-Off Concentration: AMPH 1000 ng/mL AURY 200 ng/mL ELADIA 200 ng/mL COCM 300 ng/mL OP 300 ng/mL PCP 25 ng/mL THC 20 ng/mL PERFORMED BY: [place] [address] PATHOLOGIST HOSE SUSPENDER CUTTER ED MUNOZ M.D. Performed By: #### U RDS #### [address] Cocaine Screen,Urine Negative Normal Negative [facility] Comment on above: Performed By: #### U RDS #### [address] Opiate Screen,Urine Negative Normal Negative [facility] Comment on above: Performed By: #### U RDS #### [address] Phencyclidine Screen,Urine Negative Normal Negative [facility] Comment on above: Performed By: #### U RDS #### [address] HCG,Urineon 07-21-2021 Beta HCG ( test) Ql (U) Negative Normal [facility] Comment on above: Result Comment: PERF ORMED BY: [place] [address] PATHOLOGIST HOSE SUSPENDER CUTTER ED MUNOZ M.D. Performed By: #### U HCG #### [address] COVID-19 Antigenon 2 COVID-19 Antigen Healthcare [...] its performance Roseanna Disclaimer characteristic determined by [employer] and Roseanna Disclaimer validated at [facility]. This Roseanna Disclaimer test has not been [...] is terminated or revoked sooner. PERFORMED BY: [place] [address] PATHOLOGIST HOSE SUSPENDER CUTTER ED MUNOZ M.D. Normal [facility] Comment on above: Performed By: #### S OFIANEG, COVID-19 ROSEANNA #### [address] Roseanna Ag Negativeon 07-20-19 Roseanna Ag Negative Negative Normal Negative [facility] Comment on above: Result Comment: This is a duplicate Roseanna SARS Antigen (JOSSE) result to be used for statistical tracking purpose only. PERFORMED BY: [place] [address] PATHOLOGIST HOSE SUSPENDER CUTTER ED MUNOZ M.D. Performed By: #### S OFIANEG, COVID-19 ROSEANNA #### [facility] [address] [place], [place] [id number] [facility] Vital Signs Date Time Vital Sign Value Performing Clinician Facility 07-22-2022 02:06-0400 Body weight 93.4416 kg PALAK ROMO [facility] Comment on above: Performed By: #### AFPMAT #### [facility] [address] [address] [address] Lara Greene 06-14-2021 12:30-0500 Body height 162.56 cm Chano Barron Other [facility] Other 06-14-2021 12:30-0500 Body mass index (BMI) [Ratio] 36.04 kg/m2 Chano Barron Other [facility] Other 06-14-2021 12:30-0500 Body weight 95.26 kg Chano Barron Other [facility] Other Encounters Encounter Date Encounter Type Care [...] 09-21-2021 End: 09-21-2021 ambulatory Adalberto Cook Other [facility] Other Start: 09-21-2021 Telephone encounter Adalberto Cook [facility] Family Medicine [place] Start: 09-20-2021 End: 09-21-2021 ambulatory PALAK ROMO Facility:[facility] Start: 09-19-2021 End: 09-19-2021 ambulatory JORDON BRENNAN . Facility:[facility] Start: 06-14-2021 End: 06-14-2021 ambulatory Chano Barron Other [facility] Other Start: 06-14-2021 [facility] visit new patient Chano Barron [facility] Gastroenterology Immunizations Immunization Date Immunization Notes Care Provider Reji denton NEGATED: Highlighted row has not occurred!10-30-2019 influenza, seasonal, injectable Patient Objection Chano Connerkris Other [facility] [employer] Other Payers Date Payer Category Payer Unknown [id number] .16.84 [id number] 1992 Unknown [id number] .16.84 [id number] 1992 Unknown [id number] .16.84 0.1.030902.3.579.2.593 1992 Unknown [id number] .16.84 0.1.978889.3.579.2.593 1992 Unknown [id number] .16.84 0.1.348888.3.579.2.593 1992 Unknown [id number] .16.84 0.1.741830.3.579.2.593 1992 Unknown [id number] .16.84 0.1.302197.3.579.2.593 1992 Unknown [id number] 2.16.84 0.1.640891.3.579.2.593 1992 Unknown [id number] 2.16.84 0.1.550219.3.579.2.593 1992 Unknown [id number] 2.16.84 0.1.242590.3.579.2.593 1992 Unknown [id number] 2.16.84 0.1.027561.3.579.2.593 1992 Unknown [id number] 2.16.84 0.1.513897.3.579.2.593 1992 Unknown [id number] 2.16.84 0.1.091433.3.579.2.1259 1992 Unknown [id number] 2.16.84 0.1.831137.3.579.2.1259 1992 Unknown [id number] 2.16.84 0.1.859361.3.579.2.1259 1992 Unknown [id number] 2.16.84 0.1.271629.3.579.2.1259 1992 Unknown [id number] 2.16.84 0.1.214798.3.579.2.1259 1992 Unknown [id number] 2.16.840 .1.721711.3.579.2.1259 1959 Unknown [id number] 2.16. 840.1.225458.19 1959 Unknown [id number] 1959 Unknown [id number] Unknown [id number] 2.16.84 0.1.157570.3.579.2.593 Social History Date Type Detail Facility Unknown if ever smoked [facility] Other Sex Assigned At Sex Assigned At Bir th [employer] Other Clinical Note 12-07-2021 Note Date & [...] authenticated by: ELIZA DIAMOND Date: 2021-12-07 09:03 [facility] Clinical Note 11-01-2021 Note Date & [...] by: GERSON MELLO Date: 2021-11-01 19:20 [facility] Clinical Note 10-12-2021 Note Date & Type [...] by: ELIZA DIAMOND Date: 2021-10-12 16:07 [facility] Clinical Note 09-20-2021 Note Date & Type [...] by: GERSON MELLO Date: 2021-09-20 16:37 [facility] Evaluation note 06-14-2021 Note Date & Type Note Facility 06-14-2021 Evaluation note Encounter Date Diagnosis Assessment Notes May, Rectal pain (ICD-10 - K62.89) PATIENT STATES SHE WILL GET A SHARP STABBING PAIN WILL PROCEED WITH FLEX SIG. May, Constipation (ICD-10 - K59.00) PATIENT DOES STRAIN WITH BOWEL MOVEMENT. WILL START MIRALAX. WILL DO FLEX SIG AT THIS TIME. [facility] Other Evaluation note Note Date & Type Note Facility Evaluation note No Information CodeRyte Other History general Narrative - Reported Note Date & Type Note Facility History general Narrative - Reported Type Medical History ovarian cysts Surgical History ovarian cysts Surgical History polyp removal Surgical History wisdom teeth [facility] Other Summary Purpose Family History No Family History Records FoundNo Family History Records FoundNo Family History Records FoundNo Family History Records Found Advance Directives No Advanced Directives Records FoundNo Advanced Directives Records FoundNo Advanced Directives Records FoundNo Advanced Directives Records Found Additional Source Comments INFORMATION SOURCE (unrecogn ized section and content) DATE CREATED AUTHOR 07/29/2021 [facility] DATE CREATED AUTHOR AUTHOR'S ORGANIZ ATION 08/24/2022 [facility] DATE CREATED AUTHOR AUTHOR'S ORGANIZ ATION 09/06/2022 [facility] DATE CREATED AUTHOR AUTHOR'S ORGANIZ ATION 08/24/2023 [facility] EPIC REASON FOR VISIT (unrecogniz [...] BE BASED ON THE PRIMARY CLINICAL RECORDS. [facility] [employer] [facility]. provides no warranty or guarantee of the accuracy or completeness of information in this document.
--- NOTE | 2024-07-02 11:46 | ED.GENADUL1 ---
HPI HPI - General Adult General Stated complaint: NECK STIFFNESS Time Seen by Provider: 07/02/24 11:17 Source: patient Mode of arrival: walk-in Limitations: no limitations History of Present Illness HPI narrative: Patient presents to ED complaining of neck pain. She said she has bilateral neck pain down into her shoulders. She said this started on Sunday she woke up and thinks she slept on her neck wrong. She had pain throughout the weekend and today it seemed worse. She said she had an appointment today with a chiropractor who did some adjustments but she said it did not really help. No numbness or tingling in her arms no weakness in her arms. She said the pain does increase when she lifts her arm over her head or tries to lift something over her head. She had to leave work today because she was unable to fully complete her job. Patient did not try any medication for the pain. She has not been using heating pads. No other plaints this time no fevers no nausea no vomiting. Related Data Previous Rx's ?Medication ?Instructions ?Recorded cyclobenzaprine 10 mg tablet 10 mg PO TID #14 tabs 07/02/24 hydrocodone 5 mg-acetaminophen 325 1 tab PO Q6H PRN pain #10 tabs 07/02/24 mg tablet Allergies Allergy/AdvReac Type Severity Reaction Status Date / Time Latex, Natural Rubber Allergy Unknown Abdominal Verified 07/02/24 11:27 Pain Opioid HPI Opioid Management Most Recent Opioid Data: Last Pain Scale 3 03/10/24 12:39 03/10/24 Urine Cannabinoids Positive (.) A 11/20/22 03:20 11/20/22 Ur Phencyclidine Scrn Negative (NEGATIVE) 11/20/22 05:20 11/20/22 Review of Systems ROS Status of ROS 10 or more systems reviewed and unremarkable except as noted in history and below [facility] Medical History (Updated 07/02/24 @ 11:38 by Flori Mahan DO) Ureteral stent present ?Z96.0 - Presence of urogenital implants (ICD-10) Shingles (2019) ?B02.9 - Zoster without complications (ICD-10) HPV (human papilloma virus) infection ?B97.7 - Papillomavirus as the cause of diseases classified elsewhere (ICD-10) Back pain ?M54.9 - Dorsalgia, unspecified (ICD-10) Depression ?F32.A - Depression, unspecified (ICD-10) Bronchitis ?J40 - Bronchitis, not specified as acute or chronic (ICD-10) Restless leg ?G25.81 - Restless legs syndrome (ICD-10) Seasonal allergies ?J30.2 - Other seasonal allergic rhinitis (ICD-10) GERD (gastroesophageal reflux disease) ?K21.9 - Gastro-esophageal reflux disease without esophagitis (ICD-10) Heartburn ?R12 - Heartburn (ICD-10) Activity intolerance ?R68.89 - Other general symptoms and signs (ICD-10) Colon polyps ?K63.5 - Polyp of colon (ICD-10) Renal colic on left side ?N23 - Unspecified renal colic (ICD-10) CAMPBELL (acute kidney injury) ?N17.9 - Acute kidney failure, unspecified (ICD-10) Acute unilateral obstructive uropathy ?N13.9 - Obstructive and reflux uropathy, unspecified (ICD-10) Hydronephrosis, left ?N13.30 - Unspecified hydronephrosis (ICD-10) Kidney stones ?N20.0 - Calculus of kidney (ICD-10) Surgical History (Updated 11/16/22 @ 10:52 by Bina Barreto) S/P cystoscopy with ureteral stent placement (~10/2022) ?Z96.0 - Presence of urogenital implants (ICD-10) History of colonoscopy ?Z98.890 - Other specified postprocedural states (ICD-10) Family History (Updated 11/16/22 @ 10:32 by Bina Barreto) Other Family history of Alzheimer's disease Family history of diabetes mellitus Family history of heart disease Family history of hypertension Family history of stroke Social History (Updated 11/16/22 @ 10:24 by Bina Barreto) Within the past year, how often did you have a drink containing alcohol: never Within the past year, how often did you have six or more drinks on one occasion: never Score interpretation: A score less than 3 is consistent with normal alcohol consumption. Smoking status: Former smoker Nicotine containing products detail: CANNABIS Non-prescribed substance use: cannabis (any form) Non-prescribed substance use details: SMOKES 3X A DAY FOR 15 YEARS Previous occupational history: [employer] Highest level of school completed/degree received: high school graduate Little interest or pleasure in doing things: not at all Feeling down, depressed, or hopeless: not at all Exam Narrative Exam Narrative: General: alert, no acute distress Cardiovascular: regular rate and rhythm, normal peripheral perfusion. Respiratory: Lungs CTA, respirations non labored. Extremities: no deformity, no trauma. Neurological: oriented x 4, LOC appropriate for age. Tenderness to palpation bilateral paraspinal muscles and bilateral trapezius muscles seems worse on the right. Pain with rotation of her neck and with engaging the trapezius muscles or stretching. Normal distal pulses and sensation and corn husker strength. Normal biceps flexion and tricep extension strength. Constitutional Vital Signs, click to edit/add: Last Vital Signs Temp 98.5 F 07/02/24 11:27 Pulse 67 07/02/24 11:27 Resp 18 07/02/24 11:27 BP 142/80 H 07/02/24 11:27 Pulse Ox 100 07/02/24 11:27 O2 Del Method Room Air 07/02/24 11:27 Course Vital Signs Vital signs: Vital Signs Temperature 98.5 F 07/02/24 11:27 Pulse Rate 67 07/02/24 11:27 Respiratory Rate 18 07/02/24 11:27 Blood Pressure 142/80 H 07/02/24 11:27 Pulse Oximetry 100 07/02/24 11:27 Oxygen Delivery Method Room Air 07/02/24 11:27 Temperature 98.5 F 07/02/24 11:27 Pulse Rate 67 07/02/24 11:27 Respiratory Rate 18 07/02/24 11:27 Blood Pressure 142/80 H 07/02/24 11:27 Pulse Oximetry 100 07/02/24 11:27 Oxygen Delivery Method Room Air 07/02/24 11:27 Medical Decision Making MDM Narrative Medical decision making narrative: Most likely trapezius muscle spasm and strain. Most likely slept wrong. No acute trauma. No neurological deficit. Patient will be given pain medicine and muscle relaxer here and sent home with a prescription for both of those things as well. Patient was instructed to use heat on her neck to help with the pain gentle stretching and mobility exercises. Follow-up with chiropractor return to ED if worsening symptoms. Patient is comfortable care plan for home. Differential Diagnosis Differential Diagnosis: Muscle strain sprain trapezius muscle spasms Discharge Plan Discharge Clinical Impression: Spasm of both trapezius muscles Patient Disposition: Home, Self-Care Time of Disposition Decision: 11:38 Condition: Good Mode of Transportation: Private Vehicle Prescriptions / Home Meds: New cyclobenzaprine 10 mg tablet 10 mg PO TID Qty: 14 0RF hydrocodone-acetaminophen 5-325 mg tablet 1 tab PO Q6H PRN (Reason: pain) Qty: 10 0RF Print Language: Botswanan Instructions: Muscle Spasm (ED) Referrals: VICTORIANO RINCON [Primary Care Provider] - 1 week
[2024-07-02] MEDS: KETOROLAC TROMETHAMINE 60 MG/2 ML VIAL IM (11:52)
[2024-07-02] MEDS: ORPHENADRINE 60 MG/ 2 ML VIAL IM (11:52)
== END 2024-07-02 11:54 | disposition home or self-care (01) ==
PROVIDERS: Emergency Provider Emergency Medicine; PCP Family Medicine
DX: M62.830 Muscle spasm of back (principal); Z87.891 Personal history of nicotine dependence
CPT/HCPCS: 96372; 99284; J1885; J2360

== ENCOUNTER 2025-02-08 16:00 | Emergency (ER) | payer OTHER, SELFPAY ==
--- OUTSIDE RECORDS SUMMARY | 2017-04-18 07:56 | XMS_ITS | Continuity of Care Document ---
Author Organization [facility] Address [address] [place] [address] Phone Care Team Providers Care Mold Release Worker Name Role Phone Tylor Joshi MD Unavailable Unavailable Procedures Procedure Date IMMUNIZATION ADMIN FLU VAC NO PRSV 4 PAN 3 YRS+ Advance Directives Directive Yes / No Effective Date File Name No Information Encounters Encounter Description Practice Location Reason(s) For Visit Diagnoses Date Provider Providers Copied on Encounter [facility], [address] [place] [address], [id number], tel:[phone] [facility] No Information Adi Snider. [address] [place] [address], [id number], [place]. tel:[phone] [facility], [address] [place] [address], [id number], tel:[phone] Aureliano PATEL No Information Visci DO Sj. [address] [place] [address], [id number], [place]. tel:[phone] Family History Family Member Type Diagnosis Age At Onset No Information Immunizations Vaccine Date Status Comments Influenza virus vaccine, injectable, quadrivalent, split virus, preservative free, 3 years or older Fluarix, Flulaval or Fluzone Quad [id number] administered Source: New Immuniza tion Record Payers Payer name Insurance type Covered libertarian ID Authoriza tion(s) No Information Social History Type Description Quantity Date Captured Comments Sex Female Smoking Status No Information Chief Complaint And Reason For Visit No Information Reason For Referral Reason For Referral No Information History Of Present Illness Encounter Date Complaint History Of Prese nt Illness No Information Functional Status Date Functional Assessmen t No Information Instructions Date Instruction Additional Infor mation No Information Assessments Type Assessment Date No Information Patient Care Teams Name Effective Dates (start - stop) Status Members No Information
--- OUTSIDE RECORDS SUMMARY | 2025-02-08 16:05 | XMS_ITS | Clinical Summary ---
Author Organization [facility] Address [address] [place] [address] Care Team Providers Care Fire Control Technician B Name Role Phone Luischase Adalberto Gerard JUAREZ Primary Care Provider [phone] Allergies Active Allergy Reactions Criticality Noted Date Comments Latex 10/04/2022 Medications MV-Min-Fe Fum-FA-DHA ( 1 PO) Take 1 each by mouth in the morning. Active esomeprazole (NexIUM) [address] capsule 1 capsule 1 (one) time each day at the same time Active Myrbetriq 25 MG 24 hr tablet 11/27/2022 Active oxybutynin XL (Ditropan-XL) 5 MG 24 hr tablet TAKE 1 TABLET BY MOUTH EVERY DAY FOR STENT PAIN *MAX DAILY DOSE IS 10MG* 12/06/2022 Active citalopram (CeleXA) 20 MG tabletIndication s:Follow-up encounter involving medication,Depre ssion, unspecified depression type, depression TAKE 1 TABLET BY MOUTH EVERY DAY IN THE MORNING 30 tablet 5 11/06/2023 Active venlafaxine XR (Effexor XR) 37.5 MG 24 hr capsuleIndicatio ns:Follow-up encounter involving medication,Depre ssion, unspecified depression type, depression TAKE 1 CAPSULE (37.5 MG) BY MOUTH IN THE MORNING DO NOT CRUSH OR CHEW 30 capsule 5 11/06/2023 Active Hospital, Clinic, or Other Facility Administered Medication Ordered Dose Route Frequency Start Date End Date Status Levonorgestrel intrauterine deviceIndications:Encounter for insertion of Mirena IUD IU Daily 07/17/2023 Active Active Problems Problem Noted Date Diagnosed Date Calculus of kidney 10/16/2022 Family History Medical History Relation Name Comments Diabetes Father Hypertension Father Breast cancer Father's Sister blood clot of leg Maternal Grandfather Diabetes Mother Hypertension Mother Thyroid disease Mother's Sister blood clot of leg Mother's Sister Relation Name Status Comments Brother (5) Daughter Alive Father Alive Father's Sister Maternal Grandfather Mother Alive Mother's Sister Son Alive Social History Tobacco Use Types Packs/Day Years Used Date Smoking Tobacco: Never Tobacco Cessation:Counseling Given: Not Answered Alcohol Use Standard Drinks/Week Comments Never 0 (1 standard drink = 0.6 oz pur e alcohol) Caffeine: 1-2 cups/day pop Education Answer Date Recorded What is the highest level of school you have completed or the highest degree you have received? High school graduate 10/02/2022 Comments No Sex and Gender Information Value Date Recorded Sex Assigned at Not on file Legal Sex Female 7:18 PM EDT Gender Identity Not on file Sexual Orientation Not on file Occupation Industry Job Start Date Job End Date Not on file Not on file Not on file Not on file Last Filed Vital Signs Vital Sign Reading Time Taken Comments Blood Pressure 118/68 08/22/2023 4:31 PM EDT Pulse - - Temperature - - Respiratory Rate - - Oxygen Saturation - - Inhaled Oxygen Concentration - - Weight 95.7 kg (211 lb) 08/22/2023 4:31 PM EDT Height 160 cm (5' 3 ) 02/07/2023 10:27 AM EDT Body Mass Index 37.38 02/07/2023 10:27 AM EDT Plan of Treatment Not on file Insurance [employer] Care Teams Fire Control Technician B Relationship Specialty Start Date End Date Adalberto Cook DO PCP - General Family Medicine 10/04/22
--- OUTSIDE RECORDS SUMMARY | 2025-02-08 16:05 | XMS_ITS | Encounter Summary ---
Author Organization [facility] Address [address] [place] [address] Care Team Providers Care Shredded Filler Cutter Operator Name Role Phone Adalberto Cook DO Primary Care Provider [phone] Kailey Raymond Unavailable Encounter Details Date Type Department Care Team (Late st Contact Info) Description 10/03/2022 Abstract [facility] [address] [address] Chandu Hernandez DO [address] [facility] [address] Sergo Willis, [facility] Social History Tobacco Use Types Packs/Day Years Used Date Smoking Tobacco: Never Alcohol Use Standard Drinks/Week Comments Never 0 (1 standard drink = 0.6 oz pur e alcohol) Caffeine: 1-2 cups/day pop Education Answer Date Recorded What is the highest level of school you have completed or the highest degree you have received? High school graduate 10/02/2022 Comments Yes Sex and Gender Information Value Date Recorded Sex Assigned at Not on file Legal Sex Female 7:18 PM EDT Gender Identity Not on file Sexual Orientation Not on file Occupation Industry Job Start Date Job End Date Not on file Not on file Not on file Not on file documented as of this encounter Plan of Treatment Not on file documented as of this encounter Visit Diagnoses Not on filedocumented in this encounter Care Teams Shredded Filler Cutter Operator Relationship Specialty Start Date End Date Adalberto Cook DO PCP - General Family Medicine 10/04/22 Kailey Raymond PA [address] [place] [address] [address] [place], [facility] PCP - [facility] 07/23/23 documented as of this encounter
--- OUTSIDE RECORDS SUMMARY | 2025-02-08 16:05 | XMS_ITS | Clinical Summary ---
Author Organization [facility] Address [address] [facility]. [place] [id number] Phone Care Team Providers Care Chiller Operator Name Role Phone Unavailable Primary Care Provider Unavailabl e Social History Tobacco Use Types Packs/Day Years Used Date Smoking Tobacco: Never Assessed Comments Unknown Sex and Gender Information Value Date Recorded Sex Assigned at Not on file Legal Sex Female 8:54 PM EST Gender Identity Not on file Sexual Orientation Not on file Plan of Treatment Not on file
--- OUTSIDE RECORDS SUMMARY | 2025-02-08 16:05 | XMS_ITS | Encounter Summary ---
Author Organization [facility] Address [address] [place] [address] Care Team Providers Care Staffing Clerk Name Role Phone Adalberto Cook DO Primary Care Provider [phone] Kailey Raymond Unavailable Encounter Details Date Type Department Care Team (Late st Contact Info) Description 10/31/2022 Abstract [facility] [address] [place] [address] Chandu Hernandez DO [address] [facility] [address] Sergo Willis, [facility]11 Social History Tobacco Use Types Packs/Day Years [...] on filedocumented in this encounter Care Teams Staffing Clerk Relationship Specialty Start Date End Date Adalberto Cook DO PCP - General Family Medicine 10/04/22 Kailey Raymond PA [address] [place] [address] Dr [place], [facility]11 PCP - [facility] 07/23/23 documented as of this encounter
[2025-02-08 16:06] VITALS: BP 131/83; PULSE 79; TEMP 37.1; O2SAT 100; BMI 34.5
--- OUTSIDE RECORDS SUMMARY | 2025-02-08 16:06 | XMS_ITS | Encounter Summary ---
Author Organization [facility] Address [address] [facility] [place] [address] Care Team Providers Care Operation Supervisor Name Role Phone Adalberto Cook DO Primary Care Provider [phone] Kailey Raymond Unavailable Encounter Details Date Type Department Care Team (Late st Contact Info) Description 11/09/2022 Abstract [facility] [address] [place] [address] Kailey Raymond PA [address] [facility] [address] [place], [facility]11 Social History Tobacco Use Types Packs/Day [...] on filedocumented in this encounter Care Teams Operation Supervisor Relationship Specialty Start Date End Date Adalberto Cook DO PCP - General Family Medicine 10/04/22 Kailey Raymond PA [address] [place] [address] Dr [place], [place] [address] PCP - [facility] 07/23/23 documented as of this encounter
--- OUTSIDE RECORDS SUMMARY | 2025-02-08 16:06 | XMS_ITS | Encounter Summary ---
Author Organization [facility] Address [address] [place] [address] Care Team Providers Care Color Finisher Name Role Phone Adalberto Cook DO Primary Care Provider [phone] Kailey Raymond Unavailable Encounter Details Date Type Department Care Team (Late st Contact Info) Description 10/31/2022 Abstract [facility] [address] [address] Chandu Hernandez DO [address] [facility] [address] Sergo Willis, [facility]11 [...] on filedocumented in this encounter Care Teams Color Finisher Relationship Specialty Start Date End Date Adalberto Cook DO PCP - General Family Medicine 10/04/22 Kailey Raymond PA [address] [place] [address] Dr [place], [facility]11 PCP - [facility] 07/23/23 documented as of this encounter
--- OUTSIDE RECORDS SUMMARY | 2025-02-08 16:06 | XMS_ITS | CCD ---
Author Organization [facility] Care Team Providers Care Legislative Director Name Role Phone Chano Barron Unavailable Adalberto [...] BAKER Admitting Unavailabl e KARASIK ., DR BAEKR Consulting Unavailabl e KARASIK ., DR BAKER Attending Unavailabl e KUNS, DR PASTRANA Primary Care Unavailable MADRAS, DR GERSON Aguilar Consulting Unavailable KUNAnt, DR [...] Sig (Normalized) Sig (Original) polyethylene glycol 3350 73608 mg powder for oral solution (2 sources) [...] 08-25-2022 BASO # 0.0 103/ul Normal 0.0-0.1 [facility] Comment on above: Performed By: #### C BC #### [facility] [address] [address] [address] Lara Greene Basophils/100 WBC (Bld) 0.2 % Normal 0.2-2.0 [facility] Comment on above: Performed By: #### C BC #### [facility] [address] [place] [address] Dr. Lara Greene EO # 0.0 103/ul Normal 0.0-0.7 [facility] Comment on above: Performed By: #### C BC #### [facility] [address] [address] [address] Lara Greene Eosinophils/100 WBC (Bld) 0.1 % Critically low 0.9-7.0 [facility] Comment on above: Performed By: #### C BC #### [facility] [address] [address] [address] Lara Greene Erythrocyte distribution width (RBC) [Ratio] 12.4 % Normal 11.0-15.0 [facility] Comment on above: Performed By: #### C BC #### [facility] [address] [address] [address] Lara Greene Hematocrit (Bld) [Volume fraction] 31.4 % Critically low 36.0-48.0 [facility] Comment on above: Performed By: #### C BC #### [facility] [address] [place] [address] Dr. Lara Greene Hemoglobin (Bld) [Mass/Vol] 11.0 g/dL Critically low 12.0-16.0 [facility] Comment on above: Performed By: #### C BC #### [facility] [address] [place] [address] Dr. Lara Greene IG # 0.06 10e3/ul Critically high 0.00-0.03 [facility] Comment on above: Performed By: #### C BC #### [facility] [address] [place] [address] Dr. Lara Greene IG % 0.5 % Normal 0.0-0.5 [facility] Comment on above: Performed By: #### C BC #### [facility] [address] [place] [address] Dr. Lara Greene LYMPH # 1.9 103/ul Normal 1.2-3.8 [facility] Comment on above: Performed By: #### C BC #### [facility] [address] [place] [address] Dr. Lara Greene Lymphocytes/100 WBC (Bld) 16.0 % Critically low 20.5-60.0 [facility] Comment on above: Performed By: #### C BC #### [facility] [address] [place] [address] Dr. Lara Greene MANUAL DIFF REQ NO Normal [facility] Comment on above: Performed By: #### C BC #### [facility] [address] [place] [address] Dr. Lara Greene MCH (RBC) [Entitic mass] 32.5 pg Normal 26.7-34.0 [facility] Comment on above: Performed By: #### C BC #### [facility] [address] [place] [address] Dr. Lara Greene MCHC (RBC) [Mass/Vol] 35.0 g/dL Normal 29.9-35.2 [facility] Comment on above: Performed By: #### C BC #### [facility] [address] [place] [address] Dr. Lara Greene MCV (RBC) [Entitic vol] 92.9 fL Normal 81.0-99.0 [facility] Comment on above: Performed By: #### C BC #### [facility] [address] [place] [address] Dr. Lara Greene MONO # 0.5 103/ul Normal 0.3-0.8 [facility] Comment on above: Performed By: #### C BC #### [facility] [address] [place] [address] Dr. Lara Greene Monocytes/100 WBC (Bld) 4.3 % Normal 1.7-12.0 [facility] Comment on above: Performed By: #### C BC #### [facility] [address] [place] [address] Dr. Lara Greene NEUT # 9.2 103/ul Critically high 1.4-6.[address] [facility] Comment on above: Performed By: #### C BC #### [facility] [address] [place] [address] Dr. Lara Greene Neutrophils/100 WBC (Bld) 78.9 % Critically high 43.0-75.0 [facility] Comment on above: Performed By: #### C BC #### [facility] [address] [place] [address] Dr. Lara Greene Platelet mean volume (Bld) [Entitic vol] 9.7 fL Normal 9.5-13.5 [facility] Comment on above: Performed By: #### C BC #### [facility] [address] [place] [address] Dr. Lara Greene PLT 219 103/ul Normal 150-450 [facility] Comment on above: Performed By: #### C BC #### [facility] [address] [place] [address] Dr. Lara Greene RBC 3.38 106/ul Critically low 4.20-5.[address] [facility] Comment on above: Performed By: #### C BC #### [facility] [address] [place] [address] Dr. Lara Greene WBC 11.7 103/ul Critically high 4.0-11.0 [facility] Comment on above: Performed By: #### C BC #### [facility] [address] [place] [address] Dr. Lara Greene GLUCOSE - 1HRon 08-25-2022 Glucose [Mass/Vol] 137 mg/dL Critically high 74-106 [facility] Comment on above: Performed By: #### G LU1HR #### [facility] [address] [place] [address] Dr. Lara Greene CBC AUTO DIFFon 08-16-2022 BASO # 0.0 103/ul Normal 0.0-0.1 [facility] Comment on above: Performed By: #### C BC #### [facility] [address] [place] [address] Dr. Lara Greene Basophils/100 WBC (Bld) 0.2 % Normal 0.2-2.0 [facility] Comment on above: Performed By: #### C BC #### [facility] [address] [place] [address] Dr. Lara Greene EO # 0.1 103/ul Normal 0.0-0.7 [facility] Comment on above: Performed By: #### C BC #### [facility] [address] [place] [address] Dr. Lara Greene Eosinophils/100 WBC (Bld) 0.6 % Critically low 0.9-7.0 [facility] Comment on above: Performed By: #### C BC #### [facility] [address] [place] [address] Dr. Lara Greene Erythrocyte distribution width (RBC) [Ratio] 12.5 % Normal 11.0-15.0 [facility] Comment on above: Performed By: #### C BC #### [facility] [address] [place] [address] Dr. Lara Greene Hematocrit (Bld) [Volume fraction] 33.8 % Critically low 36.0-48.0 [facility] Comment on above: Performed By: #### C BC #### [facility] [address] [place], [place] [id number] Dr. Lara Greene Hemoglobin (Bld) [Mass/Vol] 11.9 g/dL Critically low 12.0-16.0 [facility] Comment on above: Performed By: #### C BC #### [facility] [address] [place] [address] Dr. Lara Greene IG # 0.05 10e3/ul Critically high 0.00-0.03 [facility] Comment on above: Performed By: #### C BC #### [facility] [address] [place] [address] Dr. Lara Greene IG % 0.4 % Normal 0.0-0.5 [facility] Comment on above: Performed By: #### C BC #### [facility] [address] [place] [address] Dr. Lara Greene LYMPH # 2.2 103/ul Normal 1.2-3.8 [facility] Comment on above: Performed By: #### C BC #### [facility] [address] [place] [address] Dr. Lara Greene Lymphocytes/100 WBC (Bld) 18.8 % Critically low 20.5-60.0 [facility] Comment on above: Performed By: #### C BC #### [facility] [address] [place] [address] Dr. Lara Greene MANUAL DIFF REQ NO Normal [facility] Comment on above: Performed By: #### C BC #### [facility] [address] [place] [address] Dr. Lara Greene MCH (RBC) [Entitic mass] 31.8 pg Normal 26.7-34.0 [facility] Comment on above: Performed By: #### C BC #### [facility] [address] [place] [address] Dr. Lara Greene MCHC (RBC) [Mass/Vol] 35.2 g/dL Normal 29.9-35.2 [facility] Comment on above: Performed By: #### C BC #### [facility] [address] [place] [address] Dr. Lara Greene MCV (RBC) [Entitic vol] 90.4 fL Normal 81.0-99.0 [facility] Comment on above: Performed By: #### C BC #### [facility] [address] [place] [address] Dr. Lara Greene MONO # 0.7 103/ul Normal 0.3-0.8 [facility] Comment on above: Performed By: #### C BC #### [facility] [address] [place] [address] Dr. Lara Greene Monocytes/100 WBC (Bld) 6.3 % Normal 1.7-12.0 [facility] Comment on above: Performed By: #### C BC #### [facility] [address] [place] [address] Dr. Lara Greene NEUT # 8.7 103/ul Critically high 1.4-6.[address] [facility] Comment on above: Performed By: #### C BC #### [facility] [address] [place] [address] Dr. Lara Greene Neutrophils/100 WBC (Bld) 73.7 % Normal 43.0-75.0 [facility] Comment on above: Performed By: #### C BC #### [facility] [address] [place] [address] Dr. Lara Greene Platelet mean volume (Bld) [Entitic vol] 9.9 fL Normal 9.5-13.5 [facility] Comment on above: Performed By: #### C BC #### [facility] [address] [place] [address] Dr. Lara Greene PLT 226 103/ul Normal 150-450 [facility] Comment on above: Performed By: #### C BC #### [facility] [address] [place] [address] Dr. Lara Greene RBC 3.74 106/ul Critically low 4.20-5.[address] [facility] Comment on above: Performed By: #### C BC #### [facility] [address] [place] [address] Dr. Lara Greene WBC 11.8 103/ul Critically high 4.0-11.0 [facility] Comment on above: Performed By: #### C BC #### [facility] [address] [address] [address] Lara Greene CULTURE URINEon 08-16-2022 CULTURE URINE Culture Observations : NO GROWTH. Normal [facility] Comment on above: Performed By: #### D RUGRPD #### [facility] [address] [address] [address] Lara Greene UA (CLEAN/CATCH) MARKETING ASSOCIATE/MICRO I F IND.on 08-16-2022 Bilirubin Ql (U) Negative Normal NEGATIVE [facility] Comment on above: Performed By: #### U ACSIND, UMICRO #### [facility] [address] [place] [address] Dr. Lara Greene Clarity (U) CLEAR Normal CLEAR [facility] Comment on above: Performed By: #### U ACSIND, UMICRO #### [facility] [address] [place] [address] Dr. Lara Greene Color (U) YELLOW Normal YELLOW [facility] Comment on above: Performed By: #### U ACSIND, UMICRO #### [facility] [address] [place] [address] Dr. Lara Greene Glucose Ql (U) Negative Normal NEGATIVE [facility] Comment on above: Performed By: #### U ACSIND, UMICRO #### [facility] [address] [place] [address] Dr. Lara Greene Hemoglobin Ql (U) LARGE Abnormal NEGATIVE [facility] Comment on above: Performed By: #### U ACSIND, UMICRO #### [facility] [address] [place] [address] Dr. Lara Greene Ketones Ql (U) Negative Normal NEGATIVE [facility] Comment on above: Performed By: #### U ACSIND, UMICRO #### [facility] [address] [place] [address] Dr. Lara Greene LEUKOCYTES Negative Normal NEGATIVE [facility] Comment on above: Performed By: #### U ACSIND, UMICRO #### [facility] [address] [address] [address] Lara Greene Nitrite Ql (U) Negative Normal NEGATIVE [facility] Comment on above: Performed By: #### U ACSDIMA UMICRO #### [facility] [address] [place] [address] Dr. Lara Greene pH (U) 7.0 [pH] Normal 5-9 [facility] Comment on above: Performed By: #### U ACSDIMA UMICRO #### [facility] [address] [place] [address] Dr. Lara Greene SPEC GRAVITY 1.020 Normal 1.005-<=1.[address] [facility] Comment on above: Performed By: #### U MARIAH UMICRO #### [facility] [address] [place] [address] Dr. Lara Greene UA PROTEIN 30 mg/dl Abnormal NEGATIVE/ TRACE [facility] Comment on above: Performed By: #### U MARIAH UMICRO #### [facility] [address] [place] [address] Dr. Lara Greene UR MICRO IND INDICATED Normal [facility] Comment on above: Performed By: #### U MARIAH UMICRO #### [facility] [address] [place] [address] Dr. Lara Greene Urobilinogen Qn (U) 0.2 {Francisco'U}/dL Normal 0.2 - 1. 0 [facility] Comment on above: Performed By: #### U ACSDIMA UMICRO #### [facility] [address] [place] [address] Dr. Lara Greene URINE MICROSCOPIC ONLYon BACTERIA SMALL Abnormal NONE SEEN [facility] Comment on above: Performed By: #### U ACSDIMA UMICRO #### [facility] [address] [place] [address] Dr. Lara Greene Bacteria identified Cx Nom (U) INDICATED Normal [facility] Comment on above: Performed By: #### U ACSDIMA UMICRO #### [facility] [address] [place], [place] [id number] Dr. Lara Greene CA OX CRYSTALS RARE Normal [facility] Comment on above: Performed By: #### U ACSIND, UMICRO #### [facility] [address] [place] [address] Dr. Lara Greene CAST NONE SEEN Normal NONE SEEN [facility] Comment on above: Performed By: #### U ACSIND, UMICRO #### [facility] [address] [place] [address] Dr. Lara Greene Crystals LM Nom (Urine sed) SEEN Abnormal NONE SEEN [facility] Comment on above: Performed By: #### U ACSIND, UMICRO #### [facility] [address] [place] [address] Dr. Lara Greene Epithelial cells LM Ql (Urine sed) FEW Abnormal NONE SEEN /RARE [facility] Comment on above: Performed By: #### U ACSIND, UMICRO #### [facility] [address] [place] [address] Dr. Lara Greene MUCOUS NONE SEEN Normal NONE SEEN [facility] Comment on above: Performed By: #### U ACSIND, UMICRO #### [facility] [address] [place] [address] Dr. Lara Greene RBC 20-50 Abnormal 0-2 [facility] Comment on above: Performed By: #### U ACSIND, UMICRO #### [facility] [address] [place] [address] Dr. Lara Greene WBC 0-2 Abnormal NONE SEEN [facility] Comment on above: Performed By: #### U ACSIND, UMICRO #### [facility] [address] [place] [address] Dr. Lara Greene US APPENDIXon 08-16-2022 US [...] GERSON MELLO Date: 2022-08-16 15:21 Normal [facility] US KIDNEYSon 08-16-2022 US KIDNEYS EXAM: [...] EMIL SHIELDS Date: 2022-08-16 16:31 Normal [facility] US PREG CERVICAL LENGTHon US PREG CERVICAL LENGTH EXAMINATION: US PREG CERVICAL LENGTH HISTORY: Left sided abdominal pain COMPARISON: No relevant comparison available. FINDINGS: Closed cervix measuring 3.7 cm in length IMPRESSION: Closed cervix measuring 3.7 cm Electronically authenticated by: GERSON MELLO Date: 2022-08-16 15:20 Normal [facility] US PREG GROWTHon 08-16-2022 US PREG GROWTH [...] by: GERSON MELLO Date: 2022-08-16 13:35 Normal [facility] US PREG PLACENTAon US PREG PLACENTA EXAMINATION: [...] by: GERSON MELLO Date: 2022-08-16 13:36 Normal [facility] US PREG ANATOMY SINGLEon US PREG ANATOMY [...] ELIZA DIAMOND Date: 2022-07-26 10:38 Normal [facility] AFP MATERNAL FOR SPINA BIFID Aon 07-22-2022 AFP MoM 0.72 Normal [facility] Comment on above: Performed By: #### A FPMAT #### [facility] [address] [address] [address] Lara Greene AFP Value 34.0 ng/mL Normal [facility] Comment on above: Performed By: #### A FPMAT #### [facility] [address] [address] [address] Lara Greene AFP, Serum for Spina Bifida Report Normal [facility] Comment on above: Performed By: #### A FPMAT #### [facility] [address] [address] [address] Lara Greene Comment Comment Normal [facility] Comment on above: Result Comment: Florentino Schrader, Ph.D., [facility] Director . References: Available Upon Request. . Multiples Of Median Cutoffs For AFP Elevations Jessica 2.5 Black 2.8 IDD 2.0 Twins 4.5 Abbreviation Definitions IDD - Insulin Dep Diabetes OSBR - Open Spina Bifida Risk . For further inquiries contact [employer] at [phone]. . This test was developed and its performance characteristics determined by [employer]. It has not been cleared or approved by the Food and Drug Administration. Performed By: #### A FPMAT #### [facility] [address] [address] [address] Lara Greene Gest Age Collection Date 19.9 weeks Normal [facility] Comment on above: Performed By: #### A FPMAT #### [facility] [address] [place] [address] Dr. Lara Greene Gestat, Age Based on LMP Normal [facility] Comment on above: Result Comment: Reca lculations are not recommended when gestational dating by LMP and ultrasound are within 10 days. Performed By: #### A FPMAT #### [facility] [address] [place] [address] Dr. Lara Greene Insulin Dep Diabetes No Normal [facility] Comment on above: Performed By: #### A FPMAT #### [facility] [address] [place] [address] Dr. Lara Greene Interpretation Comment Normal [facility] Comment on above: Result Comment: Inte rpretation: [...] Customer Services to discuss available options. The [employer] recommends amniocentesis be offered to women age 35 and older. Performed By: #### A FPMAT #### [facility] [address] [place] [address] Dr. Lara Greene [age] Normal [facility] Comment on above: Performed By: #### A FPMAT #### [facility] [address] [place] [address] Dr. Lara Greene Multiple Gestation No Normal [facility] Comment on above: Performed By: #### A FPMAT #### [facility] [address] [place] [address] Dr. Lara Greene OS[place] [address] [facility] Comment on above: Performed By: #### A FPMAT #### [facility] [address] [place] [address] Dr. Lara Greene PDF . Normal [facility] Comment on above: Performed By: #### A FPMAT #### [facility] [address] [address] [address] Lara Greene Race Normal [facility] Comment on above: Performed By: #### A FPMAT #### [facility] [address] [address] [address] Lara Greene Test Results: Negative Normal [facility] Comment on above: Performed By: #### A FPMAT #### [facility] [address] [address] [address] Lara Greene HEP B SURFACE ANTIGEN SCREEN on 06-15-2022 HBsAg Screen Negative Normal Negative [facility] Comment on above: Performed By: #### H BSANS #### [facility] [address] [place] [address] Dr. Lara Greene HEPATITIS C VIRUS AB W/ REFL EX QUANTon 06-15-2022 HCV AB Non-Reactive Normal Non Reactive [facility] Comment on above: Performed By: #### H BSANS #### [facility] [address] [place] [address] Dr. Lara Greene Interpretation: Comment Normal [facility] Comment on above: Result Comment: Not infected with HCV unless early or acute infection is suspected (which may be delayed in an immunocompromised individual), or other evidence exists to indicate HCV infection. Performed By: #### H BSANS #### [facility] [address] [place] [address] Dr. Lara Greene HIV 1 AND 2 WITH REFLEXon HIV Screen 4th Generation wRfx Non-Reactive Normal Non Reactive [facility] Comment on above: Result Comment: HIV Negative HIV-1/HIV-2 antibodies and HIV-1 p24 antigen were NOT detected. There is no laboratory evidence of HIV infection. Performed By: #### H IV12 #### [facility] [address] [place] [address] Dr. Lara Greene RPR QUANTon 06-15-2022 Rapid Plasma Reagin, Quant Non-Reactive Normal NonRea<1:1 [facility] Comment on above: Result Comment: Plea se Note: This test does not meet current guidelines for screening and diagnosis of syphilis. This test is intended for following treatment response in patients being treated for syphilis infection. To screen for syphilis infection, a reflex cascade that includes both RPR and a treponema-specific assay should be utilized, such as Treponema pallidum (Syphilis) Screening [place] (727580) or Rapid Plasma Reagin (RPR) Test With Reflex to Quantitative RPR and Confirmatory Treponema pallidum Antibodies (710665). Performed By: #### H BSANS #### [facility] [address] [place] [address] Dr. Lara Greene RUBELLA AB IGGon 06-15-2022 Rubella Antibodies, IgG 2.27 index Normal Immune >0.99 [facility] Comment on above: Result Comment: Non- immune <0.90 Equivocal 0.90 - 0.99 Immune >0.99 Performed By: #### R UBIGG #### [facility] [address] [place] [address] Dr. Lara Greene CBC AUTO DIFFon 06-14-2022 BASO # 0.0 103/ul Normal 0.0-0.1 [facility] Comment on above: Performed By: #### D RUGRPD #### [facility] [address] [place] [address] Dr. Lara Greene Basophils/100 WBC (Bld) 0.2 % Normal 0.2-2.0 [facility] Comment on above: Performed By: #### D RUGRPD #### [facility] [address] [place] [address] Dr. Lara Greene EO # 0.1 103/ul Normal 0.0-0.7 [facility] Comment on above: Performed By: #### D RUGRPD #### [facility] [address] [place] [address] Dr. Lara Greene Eosinophils/100 WBC (Bld) 0.7 % Critically low 0.9-7.0 [facility] Comment on above: Performed By: #### D RUGRPD #### [facility] [address] [place] [address] Dr. Lara Greene Erythrocyte distribution width (RBC) [Ratio] 13.2 % Normal 11.0-15.0 [facility] Comment on above: Performed By: #### D RUGRPD #### [facility] [address] [place] [address] Dr. Lara Greene Hematocrit (Bld) [Volume fraction] 31.6 % Critically low 36.0-48.0 [facility] Comment on above: Performed By: #### D RUGRPD #### [facility] [address] [place] [address] Dr. Lara Greene Hemoglobin (Bld) [Mass/Vol] 11.3 g/dL Critically low 12.0-16.0 [facility] Comment on above: Performed By: #### D RUGRPD #### [facility] [address] [place] [address] Dr. Lara Greene IG # 0.03 10e3/ul Normal 0.00-0.03 [facility] Comment on above: Performed By: #### D RUGRPD #### [facility] [address] [place] [address] Dr. Lara Greene IG % 0.4 % Normal 0.0-0.5 [facility] Comment on above: Performed By: #### D RUGRPD #### [facility] [address] [place] [address] Dr. Lara Greene LYMPH # 2.1 103/ul Normal 1.2-3.8 [facility] Comment on above: Performed By: #### D RUGRPD #### [facility] [address] [place] [address] Dr. Lara Greene Lymphocytes/100 WBC (Bld) 24.6 % Normal 20.5-60.0 [facility] Comment on above: Performed By: #### D RUGRPD #### [facility] [address] [place] [address] Dr. Lara Greene MANUAL DIFF REQ NO Normal [facility] Comment on above: Performed By: #### D RUGRPD #### [facility] [address] [place] [address] Dr. Lara Greene MCH (RBC) [Entitic mass] 32.0 pg Normal 26.7-34.0 [facility] Comment on above: Performed By: #### D RUGRPD #### [facility] [address] [place] [address] Dr. Lara Greene MCHC (RBC) [Mass/Vol] 35.8 g/dL Critically high 29.9-35.2 [facility] Comment on above: Performed By: #### D RUGRPD #### [facility] [address] [place] [address] Dr. Lara Greene MCV (RBC) [Entitic vol] 89.5 fL Normal 81.0-99.0 [facility] Comment on above: Performed By: #### D RUGRPD #### [facility] [address] [place] [address] Dr. Lara Greene MONO # 0.4 103/ul Normal 0.3-0.8 [facility] Comment on above: Performed By: #### D RUGRPD #### [facility] [address] [place] [address] Dr. Lara Greene Monocytes/100 WBC (Bld) 4.8 % Normal 1.7-12.0 [facility] Comment on above: Performed By: #### D RUGRPD #### [facility] [address] [place] [address] Dr. Lara Greene NEUT # 5.8 103/ul Normal 1.4-6.5 [facility] Comment on above: Performed By: #### D RUGRPD #### [facility] [address] [place] [address] Dr. Lara Greene Neutrophils/100 WBC (Bld) 69.3 % Normal 43.0-75.0 [facility] Comment on above: Performed By: #### D RUGRPD #### [facility] [address] [place] [address] Dr. Lara Greene Platelet mean volume (Bld) [Entitic vol] 9.8 fL Normal 9.5-13.5 [facility] Comment on above: Performed By: #### D RUGRPD #### [facility] [address] [place] [address] Dr. Lara Greene PLT 217 103/ul Normal 150-450 [facility] Comment on above: Performed By: #### D RUGRPD #### [facility] [address] [place] [address] Dr. Lara Greene RBC 3.53 106/ul Critically low 4.20-5.40 [facility] Comment on above: Performed By: #### D RUGRPD #### [facility] [address] [place] [address] Dr. Lara Greene WBC 8.4 103/ul Normal 4.0-11.0 [facility] Comment on above: Performed By: #### D RUGRPD #### [facility] [address] [place] [address] Dr. Lara Greene CULTURE URINEon 06-14-2022 CULTURE URINE Culture Observations : LIGHT GROWTH OF MIXED GENITAL DURAN. NO POTENTIAL PATHOGENS SEEN. Normal [facility] Comment on above: Performed By: #### D RUGRPD #### [facility] [address] [place] [address] Dr. Lara Greene DRUG SCREEN RAPID (URINE)on 06-14-2022 AMP Negative Normal NEGATIVE [facility] Comment on above: Performed By: #### D RUGRPD #### [facility] [address] [place] [address] Dr. Lara Greene BAR Negative Normal NEGATIVE [facility] Comment on above: Performed By: #### D RUGRPD #### [facility] [address] [place] [address] Dr. Lara Greene BUP Negative Normal NEGATIVE [facility] Comment on above: Performed By: #### D RUGRPD #### [facility] [address] [place] [address] Dr. Lara Greene BZO Negative Normal NEGATIVE [facility] Comment on above: Performed By: #### D RUGRPD #### [facility] [address] [place] [address] Dr. Lara Greene CLEMENT Negative Normal NEGATIVE [facility] Comment on above: Performed By: #### D RUGRPD #### [facility] [address] [place] [address] Dr. Lara Greene CUT-OFFS SEE BELOW Normal [facility] Comment on above: Result Comment: AMP (Amphetamine): 500ng/mL, BAR (Barbituates): 200 ng/mL, BZO (Benzodiazepines): 150 ng/mL, BUP (Buprenorphine): 10 ng/mL, CLEMENT (Cocaine): 150 ng/mL, mAMP (Methamphetamine): 500 ng/mL, MTD (Methadone): 200 ng/mL, OPI (Opiates): 100 ng/mL, OXY (Oxycodone): 100 ng/mL, PCP (Phencyclidine): 25 ng/mL, PPX (Propoxyphene): 300 ng/mL, THC (Cannabinoids): 50 ng/mL, TCA (Trycyclic Antidepressants): 300 ng/mL Performed By: #### D RUGRPD #### [facility] [address] [place] [address] Dr. Lara Greene DRUG CUT HEADER DRUG CLASS TEST SYST EM CUT-OFF CONCENTRATIONS ARE FOLLOWS: Normal [facility] Comment on above: Performed By: #### D RUGRPD #### [facility] [address] [place] [address] Dr. Lara Greene mAMP Negative Normal NEGATIVE [facility] Comment on above: Performed By: #### D RUGRPD #### [facility] [address] [place] [address] Dr. Lara Greene MTD Negative Normal NEGATIVE [facility] Comment on above: Performed By: #### D RUGRPD #### [facility] [address] [place] [address] Dr. Lara Greene OPI Negative Normal NEGATIVE [facility] Comment on above: Performed By: #### D RUGRPD #### [facility] [address] [place] [address] Dr. Lara Greene OXY Negative Normal NEGATIVE [facility] Comment on above: Performed By: #### D RUGRPD #### [facility] [address] [place] [address] Dr. Lara Greene PCP Negative Normal NEGATIVE [facility] Comment on above: Performed By: #### D RUGRPD #### [facility] [address] [address] [address] Lara Greene PPX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
--- OUTSIDE RECORDS SUMMARY | 2025-02-08 16:06 | XMS_ITS | Encounter Summary ---
Author Organization [facility] Address [address] [place] [address] Care Team Providers Care Injection Maintenance Technician Name Role Phone Adalberto Cook DO Primary Care Provider Kailey Raymond Unavailable Encounter Details Date Type Department Care Team (Late st Contact Info) Description 10/06/2022 Abstract [facility] [address] [place] [address] Chandu Hernandez DO [address] Sergo Willis, [facility] Social History Tobacco Use Types Packs/Day Years [...] on filedocumented in this encounter Care Teams Injection Maintenance Technician Relationship Specialty Start Date End Date Adalberto Cook DO PCP - General Family Medicine 10/04/22 Kailey Raymond PA [address] [place] [address] Dr [place], [id number] PCP - [facility] 07/23/23 documented as of this encounter
--- NOTE | 2025-02-08 16:13 | PC.NURSE ---
palm of right hand under thumb is bruised with swelling. right hand thumb swelling and ice in place
--- NOTE | 2025-02-08 16:18 | XR_ITS ---
The [address] [address] Patient Name: HERBERT VIEYRA MRN: [id number] date: 1990 Sex: F Assigned Patient Location: ER Current Patient Location: ED.MAIN Accession/Order Number: [id number] Exam Date: 02/08/2025 16:30 Report Date: 02/08/2025 17:14 At the request of: JOSE LUIS GREER Procedure: XR hand RT min 3V XR hand RT min 3V 02/08/2025 4:34 PM SIGNS AND SYMPTOMS: ^attn thumb pain s/p injury ^Y PROTOCOL: 3 views of the right hand COMPARISON: None FINDINGS: The bones are in anatomic alignment. There is no evidence of acute displaced fracture. The joint spaces are preserved. No significant soft tissue swelling. XR/XR hand RT min 3V IMPRESSION: No fracture or dislocation. No significant soft tissue swelling. Impression dictated by: Brennen Dennison M.D. 02/08/2025 5:14 PM Dictation Location: [place] [address] Electronically authenticated by: [id number] Y Date: 02/08/2025 17:14
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
[2025-02-08] MEDS: IBUPROFEN 600 MG TABLET PO (16:25)
== END 2025-02-08 17:04 | disposition home or self-care (01) ==
PROVIDERS: Emergency Provider Emergency Medicine; PCP Family Medicine
DX: S60.011A Contusion of right thumb without damage to nail, initial encounter (principal); S63.91XA Sprain of unspecified part of right wrist and hand, initial encounter; M79.641 Pain in right hand; Z87.891 Personal history of nicotine dependence; Y04.0XXA Assault by unarmed brawl or fight, initial encounter; S63.601A Unspecified sprain of right thumb, initial encounter
CPT/HCPCS: 29125; 73130; 99283